=== PATIENT | male | born 1935 | race Two or more races ===

== ENCOUNTER → 2020-06-12 | Outpatient (CLI) | payer OTHER ==
--- NOTE | 2020-06-13 05:22 | MR ---
EXAMINATION TYPE: MR kidney wo/w con DATE OF EXAM: 06/12/2020 COMPARISON: None HISTORY: Rt Renal Cyst Complex CONTRAST: Standard multiplanar, multisequence MRI departmental protocol utilizing 7 mL intravenous Gadavist paul olinium contrast. Liver has normal size and contour. There is no focal defect. Gallbladder appears normal. The bile elvira ts are not dilated. Spleen has normal size.The pancreas appears normal. Pancreatic duct appears teresa l. There is no ascites. There is no adrenal mass. There are multiple bilateral renal cortical cysts. The largest measures 2 cm in the anterior right ki dney. There is no pathologic enhancement. The renal cysts do not show any enhancement. There is no ev idence of retroperitoneal adenopathy. There is 3.3 cm aneurysm of the lower abdominal aorta. IMPRESSION: Multiple bilateral renal cortical cysts. No evidence of a solid renal mass. Abdominal aortic aneurysm.
== END | disposition home or self-care (01) ==
LOC: RADMRIMAIN 16:53
PROVIDERS: ATTEND Urology
DX: N28.1 Cyst of kidney, acquired (principal); I71.4 Abdominal aortic aneurysm, without rupture
CPT/HCPCS: 74183; A9585

== ENCOUNTER → 2020-07-20 | Outpatient (CLI) | payer OTHER ==
--- NOTE | 2020-07-20 16:35 | MR ---
EXAMINATION TYPE: MR knee LT wo con DATE OF EXAM: 07/20/2020 COMPARISON: None available. HISTORY: Increased left knee pain TECHNIQUE: Multiplanar, multisequence imaging of the left knee is performed without IV contrast. FINDINGS: MEDIAL MENISCUS: Extensive, complex tear of the posterior horn and body. LATERAL MENISCUS: Htko-wd-foryclys mucoid degeneration without definite tear seen. CRUCIATE LIGAMENTS: The anterior and posterior cruciate ligaments are intact and unremarkable. COLLATERAL LIGAMENTS: Moderate bowing and increased signal within the medial collateral ligament, con sistent with grade 2 sprain. The lateral collateral ligament complex is grossly intact. EXTENSOR MECHANISM: Visualized quadriceps and patellar tendons are intact. EFFUSION: Moderate knee joint effusion. POPLITEAL CYST: No significant popliteal/bangura cyst. TRICOMPARTMENT SPACES: Mild to moderate joint space narrowing of the medial compartment, otherwise mi ld elsewhere. CARTILAGE: Medial compartment chondromalacia with large full-thickness chondral defects overlying the tibial plateau and femoral condyle. Small full-thickness chondral defect overlying the lateral tibia l plateau. Small partial thickness chondral defect involving the lateral compartment. BONE MARROW SIGNAL: Moderate bone marrow edema involving the medial femoral condyle and medial tibial plateau. OTHER: Moderate soft tissue edema about the knee most pronounced at the anterior medial compartment. IMPRESSION: Complex tearing of the medial meniscus posterior horn and body. Also medial compartment chondromalaci a with large full-thickness chondral defect. Associated moderate to marked bone marrow edema in the m edial compartment, likely reactive. No fracture line is seen. Grade 2 MCL sprain. Moderate soft tissue edema and joint effusion. 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
== END | disposition home or self-care (01) ==
LOC: RADMRIMAIN 09:38
PROVIDERS: ATTEND Nurse Practitioner Family
DX: S83.242A Other tear of medial meniscus, current injury, left knee, initial encounter (principal); S83.412A Sprain of medial collateral ligament of left knee, initial encounter; M79.89 Other specified soft tissue disorders; M94.262 Chondromalacia, left knee; R60.0 Localized edema; Z88.8 Allergy status to other drugs, medicaments and biological substances

== ENCOUNTER → 2021-12-02 | Outpatient (CLI) | payer OTHER | END | disposition home or self-care (01) | LOC: LABWHC1 09:31 | PROVIDERS: ATTEND Orthopaedic Surgery | DX: Z01.812 Encounter for preprocedural laboratory examination (principal); Z22.322 Carrier or suspected carrier of Methicillin resistant Staphylococcus aureus; M17.12 Unilateral primary osteoarthritis, left knee | CPT/HCPCS: 87070 ==

== ENCOUNTER 2021-12-23 10:13 | Day surgery (SDC) | payer OTHER ==
[2021-12-19 11:48] VITALS: BMI 23.6
--- NOTE | 2021-12-22 11:00 | HP ---
HISTORY AND PHYSICAL CHIEF COMPLAINT: Left knee pain. HISTORY OF PRESENT ILLNESS: The patient is an 86-year-old retired gentleman who presents with progressive left knee pain for the past several years, worsening recently. He notes anterior medial pain that increases with sitting, standing and prolonged walking. He notes it locks and merly on him. He has tried medications in addition to injections, with only temporary partial relief. PAST MEDICAL HISTORY: Significant for COPD and renal disease. PAST SURGICAL HISTORY: Significant for prostate surgery along with basal cell removal. CURRENT MEDICATIONS: Albuterol, amlodipine, aspirin, atorvastatin and Tylenol. ALLERGIES: HE DENIES DRUG ALLERGIES. FAMILY HISTORY: Significant for heart disease. SOCIAL HISTORY: Significant for previous tobacco use. REVIEW OF SYSTEMS: Sixteen-point review of systems otherwise reviewed and is noncontributory. PHYSICAL EXAMINATION: On examination, the patient is approximately 5 feet 7 inches, 145 pounds of mesomorphic habitus. HEENT exam is nonfocal. Neck is supple. He has painless passive motion of the left hip. Straight-leg raise is negative. Active motion of left knee: Minus 20 to 115 degrees of flexion. He has a large effusion. He is tender about the medial joint line. Collaterals are stable. Tevin is negative. Sofiya's is equivocal. He has genu varum alignment. His distal neurovascular exam appears intact in the left lower extremity. Weightbearing notch, lateral and Merchant views of the left knee obtained in the office show severe medial compartment osteoarthrosis with [id number] changes and varus deformity. IMPRESSION: 1. Left knee severe medial compartment osteoarthrosis. 2. History of chronic obstructive pulmonary disease. 3. History of renal disease. RECOMMENDATIONS: I talked to the patient at length regarding his condition along with treatment options. At this point he is quite symptomatic and limited because of pain related to his osteoarthrosis despite extensive previous conservative measures. After thorough discussion, he opts to proceed with surgery. We will plan to proceed with left total knee arthroplasty. We will institute DVT prophylaxis postoperatively. MMODL / IJN: [id number] /
[~2021-12-23 10:13] MED LIST: ACETAMINOPHEN TAB 500 MG TAB PO PRN; HYDROmorphone 0.5 MG/0.5 ML SYRINGE IVP PRN; MELOXICAM 7.5 MG TAB PO PRN; TRANEXAMIC ACID IN NACL,ISO-OS 1,000 MG in SALINE 1 100ML.BAG IVPB PRN
[2021-12-23] MEDS: LACTATED RINGERS 1,000 ML IV SCH ×2 (11:10→15:25)
[2021-12-23] MEDS: DEXAMETHASONE SOD PHOSPHATE 4 MG/ML 1 ML VIAL IV ONE ×2 (11:27→15:24)
[2021-12-23] MEDS: ONDANSETRON 4 MG/2 ML VIAL IVP ONE ×2 (11:27→15:24)
[2021-12-23] MEDS ORDERED: MIDAZOLAM 2 MG/2 ML VIAL IVP ONE ×2 (11:36→11:39)
--- NOTE | 2021-12-23 11:59 | P.ANPRN ---
Procedure Note - Anesthesia - Nerve Block Performed Left Adductor Canal Infusion Time Out Performed: Yes (1134) Date of Procedure: 12/23/21 Procedure Start Time: 11:35 Procedure Stop Time: 11:50 Location of Patient: PreOp Indication: Acute Post-Operative Pain, Requested by Surgeon Sedation Type: Sedate with meaningful contact maintained Preparation: Sterile Prep, Sterile Dressing Position: Supine Catheter Depth at Skin (cm): 5 Catheter: Indwelling Needle Types: Pajunk Needle Gauge: 18, 20 Ultrasound used to visualize needle placement: Yes Ultrasound used to observe medication spread: Yes Injectate: 0.5% Ropivacaine (see comment for volume) Blood Aspirated: No Pain Paresthesia on Injection Noted: No Resistance on Injection: Normal Image Stored and Saved: Yes Events: Uneventful and Well Tolerated (10 ML of preservative-free normal saline mixed with 10 mL of 0.5% ropivacaine)
--- NOTE | 2021-12-23 12:00 | P.ANPRN ---
Procedure Note - Anesthesia - Nerve Block Performed Left iPack Single Time Out Performed: Yes (1134) Date of Procedure: 12/23/21 Procedure Start Time: 11:35 Procedure Stop Time: 11:50 Location of Patient: PreOp Indication: Acute Post-Operative Pain, Requested by Surgeon Sedation Type: Sedate with meaningful contact maintained Preparation: Sterile Prep Position: Supine Needle Types: Pajunk Needle Gauge: 20 Ultrasound used to visualize needle placement: Yes Ultrasound used to observe medication spread: Yes Injectate: 0.5% Ropivacaine (see comment for volume) Blood Aspirated: No Pain Paresthesia on Injection Noted: No Resistance on Injection: Normal Image Stored and Saved: Yes Events: Uneventful and Well Tolerated (10 ML of preservative-free normal saline mixed with 10 mL of 0.5% ropivacaine)
[2021-12-23] MEDS ORDERED: ROPIVACAINE 5 MG/ML 30 ML VIAL ONE (12:24)
[2021-12-23] MEDS ORDERED: TRANEXAMIC ACID IN NACL,ISO-OS 1,000 MG/100 ML BAG ONE (12:24)
[2021-12-23] MEDS ORDERED: PROPOFOL 10 MG/ML 20 ML VIAL IV ONE (12:24)
[2021-12-23] MEDS ORDERED: SODIUM CHLORIDE 0.9% (PF) 10 ML VIAL ONE (12:24)
[2021-12-23] MEDS ORDERED: MIDAZOLAM 2 MG/2 ML VIAL ONE (12:24)
[2021-12-23] MEDS ORDERED: ceFAZolin 1,000 MG in SODIUM CHLORIDE 0.9% 1,000 ML IRRIGATION ONE (12:54)
[2021-12-23] MEDS ORDERED: HYDROmorphone 0.5 MG/0.5 ML SYRINGE IVP PRN (14:06)
[2021-12-23] MEDS ORDERED: MAGNESIUM HYDROXIDE 2,400 MG/10 ML CUP PO PRN (14:06)
[2021-12-23] MEDS ORDERED: NALOXONE 0.4 MG/ML 1 ML VIAL IV PRN (14:06)
[2021-12-23] MEDS ORDERED: HYDROcodone/APAP 5-325MG 1 EACH TAB PO PRN (14:06)
--- NOTE | 2021-12-23 14:27 | P.OP ---
Date of Procedure: 12/23/21 Preoperative Diagnosis: Left knee severe tricompartmental osteoarthrosis Postoperative Diagnosis: Same Procedure(s) Performed: Left total knee arthroplastycementedposterior stabilized Implants: Depuy Attune size 5 cemented femoral component, size 5 cemented tibial component, 10 mm articular surface, 38 mm cemented patellar component. This is a posterior stabilized implant. Anesthesia: regional, spinal Surgeon: Dirk Jacobson German Tutor #1: Alfonzo England Estimated Blood Loss (ml): 50 Pathology: other (Bone fragments) Condition: stable Disposition: PACU Indications for Procedure: The patient's an 86-year-old male who presents with progressive left knee pain secondary to osteoarthrosis despite extensive conservative measures. He discussion of the risks and benefits of operative intervention versus continued conservative measures was made with the patient. He opted to proceed with surgery. Operative risks to include infection, neurovascular injury, development of blood clots, possible component loosening/failure and need for subsequent procedures was discussed. Informed consent was obtained. Operative Findings: As below Description of Procedure: The patient was brought to the operating room, and after induction of spinal anesthesia the left lower extremity was prepped and draped in a normal fashion. The tourniquet was inflated to 270 mm marker. A longitudinal incision extending 3 finger breaths above the superior pole of patella extending to the medial aspect the tibial tubercle was then made. The skin and subcutaneous tissues were divided sharply. Electrocautery was used for hemostasis. A medial parapatellar arthrotomy was performed. The medial soft tissues to include the superficial and deep portions of the medial collateral ligament were elevated subperiosteally. The patella was everted. A portion of the retropatellar fat pad was excised sharply. The anterior cruciate ligament was sacrificed. Blunt retractors were placed. A starting hole was made in the distal femur 1 cm anterior to the posterior cruciate ligament origin. An intramedullary femoral guide was then inserted planning on 5 valgus distal cut with 9 mm distal resection. The cutting block was pinned in place. The distal cut was then made. The posterior referencing sizing guide was utilized. I felt size 5 was most appropriate. 3 of external rotation was built into the system and verified off the trans-epicondylar axis and the posterior condyles. The cutting block was pinned in place. The anterior, posterior, and chamfer cuts then made. Bone fragments were removed. The intercondylar guide was placed and the notch cut was made with a sagittal saw. The bone block was removed in one fragment. The trial component was then placed. There is good anterior to posterior and medial to lateral fit. The distal peg holes were drilled. The trial component was removed. Attention was then paid towards preparing the proximal femur. An extra medullary guide was utilized in line with the tibial shaft and second metatarsal distally. I planned on 2 mm resection from the medial compartment. The cutting block was pinned in place. The proximal tibial cut was then made. The bone was removed in one fragment. The remnants of the medial and lateral menisci were excised at the capsular junction with electrocautery. The tibia sized most appropriately at size 5. The trial femoral and tibial components were placed along with a 10 mm mm articular surface. I was able to obtain full flexion and extension with internal and external rotation. After several flexion and extension cycles, the tibial rotation was marked with electrocautery line with the medial one third of the tibial tubercle. Attention was then paid towards preparing the patella. A patella reamer was utilized taking stem to 14 mm of bone stock. A good flush cut was made. The patella sized most appropriately 38 mm. The peg holes were drilled. The trial components placed. I had good patellofemoral tracking with no hands technique. The trial components were then removed. The tibia was prepared in the appropriate rotation with appropriate drill and keel punch. The posterior osteophytes were removed with a curved osteotome. The flexion and extension gaps were checked and felt to be symmetric at 10 mm. A trial components were then removed. The bony surfaces were prepared with pulsatile lavage and dried. The tibial component was then cemented place was fully seated. Excess cement was removed. The femoral component cemented place and was fully seated. Excess cement was removed. The trial 10 mm articular surface was placed and the knee was put in full extension. The patella component was cemented place. After the cement had sufficiently hardened, the knee was again taken through a range of motion. Again I was able to obtain full flexion and extension with varus and valgus stress. The trial 10 mm articular surface was removed and the final one inserted. This was fully seated. Care was taken to avoid any soft tissue interposition. Pulsatile lavage was again utilized. The medial parapatellar arthrotomy was closed with #2 Ethibond suture. The tourniquet was deflated with approximately 60 minutes total tourniquet time. Final hemostasis was obtained with the cautery. There was minimal bleeding therefore a deep drain was not placed. The subcutaneous tissues were reapproximated with interrupted 2-0 Vicryl sutures. The skin was reapproximated with 3-0 subcuticular strata fix suture. Skin tape and adhesive was applied. A sterile dressing was applied. The patient was awoken from sedation and transferred to recovery room in good condition. Blood loss was estimated at 50 mL. No complications were incurred. Sponge and needle counts were correct at the end of the case. Alfonzo GARCIA assisted during the major components of this case to include exposure, bone resection, implantation, and closure.
[2021-12-23] MEDS ORDERED: ROPIVACAINE 0.2%-NS ON-Q PUMP 1,090 MG, EMPTY PAIN BALL 1 EACH MISCELLANE PRN (14:36)
--- NOTE | 2021-12-23 14:51 | XR ---
EXAMINATION TYPE: XR knee limited LT DATE OF EXAM: 12/23/2021 COMPARISON: 02/03/2021 HISTORY: 86-year-old male evaluation for postoperative abnormality in alignment TECHNIQUE: 2 views FINDINGS: Images show placement of left total knee arthroplasty. Both distal femoral and proximal tibial compon ents of the prosthesis are well seated without periprosthetic fracture. Underlying small joint effusi on along with intra-articular air as well as scattered soft tissue air related to recent operation. V ascular calcifications are present. Alignment grossly anatomic. IMPRESSION: Uncomplicated postoperative appearance left total knee arthroplasty.
[2021-12-23] MEDS: HYDROcodone/APAP 7.5-325MG 1 EACH TAB PO PRN (17:09)
[2021-12-23] MEDS ORDERED: ALBUTEROL NEBULIZED 1.25 MG/3 ML INHALATION PRN (18:08)
--- NOTE | 2021-12-23 18:16 | P.CONS ---
History of Present Illness - Reason for Consult Consult date: 12/23/21 - Chief Complaint left knee pain - History of Present Illness 86-year-old male with history of left knee osteoarthritis with progressive pain worsening over the past 6 months. Pain has been debilitating for the patient and he eventually decided to do something about it. Patient currently has 5 out of 10 pain in the left knee. He is status post left knee total arthroplasty. His medical history significant for hypertension, hyperlipidemia, COPD. Patient denied having any fevers chills, shortness of breath, chest pain, recent illness, cough, nausea, vomiting. Review of Systems Complete review of system performed, pertinent positives per HPI, otherwise negative Past Medical History Past Medical History: Cancer, COPD, Hyperlipidemia, Hypertension, Renal Disease Additional Past Medical History / Comment(s): Hx skin cancer, hx prostate cancer 15-20 yrs ago. 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 Past Anesthesia/Blood Transfusion Reactions: No Reported Reaction Past Psychological History: No Psychological Hx Reported Smoking Status: Former smoker Past Alcohol Use History: None Reported Additional Past Alcohol Use History / Comment(s): Quit smoking in 2017, smoked for 50 yrs, 2 ppd. Past Drug Use History: None Reported - Past Family History Mother Family Medical History: No Reported History Medications and Allergies Home Medications Medication Instructions Recorded Confirmed Type Albuterol Nebulized [Ventolin 1.25 mg INHALATION Q6H PRN 12/19/21 12/23/21 History Nebulized] Ascorbic Acid [Vitamin C] 500 mg PO DAILY 12/19/21 12/23/21 History Aspirin 81 mg PO DAILY 12/19/21 12/19/21 History Atorvastatin Calcium [Lipitor] 20 mg PO DAILY 12/19/21 12/23/21 History Budesonide-Formot 160-4.5 Mcg 2 puff INHALATION BID 12/19/21 12/23/21 History [Symbicort 160-4.5 Mcg Inhaler] Bumetanide 0.5 mg PO DAILY 12/19/21 12/23/21 History Cholecalciferol [Vitamin D3 (25 25 mcg PO DAILY 12/19/21 12/23/21 History Mcg = 1000 Iu)] Cyanocobalamin [Vitamin B-12] 500 mcg PO DAILY 12/19/21 12/23/21 History Fluticasone Propion/Salmeterol 1 inhalation PO BID 12/19/21 12/23/21 History [Fluticasone-Salmeterol 250-50] Ginkgo Biloba Bennett Extract [Ginkgo] 60 mg PO DAILY 12/19/21 12/19/21 History Lutein 10 mg PO DAILY 12/19/21 12/23/21 History Magnesium Oxide [Mag-Ox] 500 mg PO DAILY 12/19/21 12/23/21 History Montelukast Sodium [Singulair] 10 mg PO QAM 12/19/21 12/23/21 History Multivitamins, Thera [Multivitamin 1 tab PO DAILY 12/19/21 12/19/21 History (formulary)] Pyridoxine HCl (Vitamin B6) 100 mg PO DAILY 12/19/21 12/23/21 History [Vitamin B-6] Tiotropium 18 Mcg/Puff [Spiriva] 1 puff INHALATION DAILY 12/19/21 12/23/21 History Vit C/E/Zn/Coppr/Lutein/Zeaxan 1 each PO BID 12/19/21 12/19/21 History [Preservision Areds 2 Softgel] Zinc Acetate [Wilzin] 50 mg PO DAILY 12/19/21 12/23/21 History amLODIPine BESYLATE 5 mg PO QAM 12/19/21 12/23/21 History calcitrioL [Calcitriol] 0.25 mcg PO DAILY 12/19/21 12/23/21 History Allergies Allergy/AdvReac Type Severity Reaction Status Date / Time No Known Allergies Allergy Verified 12/23/21 10:51 Physical Exam Vitals: Vital Signs Temp Pulse Pulse Resp BP BP Pulse Ox 12/23/21 17:06 97.9 F 87 18 136/74 97 12/23/21 16:49 97.4 F L 81 18 166/76 96 12/23/21 16:06 97.8 F 18 L 18 133/67 96 12/23/21 15:11 74 16 153/67 100 12/23/21 15:06 98.4 F 81 17 166/69 96 12/23/21 14:56 75 16 146/67 100 12/23/21 14:41 73 16 110/53 100 12/23/21 14:26 96.9 F L 78 14 125/61 98 12/23/21 14:06 97.9 F 80 18 155/69 96 12/23/21 11:19 98.6 F 90 16 139/64 Intake and Output 12/23/21 12/23/21 12/23/21 06:59 14:59 22:59 Intake Total 851 100 Output Total 50 Balance 801 100 Intake: IV 851 100 Output: Estimated Blood Loss 50 Other: Voiding Method Urinal Weight 69 kg Constitutional: No acute distress, conversant, pleasant Eyes:Anicteric sclerae, moist conjunctiva, no lid-lag, PERRLA, ENMT: Oropharynx clear, no erythema, exudates Neck: Supple, FROM, no masses, or JVD, No carotid bruits, No thyromegaly Lungs: Clear to auscultation, Clear to percussion, Normal respiratory effort, no accessory muscle use Cardiovascular: Heart regular in rate and rhythm, No murmurs, gallops, or rubs, No peripheral edema Abdominal: Soft, Nontender, no guarding, rebound or rigidity, Normoactive bowel sounds, No hepatomegaly, No splenomegaly, No palpable mass Skin: Normal temperature, tone, texture, turgor, no induration, No subcutaneous nodules, No rash, lesions, No ulcers Extremities: Left knee with surgical dressing. No digital cyanosis, No clubbing, Pedal pulses intact and symmetrical, Radial pulses intact and symmetrical, No calf tenderness Psychiatric: Alert and oriented to person, place and time, appropriate affect, intact judgement Neuro: Muscles Strength 5/5 in all 4 extremities, Sensation to light touch grossly present throughout, Cranial nerves II-XII grossly intact, no focal sensory deficits Assessment and Plan Plan: Left knee pain status post total left knee arthroplasty Pain control with narcotics DVT prophylaxis, start when appropriate by the Surgical Team. PT Chronic conditions COPD Essential hypertension Hyperlipidemia All stable Resume home medications Thank you for the consult, please call with any questions.
[2021-12-23] MEDS: SYMBICORT 160-4.5 MCG INHALER INHALATION SCH (20:09)
[2021-12-23] MEDS ORDERED: CALCIUM CARBONATE LIQUID 500 MG/5 ML CUP PO STA (20:26)
[2021-12-23] MEDS ORDERED: SENNOSIDES-DOCUSATE SODIUM 1 EACH TAB PO SCH (21:00)
[2021-12-23] MEDS: ENOXAPARIN 30 MG/0.3 ML SYRINGE SQ SCH (21:55)
--- NOTE | 2021-12-24 07:27 | P.PN ---
Progress Note - Text Progress Note Date: 12/24/21 patient was seen and evaluated at bedside. Status post postoperative day 1 for left side total knee arthroplasty patient had adductor canal catheter for postop pain control. Patient rated pain at rest 2-3 out of 10 in severity. With activities pain levels 4-5 . Patient describes pain is aching, throbbing type on the sides of the knee and back of the knee. Patient started walking with support. With activity patient pain levels are 4-5 out of 10 in severity. With the help of oral pain medications pain levels are tolerable. Patient denied any weakness/ numbness in lower extremities. patient denied any fever, pain over the catheter site. Physical exam: Patient vital signs stable Patient is alert awake oriented 3 responding to all questions appropriately Examination of the catheter site showed dressing intact, no leaking fluid around the catheter, no redness, no tenderness over the catheter insertion area. plan: status post postoperative day 1 for right total knee arthroplasty with adductor canal catheter for pain control. Patient was discussed to continue the medication at the rate of 8 mL per hour until the pump is completely empty and instructed the patient how to discontinue the catheter.
[2021-12-24] MEDS ORDERED: IPRATROPIUM 0.5 MG/2.5 ML NEBU INHALATION SCH (08:00)
[2021-12-24] MEDS ORDERED: MONTELUKAST 10 MG TAB PO SCH (09:00)
[2021-12-24] MEDS ORDERED: ASPIRIN 81 MG PO SCH (09:00)
[2021-12-24] MEDS ORDERED: amLODIPine 5 MG TAB PO SCH (09:00)
[2021-12-24] MEDS ORDERED: ASCORBIC ACID 500 MG TAB PO SCH (09:00)
[2021-12-24] MEDS ORDERED: ATORVASTATIN 20 MG TAB PO SCH (09:00)
[2021-12-24] MEDS: HYDROcodone/APAP 7.5-325MG 1 EACH TAB PO PRN (09:22)
[2021-12-24] MEDS: ENOXAPARIN 30 MG/0.3 ML SYRINGE SQ SCH (09:22)
[2021-12-24 09:25] VITALS: BP 134/68; RESP 18; TEMP 97.9
[2021-12-24] MEDS: SYMBICORT 160-4.5 MCG INHALER INHALATION SCH (09:28)
[2021-12-24 09:31] VITALS: PULSE 100
[2021-12-24 10:32] LABS: Basophils # (A) 0.02 X 10*3/uL (0.00-0.10); Basophils % (A) 0.2 %; Eosinophils # (A) 0 X 10*3/uL (0.04-0.35); Eosinophils % (A) 0 %; HCT 38.5 % (39.6-50.0); HGB 12.9 g/dL (13.0-17.0); Immature Grans, Automated 1.1 %; Lymphocytes # (A) 1.14 X 10*3/uL (0.90-5.00); MCH 32.6 pg (27.0-32.0); MCHC 33.5 g/dL (32.0-37.0); MCV 97.2 fL (80.0-97.0); Mean Platelet Volume 9.9 fL (9.5-12.2); Monocytes # (A) 1.38 X 10*3/uL (0.20-1.00); NRBC Per 100 WBC 0 /100 WBCS (0.0-0.0); Neutrophils # (A) 9.92 X 10*3/uL (1.80-7.70); Neutrophils % (A) 78.7 %; Platelet Count 243 X 10*3/uL (140-440); RBC 3.96 X 10*6/uL (4.40-5.60)
--- NOTE | 2021-12-24 10:54 | P.DS ---
Providers Date of admission: 12/23/2021 Expected date of discharge: 12/24/21 Attending physician: Dirk Jacobson Consults: 12/23/21 14:10 Consult Physician Routine Consulting Provider: Laxmi Boyce Consult Reason/Comments: Medical Management s/p left total knee arthroplasty Do you want consulting provider notified?: Yes Primary care physician: Stated None Hospital Course: Date of admission: 12/23/2021 Date of discharge: 12/24/2021 Admission diagnosis: Left knee osteoarthritis Discharge diagnosis: Same Attending physician: Dr. Jacobson Surgical procedures: Left total knee arthroplasty Brief history: Patient is a 86-year-old male with a history of progressive primary left knee osteoarthritis. At this point patient has failed conservative treatment measures and has opted to proceed with a elective left total knee arthroplasty. Hospital course: Details of patient's surgery can be found in operative report. Patient tolerated the procedure well and was subsequently transported to orthopedic floor. Patient's orthopeidc and medical care was provided daily. Patient had daily laboratory tests performed for evaluation of overall blood counts. Patient had daily physical therapy to include strengthening range of motion as well as education with walker ambulation. Patient was treated with Lovenox for their postoperative DVT prophylaxis during their inpatient stay. Patient was noted to have a relatively uneventful postoperative course. Patient reported satisfactory pain control with oral pain medications by postoperative day 1. Patient showed satisfactory progress with physical therapy. Patient moved steadily through the program and had no difficulty meeting the goals by postoperative day 1. Given patient's otherwise satisfactory course and having met physical therapy goals, plan is to discharge patient home with health services on postoperative day 1. Discharge condition/disposition: Patient will be discharged home with health services in stable condition. Discharge medications: Instructions are given on resumption of patient's normal daily medications per primary care recommendation, in addition patient will be prescribed [place] 5mg/325mg; Colace; Eliquis 2.5 mg BID x 2 weeks. Discharge instructions: 1. Wound care and infection precautions, keep incision dry and covered while showering, no lotions, creams, moisturizers. No soaking, tubs, pools, hottubs. Do not scrub over the incision. 2. Weight-bear as tolerated with walker / cane until follow-up. 3. Ice and elevate when necessary. Do not exceed 20 minutes per hour with ice pack. 4. Utilize compression sleeve until seen at first follow up appointment. 5. Visiting nursing care. 6. Home physical therapy including home CPM. 7. Pain meds and anticoagulants per prescription. 8. Pain medication has potential to cause constipation. Increase oral fluid and fiber intake. Contact primary care provider if you have not had a bowel movement within 48 hours after discharge 9. No anti-inflammatory medication until discussed at first post operative visit, this including Motrin, Aleve, Mobic, Diclofenac. 10. Follow up in office at 2 weeks postop with Bonifacio Rodriguez PA-C / Alfonzo England PA-C 11. Follow up with your primary care doctor 7-10 days after discharge. 12. Contact [facility] with any questions, . Assessment: Left knee osteoarthritis Procedures: Left total knee arthroplasty Patient Condition at Discharge: Good Plan - Discharge Summary Discharge Rx Participant: Yes New Discharge Prescriptions: New HYDROcodone/APAP 5-325MG [[place] 5-325] 1 tab PO Q6HR PRN #36 tab PRN Reason: Pain Apixaban [Eliquis] 2.5 mg PO BID #60 tab Docusate [Colace] 100 mg PO DAILY #30 capsule No Action Cyanocobalamin [Vitamin B-12] 500 mcg PO DAILY Cholecalciferol [Vitamin D3 (25 Mcg = 1000 Iu)] 25 mcg PO DAILY calcitrioL [Calcitriol] 0.25 mcg PO DAILY amLODIPine BESYLATE 5 mg PO QAM Zinc Acetate [Wilzin] 50 mg PO DAILY Vit C/E/Zn/Coppr/Lutein/Zeaxan [Preservision Areds 2 Softgel] 1 each PO BID Ginkgo Biloba [place] Extract [Ginkgo] 60 mg PO DAILY Bumetanide 0.5 mg PO DAILY Tiotropium 18 Mcg/Puff [Spiriva] 1 puff INHALATION DAILY Multivitamins, Thera [Multivitamin (formulary)] 1 tab PO DAILY Montelukast Sodium [Singulair] 10 mg PO QAM Budesonide-Formot 160-4.5 Mcg [Symbicort 160-4.5 Mcg Inhaler] 2 puff INH ALATION BID Ascorbic Acid [Vitamin C] 500 mg PO DAILY Albuterol Nebulized [Ventolin Nebulized] 1.25 mg INHALATION Q6H PRN PRN Reason: COPD Pyridoxine HCl (Vitamin B6) [Vitamin B-6] 100 mg PO DAILY Magnesium Oxide [Mag-Ox] 500 mg PO DAILY Lutein 10 mg PO DAILY Fluticasone Propion/Salmeterol [Fluticasone-Salmeterol 250-50] 1 inhalation PO BID Atorvastatin Calcium [Lipitor] 20 mg PO DAILY Discharge Medication List Albuterol Nebulized [Ventolin Nebulized] 1.25 mg INHALATION Q6H PRN 12/19/21 [History] Ascorbic Acid [Vitamin C] 500 mg PO DAILY 12/19/21 [History] Atorvastatin Calcium [Lipitor] 20 mg PO DAILY 12/19/21 [History] Budesonide-Formot 160-4.5 Mcg [Symbicort 160-4.5 Mcg Inhaler] 2 puff INHALATION BID 12/19/21 [History] Bumetanide 0.5 mg PO DAILY 12/19/21 [History] Cholecalciferol [Vitamin D3 (25 Mcg = 1000 Iu)] 25 mcg PO DAILY 12/19/21 [History] Cyanocobalamin [Vitamin B-12] 500 mcg PO DAILY 12/19/21 [History] Fluticasone Propion/Salmeterol [Fluticasone-Salmeterol 250-50] 1 inhalation PO BID 12/19/21 [History] Ginkgo Biloba [place] Extract [Ginkgo] 60 mg PO DAILY 12/19/21 [History] Lutein 10 mg PO DAILY 12/19/21 [History] Magnesium Oxide [Mag-Ox] 500 mg PO DAILY 12/19/21 [History] Montelukast Sodium [Singulair] 10 mg PO QAM 12/19/21 [History] Multivitamins, Thera [Multivitamin (formulary)] 1 tab PO DAILY 12/19/21 [History] Pyridoxine HCl (Vitamin B6) [Vitamin B-6] 100 mg PO DAILY 12/19/21 [History] Tiotropium 18 Mcg/Puff [Spiriva] 1 puff INHALATION DAILY 12/19/21 [History] Vit C/E/Zn/Coppr/Lutein/Zeaxan [Preservision Areds 2 Softgel] 1 each PO BID 12/19/21 [History] Zinc Acetate [Wilzin] 50 mg PO DAILY 12/19/21 [History] amLODIPine BESYLATE 5 mg PO QAM 12/19/21 [History] calcitrioL [Calcitriol] 0.25 mcg PO DAILY 12/19/21 [History] Apixaban [Eliquis] 2.5 mg PO BID #60 tab 12/24/21 [Rx] Docusate [Colace] 100 mg PO DAILY #30 capsule 12/24/21 [Rx] HYDROcodone/APAP 5-325MG [[place] 5-325] 1 tab PO Q6HR PRN #36 tab 12/24/21 [Rx] Follow up Appointment(s)/Referral(s): Alfonzo England, JOSE ENRIQUE [PHYSICIAN EVENTS TRAFFIC CONTROLLER] - 2 Weeks Patient Instructions/Handouts: *Surgery [facility] - On-Q Pain Pump Discharge Instructions, Knee Replacement (DC) Activity/Diet/Wound Care/Special Instructions: Orthopedic Discharge Instructions: 1. Wound care and infection precautions, keep incision dry and covered while showering, no lotions, creams, moisturizers. No soaking, pools, hot tubs. Do not scrub over incision. 2. Weight-bear as tolerated with walker / cane until follow-up. 3. Ice and elevate when necessary. Do not exceed 20 minutes per hour with ice pack. 4. Utilize compression sleeve until seen at first follow up appointment. 5. Pain meds and anticoagulants per prescription. 6. Pain medication has potential to cause constipation. Increase oral fluid and fiber intake. Contact primary care provider if you have not had a bowel movement within 48 hours after discharge. 7. No anti-inflammatory medication until discussed at first post operative visit, this including Motrin, Aleve, Mobic, Diclofenac. 8. Follow up in office at 2 weeks postop with Bonifacio Rodriguez PA-C / Alfonzo England PA-C 9. Follow up with your primary care doctor 7-10 days after discharge. 10. Contact [facility] with any questions, . Keep incision clean, dry, intact. Keep mesh tape on until follow-up appointment in office in 2 weeks. While showering, cover mesh tape with Saran wrap. Medications: [place] 5 mg/325 mg; Colace; Eliquis 2.5 mg BID x 2 weeks Discharge Disposition: HOME WITH HOME HEALTH SERVICES
--- NOTE | 2021-12-24 11:44 | P.PN ---
Subjective Progress Note Date: 12/24/21 Principal diagnosis: knee pain Doing well, has some mild knee pain worse with ambulation. Able to walk well. No cp or sob. Objective - Vital Signs Vital signs: Vital Signs Temp 97.9 F 12/24/21 08:00 Pulse 100 12/24/21 09:30 Resp 18 12/24/21 08:00 BP 134/68 12/24/21 08:00 Pulse Ox 97 12/24/21 08:00 Intake & Output 12/23/21 12/24/21 12/24/21 18:59 06:59 18:59 Intake Total 1531 1400 Output Total 240 Balance 1291 1400 Weight 69 kg Intake: IV 951 Intake, IV Titration 1200 Amount ceFAZolin 2 gm In Sodium 1200 Chloride 0.9% 50 ml @ 100 mls/hr IVPB Q8H [facility] Rx#: [id number] Oral 580 200 Output: Urine 190 Estimated Blood Loss 50 Other: Voiding Method Urinal Urinal # Voids 2 # Bowel Movements 1 - Exam Constitutional: No acute distress, conversant, pleasant Eyes:Anicteric sclerae, moist conjunctiva, no lid-lag, PERRLA, ENMT: Oropharynx clear, no erythema, exudates Neck: Supple, FROM, no masses, or JVD, No carotid bruits, No thyromegaly Lungs: Clear to auscultation, Clear to percussion, Normal respiratory effort, no accessory muscle use Cardiovascular: Heart regular in rate and rhythm, No murmurs, gallops, or rubs, No peripheral edema Abdominal: Soft, Nontender, no guarding, rebound or rigidity, Normoactive bowel sounds, No hepatomegaly, No splenomegaly, No palpable mass Skin: Normal temperature, tone, texture, turgor, no induration, No subcutaneous nodules, No rash, lesions, No ulcers Extremities: Left knee dressings. No digital cyanosis, No clubbing, Pedal pulses intact and symmetrical, Radial pulses intact and symmetrical, No calf tenderness Psychiatric: Alert and oriented to person, place and time, appropriate affect, intact judgement Neuro: Muscles Strength 5/5 in all 4 extremities, Sensation to light touch grossly present throughout, Cranial nerves II-XII grossly intact, no focal sensory deficits - Labs CBC & Chem 7: 12/24/21 05:12 Labs: Abnormal Lab Results - Last 24 Hours (Table) 12/24/21 Range/Units 05:12 WBC 12.60 H (4.50-10.00) X 10*3/uL RBC 3.96 L (4.40-5.60) X 10*6/uL Hgb 12.9 L (13.0-17.0) g/dL Hct 38.5 L (39.6-50.0) % MCV 97.2 H (80.0-97.0) fL MCH 32.6 H (27.0-32.0) pg Immature Gran # 0.14 H (0.00-0.04) X 10*3/uL Neutrophils # 9.92 H (1.80-7.70) X 10*3/uL Monocytes # 1.38 H (0.20-1.00) X 10*3/uL Eosinophils # 0 L (0.04-0.35) X 10*3/uL Assessment and Plan Plan: Left knee pain status post total left knee arthroplasty Pain control with narcotics DVT prophylaxis, start when appropriate by the Surgical Team. PT Chronic conditions COPD Essential hypertension Hyperlipidemia All stable Resume home medications Dispo: planning home today per surgery Thank you for the consult, please call with any questions.
--- NOTE | 2021-12-24 13:09 | P.PN ---
Subjective Progress Note Date: 12/24/21 Principal diagnosis: Left knee osteoarthritis Patient was seen at bedside this morning resting, sitting up in chair with legs elevated. Patient says he did get up with physical therapy this morning and walked down the arvizu and up-and-down a couple steps. Patient says he is ready to go home. Patient says he does have a walker for home. Patient says he has been icing his knee. Patient says he did have a small bowel movement since surgery yesterday. Patient says he is having some pain at the front of the knee. Patient denies chest pain, fever, shortness breath, nausea, vomiting, change in vision, loss of bowel/bladder control. Objective - Vital Signs Vital signs: Vital Signs Temp 97.9 F 12/24/21 08:00 Pulse 100 12/24/21 09:30 Resp 18 12/24/21 08:00 BP 134/68 12/24/21 08:00 Pulse Ox 97 12/24/21 08:00 Intake & Output 12/23/21 12/24/21 12/24/21 18:59 06:59 18:59 Intake Total 1531 1400 Output Total 240 Balance 1291 1400 Weight 69 kg Intake: IV 951 Intake, IV Titration 1200 Amount ceFAZolin 2 gm In Sodium 1200 Chloride 0.9% 50 ml @ 100 mls/hr IVPB Q8H [facility] Rx#: [id number] Oral 580 200 Output: Urine 190 Estimated Blood Loss 50 Other: Voiding Method Urinal Urinal # Voids 2 # Bowel Movements 1 - Exam Left knee: Incision is clean, dry, and intact. The mesh tape is in good condition. There is minimal soft tissue swelling and ecchymosis surrounding the medial and lateral aspects of the incision. Calf is soft, no tenderness with palpation. Plantar flexion, dorsiflexion, EHL, FHL are intact. Sensory exam to light touch throughout the extremity is intact, dorsal pedis pulses 2+. - Labs CBC & Chem 7: 12/24/21 05:12 Labs: Abnormal Lab Results - Last 24 Hours (Table) 12/24/21 Range/Units 05:12 WBC 12.60 H (4.50-10.00) X 10*3/uL RBC 3.96 L (4.40-5.60) X 10*6/uL Hgb 12.9 L (13.0-17.0) g/dL Hct 38.5 L (39.6-50.0) % MCV 97.2 H (80.0-97.0) fL MCH 32.6 H (27.0-32.0) pg Immature Gran # 0.14 H (0.00-0.04) X 10*3/uL Neutrophils # 9.92 H (1.80-7.70) X 10*3/uL Monocytes # 1.38 H (0.20-1.00) X 10*3/uL Eosinophils # 0 L (0.04-0.35) X 10*3/uL Assessment and Plan Assessment: 1. Left knee osteoarthritis -Postoperative day #1 status post left total knee arthroplasty Plan: 1. Left knee osteoarthritis - left total knee arthroplasty performed yesterday, 12/23/2021. Patient stable at bedside this morning. Plan discharge home today with health services 2. Appreciate medical management 3. Pain management - [facility]; Dilaudid only if necessary 4. DVT prophylaxis - Lovenox in hospital; Eliquis 2.5 mg BID x 2 weeks once home 5. GI prophylaxis - Colace 6. PT/OT - weight bearing as tolerated with walker 7. Encourage incentive spirometer use 8. Discharge planning - discharge home today with health services Time with Patient: Less than 30
== END 2021-12-24 11:39 | disposition home health service (06) ==
LOC: OR 10:13 → 4SSUR 14:26 → OR 12-24 11:39
PROVIDERS: ATTEND Orthopaedic Surgery
DX: M17.12 Unilateral primary osteoarthritis, left knee (principal); J44.9 Chronic obstructive pulmonary disease, unspecified; N28.9 Disorder of kidney and ureter, unspecified; Z98.890 Other specified postprocedural states; Z82.49 Family history of ischemic heart disease and other diseases of the circulatory system; Z87.891 Personal history of nicotine dependence; M21.162 Varus deformity, not elsewhere classified, left knee; Z20.822 Contact with and (suspected) exposure to COVID-19; I10 Essential (primary) hypertension; E78.5 Hyperlipidemia, unspecified; Z90.79 Acquired absence of other genital organ(s); Z97.2 Presence of dental prosthetic device (complete) (partial); Z79.899 Other long term (current) drug therapy; Z79.82 Long term (current) use of aspirin; Z79.51 Long term (current) use of inhaled steroids
CPT/HCPCS: 27447; 94640 ×3; 97161; 64999; 64448; 76942; 85025; 88300; 87635; 73560; C1713 ×2; C1776; J2250; J1100; J0690 ×3; J2405; J1650; J2795 ×2; J2704

== ENCOUNTER → 2022-02-17 | Outpatient (CLI) | payer OTHER ==
--- NOTE | 2022-02-17 20:36 | US ---
EXAMINATION TYPE: US kidneys/renal and bladder DATE OF EXAM: 02/17/2022 COMPARISON: Correlation MRI 06/12/2020 CLINICAL HISTORY: 86-year-old male N18.32 CHRONIC KIDNEY DISEASE. CKD, known cystic kidneys TECHNIQUE: Multiple sonographic images of the kidneys and bladder are obtained. FINDINGS: EXAM MEASUREMENTS: Right Kidney: 10.5 x 4.9 x 4.9 cm Left Kidney: 10.6 x 5.5 x 5.0 cm Right Kidney: Thin and echogenic renal cortex. Multiple cysts, largest lower pole= 2.4 x 1.8 x 2.4 cm . No hydronephrosis. Left Kidney: Pain and echogenic renal cortex. Small cyst lower pole= 0.7 cm. No hydronephrosis. Bladder: Possible multiple small bladder wall diverticula Bilateral Jets seen: Yes IMPRESSION: 1. Changes of chronic medical renal disease. 2. Scattered bilateral renal cysts, largest on the right measuring 2.4 cm and on the left measuring 7 mm. 3. No hydronephrosis. 4. Trabeculated appearance to the bladder suggesting bladder wall hypertrophy and possible chronic bl adder outlet obstruction. Clinically correlate.
== END | disposition home or self-care (01) ==
LOC: RADUSWWP 12:07
PROVIDERS: ATTEND Internal Medicine Nephrology
DX: N28.1 Cyst of kidney, acquired (principal); N18.32 Chronic kidney disease, stage 3b; N32.89 Other specified disorders of bladder
CPT/HCPCS: 76770

== ENCOUNTER → 2022-07-14 | Outpatient (CLI) | payer OTHER ==
--- NOTE | 2022-07-14 09:30 | CTL ---
EXAMINATION TYPE: CT Low Dose Lung DATE OF EXAM ORDERED: 07/14/2022 HISTORY: . Lung cancer screening CT DLP: 81.[address] CTDI: 2.3 mGy Automated exposure control for dose reduction was used. SCREENING VISIT: COMPARISON: None TECHNIQUE: Low dose computed tomography scan was performed through the chest at 1 mm thick sections a nd reconstructed images in multiple planes at 1 mm and [address] DIAGNOSTIC QUALITY: Satisfactory FINDINGS: Biapical pleural thickening. There is a nodule left upper lobe measuring 8 mm along the major fissure . There are sub-5 mm subpleural nodules noted. 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 No focal pneumonia. Central and basilar bronchiectasi s noted. Coronary artery calcifications are seen and is atherosclerotic change aorta. Heart size normal. Hyper trophic degenerative changes of the spine no pathologic adenopathy identified. Underlying emphysemato us changes seen. No pleural or parenchymal calcifications. Small hiatal hernia. Localized area of pleural thickening s een within the right lower lobe posteriorly. IMPRESSION: 1. 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 2. There is a 8 mm nodule along the major fissure left upper lobe. Additional sub-5 mm subpleural nod ule seen. 3. Dense coronary artery calcification. 4. Basilar and central bronchiectasis CT LUNG RAD AND CT CHEST RECOMMENDATION: Lung-Rad 3 Probably Benign: 6 month follow-up LDCT.
== END | disposition home or self-care (01) ==
LOC: RADCTMAIN 08:31
DX: J44.9 Chronic obstructive pulmonary disease, unspecified (principal); R91.8 Other nonspecific abnormal finding of lung field; Z87.891 Personal history of nicotine dependence
CPT/HCPCS: 71271

== ENCOUNTER → 2022-07-27 | Outpatient (CLI) | payer OTHER ==
--- NOTE | 2022-07-27 13:39 | US ---
EXAMINATION TYPE: US kidneys/renal and bladder DATE OF EXAM: 07/27/2022 COMPARISON: Renal ultrasound 02/17/2022. CLINICAL HISTORY: N18.32 ckd stage 3b. CKD, no symptoms EXAM MEASUREMENTS: Right Kidney: 9.8 x 4.4 x 4.7 cm Left Kidney: 9.6 x 3.2 x 4.8 cm Right Kidney: 1.8 x 2.1 x 1.8 cm complex cyst redemonstrated. Mild cortical thinning with loss of cor tical medullary differentiation. No shadowing calculi. Left Kidney: No hydronephrosis or masses seen . Mild cortical thinning with loss of cortical medulla ry differentiation. No shadowing calculi. Bladder: wnl Bilateral Jets seen: Yes IMPRESSION: 1. No obstructive uropathy or shadowing renal calculi. 2. Stable right renal complex cyst. 3. Findings of chronic medical renal disease.
== END | disposition home or self-care (01) ==
LOC: RADUSWWP 11:43
PROVIDERS: ATTEND Internal Medicine
DX: N18.32 Chronic kidney disease, stage 3b (principal); N28.1 Cyst of kidney, acquired
CPT/HCPCS: 76770

== ENCOUNTER 2022-09-13 11:30 | Inpatient (IN) | payer OTHER, MEDICARE ==
--- NOTE | 2022-09-13 12:08 | ED ---
General Adult HPI - General Chief complaint: Fall Stated complaint: Fall Time Seen by Provider: 09/13/22 11:32 Source: patient Mode of arrival: EMS Limitations: no limitations - History of Present Illness Initial comments: Dictation was produced using [employer] dictation software. please excuse any grammatical, word or spelling errors. Chief Complaint: 87-year-old male presents emergency Department after being found down History of Present Illness: Patient is a 7-year-old male who lives at home by himself. Patient was found down at home. Patient allegedly tripped on a rubber mat. Patient is not the best historian. He lives by himself. Family spoke with him 2 days ago and he seemed fine. Family went to go check on him today after not hearing from him yesterday. They found him on the ground. Patient complains of left knee pain. No other complaints at this time. The ROS documented in this emergency department record has been reviewed and confirmed by me. Those systems with pertinent positive or negative responses h ave been documented in the HPI. All other systems are other negative and/or noncontributory. PHYSICAL EXAM: General Impression: Alert and oriented x3, not in acute distress HEENT: Abrasion to the top of the head, extra-ocular movements intact, pupils equal and reactive to light bilaterally, mucous membranes moist. Cardiovascular: Heart regular rate and rhythm Chest: Able to complete full sentences, no retractions, no tachypnea Abdomen: abdomen soft, non-tender, non-distended, no organomegaly Musculoskeletal: Pulses present and equal in all extremities, no peripheral edema Motor: no focal deficits noted Neurological: CN II-XII grossly intact, no focal motor or sensory deficits noted Skin: Intact with no visualized rashes Psych: Normal affect and mood ED course: 87-year-old male presents emergency department after being found the ground. Some clear palpation was on the ground for. There is concern of rhabdomyolysis along with traumatic injury. Nothing obvious on physical examination. Vital signs upon arrival are within acceptable limits. Nursing notes and chart review was performed Computed tomography scan head and C-spine shows no acute processes. A 6 and pelvis x-ray are unremarkable. X-rays also negative. Laboratory evaluation obtained. CBC unremarkable. Metabolic panel within acceptable limits. CK is 23,693 suggesting rhabdomyolysis. Troponin 0.091 with secondary to muscle damage. Patient admitted to [facility] with consultation to nephrology. My EKG interpretation: Ventricular rate 86, sinus rhythm,. 177, QS 111, QTc 4:30. No GA prolongation, no QTC prolongation, no ST or T-wave changes noted. . Overall, this EKG is unremarkable Critical Care: yes Critical Care time: 33 minutes - Related Data Home Medications Medication Instructions Recorded Confirmed Albuterol Nebulized [Ventolin 1.25 mg INHALATION Q6H PRN 12/19/21 12/23/21 Nebulized] Ascorbic Acid [Vitamin C] 500 mg PO DAILY 12/19/21 12/23/21 Atorvastatin Calcium [Lipitor] 20 mg PO DAILY 12/19/21 12/23/21 Budesonide-Formot 160-4.5 Mcg 2 puff INHALATION BID 12/19/21 12/23/21 [Symbicort 160-4.5 Mcg Inhaler] Bumetanide 0.5 mg PO DAILY 12/19/21 12/23/21 Cholecalciferol [Vitamin D3 (25 25 mcg PO DAILY 12/19/21 12/23/21 Mcg = 1000 Iu)] Cyanocobalamin [Vitamin B-12] 500 mcg PO DAILY 12/19/21 12/23/21 Fluticasone Propion/Salmeterol 1 inhalation PO BID 12/19/21 12/23/21 [Fluticasone-Salmeterol 250-50] Ginkgo Biloba Milfay Extract [Ginkgo] 60 mg PO DAILY 12/19/21 12/19/21 Lutein 10 mg PO DAILY 12/19/21 12/23/21 Magnesium Oxide [Mag-Ox] 500 mg PO DAILY 12/19/21 12/23/21 Montelukast Sodium [Singulair] 10 mg PO QAM 12/19/21 12/23/21 Multivitamins, Thera [Multivitamin 1 tab PO DAILY 12/19/21 12/19/21 (formulary)] Pyridoxine HCl (Vitamin B6) 100 mg PO DAILY 12/19/21 12/23/21 [Vitamin B-6] Tiotropium 18 Mcg/Puff [Spiriva] 1 puff INHALATION DAILY 12/19/21 12/23/21 Vit C/E/Zn/Coppr/Lutein/Zeaxan 1 each PO BID 12/19/21 12/19/21 [Preservision Areds 2 Softgel] Zinc Acetate [Wilzin] 50 mg PO DAILY 12/19/21 12/23/21 amLODIPine BESYLATE 5 mg PO QAM 12/19/21 12/23/21 calcitrioL [Calcitriol] 0.25 mcg PO DAILY 12/19/21 12/23/21 Previous Rx's Medication Instructions Recorded Apixaban [Eliquis] 2.5 mg PO BID #60 tab 12/24/21 Docusate [Colace] 100 mg PO DAILY #30 capsule 12/24/21 HYDROcodone/APAP 5-325MG [Henderson 1 tab PO Q6HR PRN #36 tab 12/24/21 5-325] Allergies Allergy/AdvReac Type Severity Reaction Status Date / Time No Known Allergies Allergy Verified 09/13/22 11:42 Review of Systems ROS Statement: Those systems with pertinent positive or pertinent negative responses have been documented in the HPI. ROS Other: All systems not noted in ROS Statement are negative. Past Medical History Past Medical History: Cancer, COPD, Hyperlipidemia, Hypertension, Renal Disease Additional Past Medical History / Comment(s): Hx skin cancer, hx prostate cancer 15-20 yrs ago. 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 Past Anesthesia/Blood Transfusion Reactions: No Reported Reaction Past Psychological History: No Psychological Hx Reported Smoking Status: Former smoker Past Alcohol Use History: None Reported Past Drug Use History: None Reported - Past Family History Mother Family Medical History: No Reported History General Exam Limitations: no limitations Course Vital Signs 09/13/22 09/13/22 09/13/22 11:36 13:18 14:02 Temperature 97.8 F Pulse Rate 93 93 96 Respiratory 18 18 18 Rate Blood Pressure 186/113 167/73 163/93 O2 Sat by Pulse 95 95 95 Oximetry Medical Decision Making - Lab Data Result diagrams: 09/13/22 11:58 09/13/22 11:58 Lab Results 09/13/22 09/13/22 09/13/22 Range/Units 11:58 11:58 11:58 WBC 8.3 (3.8-10.6) k/uL RBC 4.62 (4.30-5.90) m/uL Hgb 15.5 (13.0-17.5) gm/dL Hct 43.7 (39.0-53.0) % MCV 94.7 (80.0-100.0) fL MCH 33.5 (25.0-35.0) pg MCHC 35.3 (31.0-37.0) g/dL RDW 12.4 (11.5-15.5) % Plt Count 249 (150-450) k/uL MPV 8.4 Neutrophils % (Manual) 77 % Band Neuts % (Manual) 8 % Lymphocytes % (Manual) 8 % Monocytes % (Manual) 7 % Neutrophils # (Manual) 7.00 (1.3-7.7) k/uL Lymphocytes # (Manual) 0.66 L (1.0-4.8) k/uL Monocytes # (Manual) 0.58 (0-1.0) k/uL Nucleated RBCs 0 (0-0) /100 WBC Manual Slide Review Performed RBC Morphology Normal PT 10.3 (9.0-12.0) sec INR 1.0 (<1.2) APTT 22.0 (22.0-30.0) sec Sodium 145 (137-145) mmol/L Potassium 3.8 (3.5-5.1) mmol/L Chloride 111 H (98-107) mmol/L Carbon Dioxide 23 (22-30) mmol/L Anion Gap 11 mmol/L BUN 62 H (9-20) mg/dL Creatinine 1.72 H (0.66-1.25) mg/dL Est GFR (CKD-EPI)AfAm 41 (>60 ml/min/1.73 sqM) Est GFR (CKD-EPI)NonAf 35 (>60 ml/min/1.73 sqM) Glucose 133 H (74-99) mg/dL Plasma Lactic Acid Jose Alberto (0.7-2.0) mmol/L Calcium 8.4 (8.4-10.2) mg/dL Magnesium 2.6 H (1.6-2.3) mg/dL Total Bilirubin 1.0 (0.2-1.3) mg/dL AST 752 H (17-59) U/L ALT 269 H (4-49) U/L Alkaline Phosphatase 67 (38-126) U/L Creatine Kinase 26479 H* (55-170) U/L Troponin I (0.000-0.034) ng/mL Total Protein 7.0 (6.3-8.2) g/dL Albumin 3.9 (3.5-5.0) g/dL Lipase 25 (23-300) U/L 09/13/22 09/13/22 Range/Units 11:58 11:58 WBC (3.8-10.6) k/uL RBC (4.30-5.90) m/uL Hgb (13.0-17.5) gm/dL Hct (39.0-53.0) % MCV (80.0-100.0) fL MCH (25.0-35.0) pg MCHC (31.0-37.0) g/dL RDW (11.5-15.5) % Plt Count (150-450) k/uL MPV Neutrophils % (Manual) % Band Neuts % (Manual) % Lymphocytes % (Manual) % Monocytes % (Manual) % Neutrophils # (Manual) (1.3-7.7) k/uL Lymphocytes # (Manual) (1.0-4.8) k/uL Monocytes # (Manual) (0-1.0) k/uL Nucleated RBCs (0-0) /100 WBC Manual Slide Review RBC Morphology PT (9.0-12.0) sec INR (<1.2) APTT (22.0-30.0) sec Sodium (137-145) mmol/L Potassium (3.5-5.1) mmol/L Chloride (98-107) mmol/L Carbon Dioxide (22-30) mmol/L Anion Gap mmol/L BUN (9-20) mg/dL Creatinine (0.66-1.25) mg/dL Est GFR (CKD-EPI)AfAm (>60 ml/min/1.73 sqM) Est GFR (CKD-EPI)NonAf (>60 ml/min/1.73 sqM) Glucose (74-99) mg/dL Plasma Lactic Acid Jose Alberto 1.2 (0.7-2.0) mmol/L Calcium (8.4-10.2) mg/dL Magnesium (1.6-2.3) mg/dL Total Bilirubin (0.2-1.3) mg/dL AST (17-59) U/L ALT (4-49) U/L Alkaline Phosphatase (38-126) U/L Creatine Kinase (55-170) U/L Troponin I 0.091 H* (0.000-0.034) ng/mL Total Protein (6.3-8.2) g/dL Albumin (3.5-5.0) g/dL Lipase (23-300) U/L Disposition Clinical Impression: Rhabdomyolysis Disposition: ADMITTED IP TO THIS [facility] Condition: Serious Referrals: None,Stated [REFERRING] - 1-2 days Decision Time: 15:09
[2022-09-13 12:17] LABS: Prothrombin Time 10.3 sec (9.0-12.0)
[2022-09-13 12:24] LABS: Albumin 3.9 g/dL (3.5-5.0); Calcium 8.4 mg/dL (8.4-10.2); Magnesium 2.6 mg/dL (1.6-2.3); Potassium 3.8 mmol/L (3.5-5.1)
[2022-09-13 12:35] LABS: HCT 43.7 % (39.0-53.0); HGB 15.5 gm/dL (13.0-17.5); MCH 33.5 pg (25.0-35.0); MCHC 35.3 g/dL (31.0-37.0); MCV 94.7 fL (80.0-100.0); Mean Platelet Volume 8.4; Platelet Count 249 k/uL (150-450); RBC 4.62 m/uL (4.30-5.90); RDW 12.4 % (11.5-15.5); WBC 8.3 k/uL (3.8-10.6)
--- NOTE | 2022-09-13 12:44 | XR ---
EXAMINATION TYPE: XR knee 4V LT DATE OF EXAM: 09/13/2022 12:39 PM INDICATION: Patient age:Male; 87 years old; Reason for study: fall; COMPARISON: None. TECHNIQUE: The Left knee(s) was examined in Frontal, lateral and oblique projections. FINDINGS: Total knee arthroplasty changes with hardware in apparent position and intact. A fabella is present. No evidence of any acute osseous pathology, joint space narrowing, soft tissue swelling, or joint effusion is noted. Prepatellar soft tissue edema noted. IMPRESSION: 1. No acute osseous pathology. 2. Total knee arthroplasty changes. In appropriate position. 3. Prepatellar soft tissue edema.
--- NOTE | 2022-09-13 12:45 | XR ---
EXAMINATION TYPE: XR pelvis AP view DATE OF EXAM: 09/13/2022 12:39 PM INDICATION: Patient age:Male; 87 years old; Reason for study: fall; COMPARISON: None TECHNIQUE: The pelvis was examined in a single projection. FINDINGS: Multiple surgical clips are present. Sclerosis of the arterial vasculature. Degeneration ch anges of the hips, sacroiliac joints and lower spine. There is no evidence of fracture or dislocation . There is no soft tissue abnormality. IMPRESSION: No acute osseous pathology.
--- NOTE | 2022-09-13 12:47 | XR ---
EXAMINATION TYPE: XR chest 2V DATE OF EXAM: 09/13/2022 12:39 PM COMPARISON: Chest radiographs from none TECHNIQUE: XR chest 2V Frontal and lateral views of the chest. CLINICAL INDICATION:Male, 87 years old with history of fall; FINDINGS: Lungs/Pleura: Increased interstitial lung markings There is flattening of the diaphragm with increase d lucency of the lungs. No evidence of pneumothorax, pleural effusion or focal consolidation. Pulmonary vascularity: Unremarkable. Heart/mediastinum: Cardiomediastinal silhouette is unremarkable. Musculoskeletal: Degenerative changes of the shoulder joints. IMPRESSION: 1. No acute cardiopulmonary disease process. 2. COPD changes.
--- NOTE | 2022-09-13 12:52 | CT ---
EXAMINATION TYPE: CT brain cspine wo con CT DLP: 1360.5 mGycm, Automated exposure control for dose reduction was used. DATE OF EXAM: 09/13/2022 12:40 PM COMPARISON: None. CLINICAL INDICATION:Male, 87 years old with history of fall; Fall TECHNIQUE: Brain: Multiple axial CT images of the brain were obtained without IV contrast. Cspine: Axial CT images from the skull base to the inferior aspect of T2 we obtained without intraven ous contrast. Coronal and sagittal reformatted images were also reviewed. FINDINGS: Brain: Extra-axial spaces: No abnormal extra-axial fluid collections. Ventricular system: Dilatation in proportion to cerebral atrophy. Cerebral parenchyma: Cerebral atrophy. No acute intraparenchymal hemorrhage or mass effect. The galindo -white junction is well differentiated. Scattered hypoattenuating areas are seen within the white mat ter. Cerebellum: Unremarkable. Mass effect: No evidence of midline shift. Intracranial vasculature: Atherosclerotic calcifications of the intracranial vessels. Soft tissues: Normal. Calvarium/osseous structures: No depressed skull fracture. Paranasal sinuses and mastoid air cells: Clear. Visualized orbits: Senile calcific scleral plaques are present. Cervical spine: Fracture: None. Osseous structures: Multilevel degenerative disc disease changes with endplate spurring and disc oste ophyte complex's. Vertebral alignment: Within normal limits. Spinal canal/Neural Foramina: No evidence of significant spinal canal narrowing. No evidence for sign ificant neural foraminal stenosis. Neck soft tissues: Prevertebral soft tissues are within normal limits. Other: The airway is patent. The lung apices are clear. Atherosclerosis of the arterial vasculature a t the carotid bifurcations. IMPRESSION: 1. No acute intracranial process. 2. Nonspecific white matter changes, likely secondary to chronic small vessel ischemic disease. 3. No evidence of cervical spine fracture. 4. Moderate multilevel degenerative disc disease.
[2022-09-13] MEDS ORDERED: SODIUM CHLORIDE 0.9% 1,000 ML IV STA ×2 (13:10→14:22)
[2022-09-13] MEDS ORDERED: NALOXONE 0.4 MG/ML 1 ML VIAL IV PRN (14:26)
[2022-09-13] MEDS ORDERED: ONDANSETRON 4 MG/2 ML VIAL IVP PRN (14:26)
[2022-09-13 14:36] LABS: Band Neutrophils % 8 %; Lymphocytes # (M) 0.66 k/uL (1.0-4.8); Monocytes # (M) 0.58 k/uL (0-1.0); Neutrophils % (M) 77 %; Nucleated Red Blood Cells 0 /100 WBC (0-0); Total Cells Counted 100
[2022-09-13 14:39] LABS: RBC Morphology Normal
[2022-09-13 16:30] LABS: Amorphous Sediment,Urine Rare /hpf; Appearance,Urine Cloudy (Clear); Bilirubin,Urine Negative (Negative); Blood,Urine Large (Negative); Color,Urine Yellow; Glucose,Urine (UA) Negative (Negative); Ketones,Urine 2+ (Negative); Leukocyte Esterase,Urine Negative (Negative); Mucus,Urine Occasional /hpf; Nitrite,Urine Negative (Negative); PH, Urine 5.5 (5.0-8.0); Protein,Urine 2+ (Negative); RBC,Urine <1 /hpf (0-5); Squamous Epithelial Cell,Urine <1 /hpf (0-4); Urobilinogen,Urine <2.0 mg/dL (<2.0); WBC,Urine 1 /hpf (0-5)
[2022-09-13] MEDS: SODIUM CHLORIDE 0.9% 1,000 ML IV SCH ×3 (16:31→23:20)
[2022-09-13] MEDS: IPRATROPIUM-ALBUTEROL 3 ML NEB INHALATION SCH (20:04)
[2022-09-13] MEDS: PRAZOSIN 1 MG CAP PO SCH (21:16)
[2022-09-13] MEDS: MONTELUKAST 10 MG TAB PO SCH (21:16)
[2022-09-13] MEDS: VIT A,C & E-LUTEIN-MINERALS 1 EACH TAB PO SCH (21:16)
[2022-09-13] MEDS: MAGNESIUM OXIDE 400 MG TAB PO SCH (21:18)
--- NOTE | 2022-09-14 01:20 | HP ---
HISTORY AND PHYSICAL CHIEF COMPLAINT: Fall and rhabdomyolysis. HISTORY OF PRESENT ILLNESS: This is an 87-year-old gentleman with a past medical history of multiple medical problems including COPD, hypertension, hyperlipidemia, was living by himself. The patient apparently fell down and was lying approximately 10 hours. The patient is extremely weak and tired and tremulous. Patient came to [facility]. Patient had features of rhabdomyolysis and CK was elevated up to 23,693. There is no history of any fever, rigors, chills at this time. PAST MEDICAL HISTORY: COPD, hypertension, hyperlipidemia. Rest of the history and rest of the chart is reviewed. HOME MEDICATIONS: Reviewed include calcitriol. Dose and rest of medications are noted. They are not confirmed yet. ALLERGIES: None. FAMILY HISTORY: No history of heart disease or strokes in the family. SOCIAL HISTORY: Previous history of smoking. REVIEW OF SYSTEMS: Fourteen-point review of systems negative except as mentioned earlier. PHYSICAL EXAMINATION: Pulse 96, blood pressure 163/93, respirations 18. HEENT: Conjunctivae normal. NECK: : No jugular venous distention. CARDIOVASCULAR: S1, S2. RESPIRATION: A few scattered rhonchi and crackles. ABDOMEN: Soft, nontender. LEGS: No edema. No cyanosis, diffusely weak. SKIN: Multiple bruises present. JOINTS: No active deforming arthropathy. LABS: Reviewed. ASSESSMENT: 1. Fall and acute rhabdomyolysis. 2. Weakness. 3. Elevated liver function tests. 4. Gait dysfunction. 5. Chronic obstructive pulmonary disease. 6. Hypertension. 7. Hyperlipidemia. RECOMMENDATIONS AND DISCUSSION: This is an 87-year-old gentleman, who presented with multiple complex medical issues, we will monitor the patient closely. I would recommend IV fluids. Monitor creatinine closely. Symptomatic treatment. Avoid nephrotoxic medications. PT/OT evaluation, possible ECF rehab. Prognosis guarded. Discussed with the family. general utility worker and Case Management team to evaluate the home situation. Further recommendations to follow. See orders for details. MMODL / IJN: [id number] /
[2022-09-14] MEDS: SODIUM CHLORIDE 0.9% 1,000 ML IV SCH ×2 (06:25→17:39)
[2022-09-14] MEDS: IPRATROPIUM-ALBUTEROL 3 ML NEB INHALATION SCH ×5 (07:49→20:21)
[2022-09-14] MEDS: VIT A,C & E-LUTEIN-MINERALS 1 EACH TAB PO SCH ×2 (08:07→20:01)
--- NOTE | 2022-09-14 08:31 | P.NPCON ---
History of Present Illness - Reason for Consult acute renal failure, chronic renal failure - History of Present Illness Reason for consultation: Acute kidney injury on chronic kidney disease History of present illness: Patient is a 87-year-old male seen in renal consultation for acute kidney injury on chronic kidney disease. Patient has chronic kidney disease stage IIIB with baseline creatinine near 1.5 secondary to nephrosclerosis. Patient was brought to the hospital after he was found down at home by family members. He fell after tripping on a rubber mat. Patient lives by himself. Family last spoke to him 2 days prior to admission. He is currently resting in bed. Patient is not a reliable historian at this time. Patient's creatinine on admission yesterday was 1.72. He is currently receiving normal saline at 75 mL an hour. He did receive 1 L bolus of normal saline on admission. He does take Bumex at home which is currently held. Patient was noted to be in rhabdomyolysis with CK level of 23,693 on admission. Chest x-ray showed no acute cardiopulmonary process. Patient has been voiding. Does not have a Stafford catheter. Blood pressure is stable. I don't see any NSAIDs and his home medication list. No acute fracture noted. Vital signs are stable. General: Resting in bed. No acute distress. HEENT: Head exam is unremarkable. LUNGS: Breath sounds decreased. HEART: Rate and Rhythm are regular. ABDOMEN: Soft, no distention. EXTREMITITES: No edema. Past Medical History Past Medical History: Cancer, COPD, Hyperlipidemia, Hypertension, Renal Disease Additional Past Medical History / Comment(s): Hx skin cancer, hx prostate cancer 15-20 yrs ago. 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 Past Drug Use History: None Reported - Past Family History Mother Family Medical History: No Reported History Medications and Allergies Home Medications Medication Instructions Recorded Confirmed Type Atorvastatin Calcium [Lipitor] 20 mg PO DAILY 12/19/21 09/13/22 History Bumetanide 0.5 mg PO DAILY 12/19/21 09/13/22 History Cholecalciferol [Vitamin D3 (25 25 mcg PO DAILY 12/19/21 09/13/22 History Mcg = 1000 Iu)] Fluticasone Propion/Salmeterol 1 puff INHALATION RT-BID 12/19/21 09/13/22 History [Fluticasone-Salmeterol 250-50] Ginkgo Biloba Hoyt Extract [Ginkgo] 60 mg PO DAILY 12/19/21 09/13/22 History Magnesium Oxide [Mag-Ox] 500 mg PO HS 12/19/21 09/13/22 History Montelukast Sodium [Singulair] 10 mg PO HS 12/19/21 09/13/22 History Tiotropium 18 Mcg/Puff [Spiriva] 1 puff INHALATION RT-DAILY 12/19/21 09/13/22 History Vit C/E/Zn/Coppr/Lutein/Zeaxan 1 cap PO BID 12/19/21 09/13/22 History [Preservision Areds 2 Softgel] calcitrioL [Calcitriol] 0.25 mcg PO DAILY 12/19/21 09/13/22 History Albuterol Nebulized [Ventolin 2.5 mg INHALATION RT-Q6H PRN 09/13/22 09/13/22 Hi story Nebulized] Ascorbic Acid [Vitamin C with Linda 1,000 mg PO DAILY 09/13/22 09/13/22 History Hips] Multivit-Min/FA/Lycopen/Lutein 1 tab PO DAILY 09/13/22 09/13/22 History [Centrum Silver Men Tablet] Potassium Gluconate [Potassium 99 mg PO DAILY 09/13/22 09/13/22 History Gluconate ER] Prazosin HCl 2 mg PO HS 09/13/22 09/13/22 History amLODIPine [Norvasc] 5 mg PO DAILY 09/13/22 09/13/22 History Allergies Allergy/AdvReac Type Severity Reaction Status Date / Time carbamide peroxide Allergy Rash/Hives Verified 09/13/22 16:08 lisinopril AdvReac Cough Verified 09/13/22 16:08 Physical Exam Vitals: Vital Signs Temp Pulse Pulse Resp BP BP Pulse Ox 09/14/22 07:59 92 09/14/22 07:49 92 09/14/22 03:48 98.4 F 104 H 16 147/63 92 L 09/13/22 20:30 20 09/13/22 20:17 92 09/13/22 20:05 92 09/13/22 20:00 98.6 F 92 16 169/72 92 L 09/13/22 17:33 98.5 F 94 16 168/76 93 L 09/13/22 16:35 98.5 F 09/13/22 16:19 94 18 189/88 97 09/13/22 14:02 96 18 163/93 95 09/13/22 13:18 93 18 167/73 95 09/13/22 11:36 97.8 F 93 18 186/113 95 Intake and Output 09/13/22 09/14/22 09/14/22 22:59 06:59 14:59 Intake Total 1200 Balance 1200 Intake: Intake, IV Titration 900 Amount Sodium Chloride 0.9% 1, 900 000 ml @ 75 mls/hr IV . [id number] [facility] Rx#:[id number] Oral 300 Other: Voiding Method Bedside Commode # Voids 1 1 Weight 79.379 kg Results - Lab Results Most recent lab results Calcium 8.4 mg/dL (8.4-10.2) 09/13/22 11:58 Magnesium 2.6 mg/dL (1.6-2.3) H 09/13/22 11:58 09/13/22 11:58 09/13/22 11:58 Assessment and Plan Plan: Assessment: 1. Acute kidney injury secondary to ATN secondary to rhabdomyolysis. Creatinine 1.72 yesterday. Kidney ultrasound from July 2022 showed no evidence of hydronephrosis. 2. Status post fall. No acute fracture noted. 3. 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 4. Hypertension with chronic kidney disease. Stable. Plan: Maintain IV fluids. Continue to hold diuretics. Follow-up morning labs. Monitor CK levels. Follow-up echocardiogram. Check bladder scan to rule out urinary retention. Avoid nephrotoxins. Thank you for the consultation. I will continue to follow the patient with you during his hospital stay.
[2022-09-14 08:55] LABS: HCT 37.6 % (39.6-50.0); HGB 12.7 g/dL (13.0-17.0); MCH 33.2 pg (27.0-32.0); MCHC 33.8 g/dL (32.0-37.0); MCV 98.2 fL (80.0-97.0); Mean Platelet Volume 10.3 fL (9.5-12.2); NRBC Per 100 WBC 0 /100 WBCS (0.0-0.0); Platelet Count 223 X 10*3/uL (140-440); RBC 3.83 X 10*6/uL (4.40-5.60); RDW 12.8 % (11.5-14.5); WBC 8.31 X 10*3/uL (4.50-10.00)
[2022-09-14 09:14] LABS: African American GFR (CKD) 52.4 (60.0-200.0); Albumin 3.4 g/dL (3.8-4.9); Albumin/Globulin Ratio 1.42 (1.60-3.17); Anion Gap 12.9 mmol/L (10.00-18.00); BUN/Creat Ratio 34.57 Ratio (12.00-20.00); Blood Urea Nitrogen 48.4 mg/dL (9.0-27.0); Calcium 8.4 mg/dL (8.7-10.3); Carbon Dioxide 21.1 mmol/L (20.0-27.5); Globulin 2.4 g/dL (1.6-3.3); Non-African American GFR(CKD) 45.2 (60.0-200.0); Potassium 3.7 mmol/L (3.5-5.5); Total Bilirubin 0.6 mg/dL (0.30-1.20); Total Protein 5.8 g/dL (6.2-8.2)
[2022-09-14 10:23] LABS: Basophils # (A) 0.03 X 10*3/uL (0.00-0.10); Basophils % (A) 0.4 %; Eosinophils # (A) 0.02 X 10*3/uL (0.04-0.35); Eosinophils % (A) 0.2 %; Immature Grans, Automated 0.4 %; Lymphocytes # (A) 1.37 X 10*3/uL (0.90-5.00); Lymphocytes % (A) 16.5 %; Monocytes # (A) 0.66 X 10*3/uL (0.20-1.00); Monocytes % (A) 7.9 %; Neutrophils % (A) 74.6 %; RBC Morphology NORMAL
[2022-09-14] MEDS ORDERED: ALBUTEROL NEBULIZED 2.5 MG/3 ML INHALATION PRN (11:46)
--- NOTE | 2022-09-14 11:48 | P.HPIM ---
History of Present Illness This is a pleasant 87 years old male with multiple medical problems as below. Presents because he was found on the floor for 24 hours when the family felt to get hold of him. He'll patient states that he got up from his bed and he felt very weak and fell on the ground, and then he got up again filled 1 more time and he was in the floor for 24 hours before family could find him. Patient somewhat tachypneic and is complaining of from cough with little yellow phlegm. 2 days ago his complaint of from severe left sided chest pain that lasted for 3 hours, currently he denies any chest pain. He denies any headache or dizziness or weakness or numbness. No urgency or dysuria. No abdominal pain or vomiting or diarrhea. as per family patient has stage IV kidney disease and he follow-up with Dr. Woods he has an outside clinic Pt presents to ED today for complaint of fall on . The pt was found today by family on the floor. PT has abasion noted to forehead. Pt denie LOC or thinners. Pt denies injury from fall. Following without losing consciousness Vitas looks stable Has unremarkable CBC and INR Creatinine is elevated at 1.7, unknown baseline Elevated liver enzymes AST 752 and a 50-69 with normal bilirubin Creatinine kinase is elevated 44000 Elevated troponin 0.09 Lipase normal urinalysis showing 2+ protein and large blood and bone urine RBC less than 1 CT of the head and neck: No acute process, no fracture or dislocation Chest x-ray: No acute process Pelvic x-ray: No acute process Left knee process also no acute process but there is pre-patellar soft tissue edema EKG showing sinus rhythm at 89 with QTC 4:30 with moderate interventricular conduction delay In the emergency room patient received several doses of normal saline boluses Admitted with certified fire investigator team consult Review of Systems Review of systems CONSTITUTIONAL: No fever, no malaise, no fatigue. HEENT: No recent visual problems or hearing problems. Denied any sore throat. CARDIOVASCULAR: No orthopnea, PND, no palpitations, no syncope. PULMONARY: No shortness of breath, no cough, no hemoptysis. GASTROINTESTINAL: No diarrhea, no nausea, no vomiting, no abdominal pain. Normoactive bowel sounds. NEUROLOGICAL: No headaches, no weakness, no numbness. HEMATOLOGICAL: Denies any bleeding or petechiae. GENITOURINARY: Denies any burning micturition, frequency, or urgency. MUSCULOSKELETAL/RHEUMATOLOGICAL: Denies any joint pain, swelling, or any muscle pain. ENDOCRINE: Denies any polyuria or polydipsia. Past Medical History Past Medical History: Cancer, COPD, Hyperlipidemia, Hypertension, Renal Disease Additional Past Medical History / Comment(s): Hx skin cancer, hx prostate cancer 15-20 yrs ago. 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 Past Drug Use History: None Reported - Past Family History Mother Family Medical History: No Reported History Medications and Allergies Home Medications Medication Instructions Recorded Confirmed Type Atorvastatin Calcium [Lipitor] 20 mg PO DAILY 12/19/21 09/13/22 History Bumetanide 0.5 mg PO DAILY 12/19/21 09/13/22 History Cholecalciferol [Vitamin D3 (25 25 mcg PO DAILY 12/19/21 09/13/22 History Mcg = 1000 Iu)] Fluticasone Propion/Salmeterol 1 puff INHALATION RT-BID 12/19/21 09/13/22 History [Fluticasone-Salmeterol 250-50] Ginkgo Biloba Verlot Extract [Ginkgo] 60 mg PO DAILY 12/19/21 09/13/22 History Magnesium Oxide [Mag-Ox] 500 mg PO HS 12/19/21 09/13/22 History Montelukast Sodium [Singulair] 10 mg PO HS 12/19/21 09/13/22 History Tiotropium 18 Mcg/Puff [Spiriva] 1 puff INHALATION RT-DAILY 12/19/21 09/13/22 History Vit C/E/Zn/Coppr/Lutein/Zeaxan 1 cap PO BID 12/19/21 09/13/22 History [Preservision Areds 2 Softgel] calcitrioL [Calcitriol] 0.25 mcg PO DAILY 12/19/21 09/13/22 History Albuterol Nebulized [Ventolin 2.5 mg INHALATION RT-Q6H PRN 09/13/22 09/13/22 History Nebulized] Ascorbic Acid [Vitamin C with Linda 1,000 mg PO DAILY 09/13/22 09/13/22 History Hips] Multivit-Min/FA/Lycopen/Lutein 1 tab PO DAILY 09/13/22 09/13/22 History [Centrum Silver Men Tablet] Potassium Gluconate [Potassium 99 mg PO DAILY 09/13/22 09/13/22 History Gluconate ER] Prazosin HCl 2 mg PO HS 09/13/22 09/13/22 History amLODIPine [Norvasc] 5 mg PO DAILY 09/13/22 09/13/22 History Allergies Allergy/AdvReac Type Severity Reaction Status Date / Time carbamide peroxide Allergy Rash/Hives Verified 09/13/22 16:08 lisinopril AdvReac Cough Verified 09/13/22 16:08 Physical Exam Vitals: Vital Signs Temp Pulse Pulse Resp BP BP Pulse Ox 09/14/22 11:19 98.3 F 85 16 137/65 94 L 09/14/22 07:59 92 09/14/22 07:49 92 09/14/22 03:48 98.4 F 104 H 16 147/63 92 L 09/13/22 20:30 20 09/13/22 20:17 92 09/13/22 20:05 92 09/13/22 20:00 98.6 F 92 16 169/72 92 L 09/13/22 17:33 98.5 F 94 16 168/76 93 L 09/13/22 16:35 98.5 F 09/13/22 16:19 94 18 189/88 97 09/13/22 14:02 96 18 163/93 95 09/13/22 13:18 93 18 167/73 95 Intake and Output 09/13/22 09/14/22 09/14/22 22:59 06:59 14:59 Intake Total 1200 Output Total 94 Balance 1200 -94 Intake: Intake, IV Titration 900 Amount Sodium Chloride 0.9% 1, 900 000 ml @ 75 mls/hr IV . [id number] [facility] Rx#:[id number] Oral 300 Output: Post Void Residual 94 Other: Voiding Method Bedside Commode # Voids 1 1 1 # Bowel Movements 1 Weight 79.379 kg -GENERAL: The patient is alert and oriented x3, not in any acute distress. Well developed, well nourished. Generally weak HEENT: Pupils are round and equally reacting to light. EOMI. No scleral icterus. No conjunctival pallor. Normocephalic, atraumatic. No pharyngeal erythema. No thyromegaly. CARDIOVASCULAR: S1 and S2 present. No murmurs, rubs, or gallops. PULMONARY: Chest is clear to auscultation, no wheezing or crackles. ABDOMEN: Soft, nontender, nondistended, normoactive bowel sounds. No palpable organomegaly. MUSCULOSKELETAL: No joint swelling or deformity. EXTREMITIES: No cyanosis, clubbing, or pedal edema. NEUROLOGICAL: Gross neurological examination did not reveal any focal deficits. -SKIN: No rashes. no petechiae. Abrasions of the forehead which looks right with no infection Results CBC & Chem 7: 09/14/22 05:12 09/14/22 05:12 Labs: Abnormal Lab Results - Last 24 Hours (Table) 09/13/22 09/13/22 09/13/22 Range/Units 11:58 11:58 11:58 RBC (4.40-5.60) X 10*6/uL Hgb (13.0-17.0) g/dL Hct (39.6-50.0) % MCV (80.0-97.0) fL MCH (27.0-32.0) pg Plt Count Comment Lymphocytes # (Manual) 0.66 L (1.0-4.8) k/uL Eosinophils # (0.04-0.35) X 10*3/uL Chloride 111 H (98-107) mmol/L BUN 62 H (9-20) mg/dL Creatinine 1.72 H (0.66-1.25) mg/dL Est GFR (CKD-EPI)AfAm (60.0-200.0) Est GFR (CKD-EPI)NonAf (60.0-200.0) BUN/Creatinine Ratio (12.00-20.00) Ratio Glucose 133 H (74-99) mg/dL Calcium (8.7-10.3) mg/dL Magnesium 2.6 H (1.6-2.3) mg/dL AST 752 H (17-59) U/L ALT 269 H (4-49) U/L Creatine Kinase 22672 H* (55-170) U/L Troponin I 0.091 H* (0.000-0.034) ng/mL Total Protein (6.2-8.2) g/dL Albumin (3.8-4.9) g/dL Albumin/Globulin Ratio (1.60-3.17) g/dL Urine Protein (Negative) Urine Ketones (Negative) Urine Blood (Negative) Amorphous Sediment (None) /hpf Urine Mucus (None) /hpf 09/13/22 09/14/22 09/14/22 Range/Units 16:20 05:12 05:12 RBC 3.83 L (4.40-5.60) X 10*6/uL Hgb 12.7 L (13.0-17.0) g/dL Hct 37.6 L (39.6-50.0) % MCV 98.2 H (80.0-97.0) fL MCH 33.2 H (27.0-32.0) pg Plt Count Comment DECREASED A Lymphocytes # (Manual) (1.0-4.8) k/uL Eosinophils # 0.02 L (0.04-0.35) X 10*3/uL Chloride (98-107) mmol/L BUN 48.4 H (9-20) mg/dL Creatinine (0.66-1.25) mg/dL Est GFR (CKD-EPI)AfAm 52.4 L (60.0-200.0) Est GFR (CKD-EPI)NonAf 45.2 L (60.0-200.0) BUN/Creatinine Ratio 34.57 H (12.00-20.00) Ratio Glucose 118 H (74-99) mg/dL Calcium 8.4 L (8.7-10.3) mg/dL Magnesium (1.6-2.3) mg/dL AST 451 H (17-59) U/L ALT 226 H (4-49) U/L Creatine Kinase 25931 H* (55-170) U/L Troponin I (0.000-0.034) ng/mL Total Protein 5.8 L (6.2-8.2) g/dL Albumin 3.4 L (3.8-4.9) g/dL Albumin/Globulin Ratio 1.42 L (1.60-3.17) g/dL Urine Protein 2+ H (Negative) Urine Ketones 2+ H (Negative) Urine Blood Large H (Negative) Amorphous Sediment Rare H (None) /hpf Urine Mucus Occasional H (None) /hpf 09/14/22 Range/Units 05:12 RBC (4.40-5.60) X 10*6/uL Hgb (13.0-17.0) g/dL Hct (39.6-50.0) % MCV (80.0-97.0) fL MCH (27.0-32.0) pg Plt Count Comment Lymphocytes # (Manual) (1.0-4.8) k/uL Eosinophils # (0.04-0.35) X 10*3/uL Chloride (98-107) mmol/L BUN (9-20) mg/dL Creatinine (0.66-1.25) mg/dL Est GFR (CKD-EPI)AfAm (60.0-200.0) Est GFR (CKD-EPI)NonAf (60.0-200.0) BUN/Creatinine Ratio (12.00-20.00) Ratio Glucose (74-99) mg/dL Calcium (8.7-10.3) mg/dL Magnesium (1.6-2.3) mg/dL AST (17-59) U/L ALT (4-49) U/L Creatine Kinase (55-170) U/L Troponin I 0.060 H* (0.000-0.034) ng/mL Total Protein (6.2-8.2) g/dL Albumin (3.8-4.9) g/dL Albumin/Globulin Ratio (1.60-3.17) g/dL Urine Protein (Negative) Urine Ketones (Negative) Urine Blood (Negative) Amorphous Sediment (None) /hpf Urine Mucus (None) /hpf Thrombosis Risk Factor Assmnt - Choose All That Apply Each Factor Represents 1 point: Abnormal pulmonary function (COPD) Other Risk Factors: Yes Each Risk Factor Represents 2 Points: Malignancy Each Risk Factor Represents 3 Points: Age 75 years or older Thrombosis Risk Factor Assessment Total Risk Factor Score: 6 Thrombosis Risk Factor Assessment Level: High Risk Assessment and Plan Assessment: rhabdomyolysis elevated tropoin , could be troponin leak from did not supply mismatch and kidney injury, rule out cardiac disease Elevated creatinine, unknown baseline suspicious for chronic kidney injury, stage III Transaminitis, related to rhabdomyolysis Hematuria (no RBC ) and proteinuria COPD Hyperlipidemia Hypertension Remote history of cancer 15-20 years ago Plan: Continue with intravenous hydration Follow-up kidney function and creatinine kinase Check a bladder scan Neck Khmer consult [employer] team consult Labs and medication were reviewed.. Continue same treatment. Continue with symptomatic treatment. Resume home medication. Monitor lytes and vitals. DVT and GI prophylaxis. Further recommendations as per clinical course of the patient DVT prophylaxis: Subcutaneous heparin GI Prophylaxis: Pepcid PT/OT: Pending Prognosis is guarded
[2022-09-14] MEDS: ACETAMINOPHEN TAB 325 MG TAB PO PRN (13:22)
--- NOTE | 2022-09-14 14:55 | CA ---
Transthoracic Echo Report Name: Dany Alcala Age: 87 Gender: M : 1935 Exam Date: 09/14/2022 11:40 Exam Location: [place] [facility] Ht (in): 70 Wt (lb): 175 Ordering Physician: Orlando Harris MD Attending/Referring Phys: [id number], Kimberly Hogshead Hand Mya Siegel RDCS Procedure CPT: Indications: Rule out heart disease Cardiac Hx: Technical Quality: Fair Contrast 1: Total Dose (mL): Contrast 2: Total Dose (mL): MEASUREMENTS (Male / Female) Normal Values 2D ECHO LV Diastolic Diameter PLAX 3.6 cm 4.2 - 5.9 / 3.9 - 5.3 cm LV Systolic Diameter PLAX 2.2 cm IVS Diastolic Thickness 1.6 cm 0.6 - 1.0 / 0.6 - 0.9 cm LVPW Diastolic Thickness 1.4 cm 0.6 - 1.0 / 0.6 - 0.9 cm LV Relative Wall Thickness 0.8 RV Internal Dim ED PLAX 3.2 cm LVOT Diameter 1.9 cm LA Volume 39.3 cm??? 18 - 58 / 22 - 52 cm??? M-MODE Aortic Root Diameter MM 2.8 cm LA Systolic Diameter MM 5.1 cm LA Ao Ratio MM 1.8 DOPPLER AV Peak Velocity 265.6 cm/s AV Peak Gradient 28.2 mmHg AV Mean Velocity 194.3 cm/s AV Mean Gradient 16.6 mmHg AV Velocity Time Integral 49.5 cm LVOT Peak Velocity 121.8 cm/s LVOT Peak Gradient 5.9 mmHg LVOT Velocity Time Integral 21.4 cm LVOT Stroke Volume 57.8 cm??? LVOT Stroke Volume Index 29.3 ml/m??? LVOT Cardiac Index 1888.7 cm???/min???m??? AV Area Cont Eq vti 1.2 cm??? AV Area Cont Eq pk 1.2 cm??? MV Peak Velocity 181.6 cm/s MV Peak Gradient 13.2 mmHg MV Mean Velocity 122.0 cm/s MV Mean Gradient 6.4 mmHg MV Velocity Time Integral 38.1 cm MV Area PHT 3.4 cm??? Mitral E Point Velocity 142.4 cm/s Mitral A Point Velocity 174.4 cm/s Mitral E to A Ratio 0.8 MV Deceleration Time 208.4 ms MV E' Velocity 6.1 cm/s Mitral E to MV E' Ratio 23.2 TR Peak Velocity 239.1 cm/s TR Peak Gradient 22.9 mmHg Right Ventricular Systolic Press 27.4 mmHg FINDINGS Left Ventricle Moderately increased left ventricular wall thickness. Normal left ventricular systolic function with no obvious regional wall motion abnormalities. Left ventricular ejection fraction is estimated at 55 %. Right Ventricle Normal right ventricular size and function. Right ventricular systolic pressure within normal limits. Right Atrium Normal right atrial size. Left Atrium Normal left atrial size. Mitral Valve Mitral valve thickened. Mild mitral stenosis. Mild mitral annular calcification. Trace mitral regurgitation. Aortic Valve No aortic valve stenosis or regurgitation. Diffuse thickening (sclerosis) of the aortic valve cusps without reduced excursion. Tricuspid Valve Structurally normal tricuspid valve. Mild tricuspid regurgitation. Pulmonic Valve Trace pulmonic regurgitation. Pericardium No pericardial effusion. Aorta Normal size aortic root and proximal ascending aorta. CONCLUSIONS Left ventricular hypertrophy with preserved systolic function Aortic sclerosis without stenosis, calcific aortic leaflets Previewed by: Dr. Javed Crawford MD (Electronically Signed) Final Date: 14 September 2022 14:54
[2022-09-14] MEDS: HEPARIN SODIUM,PORCINE/PF 5,000 UNIT/0.5 ML SYRINGE SQ SCH (19:55)
[2022-09-14] MEDS: MONTELUKAST 10 MG TAB PO SCH (20:00)
[2022-09-14] MEDS: PRAZOSIN 1 MG CAP PO SCH (20:00)
[2022-09-14] MEDS ORDERED: FAMOTIDINE 20 MG/2 ML VIAL IV SCH (21:00)
[2022-09-14] MEDS: MAGNESIUM OXIDE 400 MG TAB PO SCH (21:09)
[2022-09-15] MEDS: IPRATROPIUM-ALBUTEROL 3 ML NEB INHALATION SCH ×4 (07:44→20:40)
[2022-09-15] MEDS: VIT A,C & E-LUTEIN-MINERALS 1 EACH TAB PO SCH ×2 (08:34→22:08)
[2022-09-15] MEDS: ASCORBIC ACID 500 MG TAB PO SCH (08:34)
[2022-09-15] MEDS: CHOLECALCIFEROL 25 MCG (1000 IU) TABLET PO SCH (08:34)
[2022-09-15] MEDS: ATORVASTATIN 20 MG TAB PO SCH (08:34)
[2022-09-15] MEDS: amLODIPine 5 MG TAB PO SCH (08:34)
[2022-09-15] MEDS: HEPARIN SODIUM,PORCINE/PF 5,000 UNIT/0.5 ML SYRINGE SQ SCH ×2 (08:35→22:08)
[2022-09-15] MEDS ORDERED: BUMETANIDE 1 MG TAB PO SCH (09:00)
[2022-09-15 09:57] LABS: African American GFR (CKD) 63.1 (60.0-200.0); Anion Gap 12.4 mmol/L (10.00-18.00); BUN/Creat Ratio 24.17 Ratio (12.00-20.00); Calcium 8.2 mg/dL (8.7-10.3); Carbon Dioxide 20.6 mmol/L (20.0-27.5); Magnesium 2.1 mg/dL (1.5-2.4); Non-African American GFR(CKD) 54.4 (60.0-200.0); Potassium 3.8 mmol/L (3.5-5.5)
--- NOTE | 2022-09-15 11:38 | P.PN ---
Subjective Patient is seen in follow-up for acute kidney injury and chronic kidney disease. Renal function improved. Has been voiding. Denies chest pain or shortness of breath. Vital signs are stable. General: No acute distress. HEENT: Head exam is unremarkable. LUNGS: Breath sounds decreased. HEART: Rate and Rhythm are regular. ABDOMEN: Soft, no distention. EXTREMITITES: No edema. Objective - Vital Signs Vital signs: Vital Signs Temp 98.8 F 09/15/22 03:51 Pulse 80 09/15/22 11:29 Resp 22 09/15/22 03:51 BP 157/64 09/15/22 03:51 Pulse Ox 92 L 09/15/22 03:51 FiO2 Intake & Output 09/14/22 09/15/22 09/15/22 18:59 06:59 18:59 Intake Total 900 1500 Output Total 94 Balance 806 1500 Intake: Intake, IV Titration 900 800 Amount Sodium Chloride 0.9% 1, 900 800 000 ml @ 75 mls/hr IV . [id number] [facility] Rx#:[id number] Oral 700 Output: Post Void Residual 94 Other: Voiding Method Bedside Commode # Voids 1 3 # Bowel Movements 1 - Labs CBC & Chem 7: 09/14/22 05:12 09/15/22 03:55 Labs: Abnormal Lab Results - Last 24 Hours (Table) 09/15/22 Range/Units 03:55 BUN 29.0 H (9.0-27.0) mg/dL Est GFR (CKD-EPI)NonAf 54.4 L (60.0-200.0) BUN/Creatinine Ratio 24.17 H (12.00-20.00) Ratio Calcium 8.2 L (8.7-10.3) mg/dL Creatine Kinase 5336 H* (35-257) U/L Assessment and Plan Plan: Assessment: 1. Acute kidney injury secondary to ATN secondary to rhabdomyolysis. Renal function improved. Creatinine 1.2 today. Kidney ultrasound from July 2022 showed no evidence of hydronephrosis. 2. Status post fall. No acute fracture noted. 3. 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 4. Hypertension with chronic kidney disease. Stable. 5. Rhabdomyolysis. CK levels trending down. Plan: Maintain IV fluids. Monitor CK levels. Presented ejection fraction. Avoid nephrotoxins. Continue to monitor renal function and urine output.
--- NOTE | 2022-09-15 12:23 | P.CRDCN ---
History of Present Illness Consult date: 09/15/22 Reason for Consult (text): Elevated troponins History of present illness: History of present illness: This is an 87-year-old male with past medical history of chronic kidney disease stage IIIB, hypertension, hyperlipidemia, COPD, prostate cancer. Patient had a fall at home. He denied having any chest pain or palpitations at that time. He states he's had 2 falls over the past 6 months. EKG sinus rhythm with no acute ST changes Hemoglobin 12.7, BUN 29, creatinine 1.2 from 1.72. Initial CK 23,693 and repeat 5336. Troponin 0.091 and 0.060. Chest x-ray shows no acute cardiopulmonary disease process. COPD changes. Echocardiogram reveals EF of 55%, aortic sclerosis without stenosis, calcified aortic leaflets Review Of Systems: At the time of my evaluation: Constitutional: No fever, no chills. No weakness, fatigue or lethargy. EENT: No headache. No dizziness. Lungs: No shortness of breath, cough, no sputum production. No wheezing. Cardiovascular: No chest pain, no lower extremity edema. No palpitations. No paroxysmal nocturnal dyspnea. No orthopnea. No lightheadedness or dizziness. No syncopal episodes. Abdominal: No abdominal pain. No nausea, vomiting. No diarrhea. No constipation. No bloody or tarry stools.. No loss of appetite. Genitourinary: No dysuria.. No urinary retention. Musculoskeletal: No myalgias. No muscle weakness, no gait dysfunction, no frequent falls. No back pain. No neck pain. Integumentary: No wounds, no lesions. No rash or pruritus. No unusual bruising. Neurologic: No aphasia. No facial droop. No change in mentation. No head injury. No headache. No paralysis. No paresthesia. Psychiatric: No depression. No anxiety. Endocrine: No abnormal blood sugars. Physical examination: Gen: This is an 87-year-old male. He is resting in bed and appears to be comfortable and in no acute distress VS: Reviewed HEENT: Head is atraumatic, normocephalic. Pupils equal, round. Sclerae is anicteric. NECK: Supple. No JVD. No lymphadenopathy. No thyromegaly. LUNGS: Clear to auscultation. No wheezes or rhonchi. No intercostal retractions. HEART: Regular rate and rhythm. No murmur. ABDOMEN: Soft. Bowel sounds are present. No masses. No tenderness. EXTREMITIES: No pedal edema. No calf tenderness. NEUROLOGICAL: Patient is awake, alert and oriented x3. Cranial nerves 2 through 12 are grossly intact. Assessment: Rhabdomyolysis Elevated troponins not consistent with acute coronary syndrome. Abnormal CK is out of proportion to troponin that would be expected with acute coronary syndrome Hypertension Hyperlipidemia Plan: Recommend Fall workup Monitor blood pressure closely, appears to be trending upwards. No further cardiac workup is necessary at this point. Cardiology will sign off and reconsult if any new issues. Patient will follow up with Dr. Pino in the office. Thank you kindly for this consultation. Nurse practitioner note has been reviewed, I agree with documented findings and plan of care. Patient was seen and examined. Past Medical History Past Medical History: Cancer, COPD, Hyperlipidemia, Hypertension, Renal Disease Additional Past Medical History / Comment(s): Hx skin cancer, hx prostate cancer 15-20 yrs ago. 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 Past Drug Use History: None Reported - Past Family History Mother Family Medical History: No Reported History Medications and Allergies Home Medications Medication Instructions Recorded Confirmed Type Atorvastatin Calcium [Lipitor] 20 mg PO DAILY 12/19/21 09/13/22 History Bumetanide 0.5 mg PO DAILY 12/19/21 09/13/22 History Cholecalciferol [Vitamin D3 (25 25 mcg PO DAILY 12/19/21 09/13/22 History Mcg = 1000 Iu)] Fluticasone Propion/Salmeterol 1 puff INHALATION RT-BID 12/19/21 09/13/22 Histo ry [Fluticasone-Salmeterol 250-50] Ginkgo Biloba [place] Extract [Ginkgo] 60 mg PO DAILY 12/19/21 09/13/22 History Magnesium Oxide [Mag-Ox] 500 mg PO HS 12/19/21 09/13/22 History Montelukast Sodium [Singulair] 10 mg PO HS 12/19/21 09/13/22 History Tiotropium 18 Mcg/Puff [Spiriva] 1 puff INHALATION RT-DAILY 12/19/21 09/13/22 History Vit C/E/Zn/Coppr/Lutein/Zeaxan 1 cap PO BID 12/19/21 09/13/22 History [Preservision Areds 2 Softgel] calcitrioL [Calcitriol] 0.25 mcg PO DAILY 12/19/21 09/13/22 History Albuterol Nebulized [Ventolin 2.5 mg INHALATION RT-Q6H PRN 09/13/22 09/13/22 History Nebulized] Ascorbic Acid [Vitamin C with Linda 1,000 mg PO DAILY 09/13/22 09/13/22 History Hips] Multivit-Min/FA/Lycopen/Lutein 1 tab PO DAILY 09/13/22 09/13/22 History [Centrum Silver Men Tablet] Potassium Gluconate [Potassium 99 mg PO DAILY 09/13/22 09/13/22 History Gluconate ER] Prazosin HCl 2 mg PO HS 09/13/22 09/13/22 History amLODIPine [Norvasc] 5 mg PO DAILY 09/13/22 09/13/22 History Allergies Allergy/AdvReac Type Severity Reaction Status Date / Time carbamide peroxide Allergy Rash/Hives Verified 09/13/22 16:08 lisinopril AdvReac Cough Verified 09/13/22 16:08 Physical Exam Vitals: Vital Signs Temp Pulse Pulse Resp BP Pulse Ox 09/15/22 07:56 88 09/15/22 07:44 88 09/15/22 03:51 98.8 F 87 22 157/64 92 L 09/14/22 20:31 80 09/14/22 20:21 86 09/14/22 19:50 16 09/14/22 19:31 98.3 F 84 16 126/63 94 L 09/14/22 16:39 76 09/14/22 16:30 80 09/14/22 13:40 84 09/14/22 13:28 80 09/14/22 11:19 98.3 F 85 16 137/65 94 L Intake and Output 1209/15/22 09/15/22 22:59 06:59 14:59 Intake Total 900 1500 Balance 900 1500 Intake: Intake, IV Titration 900 800 Amount Sodium Chloride 0.9% 1, 900 800 000 ml @ 75 mls/hr IV . [id number] [facility] Rx#:[id number] Oral 700 Other: Voiding Method Bedside Commode # Voids 3 Results 09/14/22 05:12 09/15/22 03:55 Cardiac Enzymes 09/14/22 Range/Units 05:12 AST 451 H (14-35) U/L Comprehensive Metabolic Panel 09/14/22 Range/Units 05:12 Sodium 143 (135-145) mmol/L Potassium 3.7 (3.5-5.5) mmol/L Chloride 109 (96-109) mmol/L Carbon Dioxide 21.1 (20.0-27.5) mmol/L BUN 48.4 H (9.0-27.0) mg/dL Creatinine 1.4 (0.6-1.5) mg/dL Glucose 118 H (70-110) mg/dL Calcium 8.4 L (8.7-10.3) mg/dL AST 451 H (14-35) U/L ALT 226 H (10-49) U/L Alkaline Phosphatase 53 (41-126) U/L Total Protein 5.8 L (6.2-8.2) g/dL Albumin 3.4 L (3.8-4.9) g/dL Current Medications Generic Name Dose Route Start Last Admin Trade Name Freq PRN Reason Stop Dose Admin Acetaminophen 325 mg 09/14/22 13:13 09/14/22 13:22 Acetaminophen Tab 325 Mg Tab PO 325 mg Q6HR PRN Administration Fever and/ or Pain Albuterol Sulfate 2.5 mg 09/14/22 11:46 Albuterol Nebulized 2.5 Mg/3 Ml INHALATION RT-Q6H PRN Shortness Of Breath Albuterol/Ipratropium 3 ml 09/13/22 20:00 09/15/22 07:44 Ipratropium-Albuterol 3 Ml Neb INHALATION 3 ml RT-QID DIA Administration Amlodipine Besylate 5 mg 09/15/22 09:00 09/15/22 08:34 Amlodipine 5 Mg Tab PO 5 mg DAILY DIA Administration Ascorbic Acid 1,000 mg 09/15/22 09:00 09/15/22 08:34 Ascorbic Acid 500 Mg Tab PO 1,000 mg DAILY DIA Administration Atorvastatin Calcium 20 mg 09/15/22 09:00 09/15/22 08:34 Atorvastatin 20 Mg Tab PO 20 mg DAILY DIA Administration Bumetanide 0.5 mg 09/15/22 09:00 09/15/22 08:34 Bumetanide 1 Mg Tab PO 0.5 mg DAILY DIA Administration Calcitriol 0.25 mcg 09/15/22 09:00 09/15/22 08:34 Calcitriol 0.25 Mcg Cap PO 0.25 mcg DAILY DIA Administration Cholecalciferol 25 mcg 09/15/22 09:00 09/15/22 08:34 Cholecalciferol 25 Mcg (1000 Iu) Tablet PO 25 mcg DAILY DIA Administration Famotidine 20 mg 09/14/22 21:00 09/14/22 19:58 Famotidine 20 Mg/2 Ml Vial IV 20 mg HS DIA Administration Heparin Sodium (Porcine) 5,000 unit 09/14/22 21:00 09/15/22 08:35 Heparin Sodium,Porcine/Pf 5,000 Unit/0.5 Ml Syringe SQ 5,000 unit Q12HR [facility] Administration Sodium Chloride 1,000 mls @ 75 mls/hr 09/13/22 18:30 09/14/22 17:39 Saline 0.9% IV 75 mls/hr .[id number] DIA Administration Magnesium Oxide 400 mg 09/13/22 21:00 09/14/22 21:09 Magnesium Oxide 400 Mg Tab PO 400 mg HS DIA Administration Montelukast Sodium 10 mg 09/13/22 21:00 09/14/22 20:00 Montelukast 10 Mg Tab PO 10 mg HS DIA Administration Multivitamins/Minerals 1 each 09/13/22 21:00 09/15/22 08:34 Vit A,C & K-Tzwchr-Yztvdwrb 1 Each Tab PO 1 each BID DIA Administration Naloxone HCl 0.2 mg 09/13/22 14:26 Naloxone 0.4 Mg/Ml 1 Ml Vial IV Q2M PRN Opioid Reversal Ondansetron HCl 4 mg 09/13/22 14:26 Ondansetron 4 Mg/2 Ml Vial IVP Q8HR PRN Nausea And Vomiting Prazosin HCl 2 mg 09/13/22 21:00 09/14/22 20:00 Prazosin 1 Mg Cap PO 2 mg HS DIA Administration Intake and Output 09/14/22 09/15/22 09/15/22 22:59 06:59 14:59 Intake Total 900 1500 Balance 900 1500 Intake: Intake, IV Titration 900 800 Amount Sodium Chloride 0.9% 1, 900 800 000 ml @ 75 mls/hr IV . [id number] [facility] Rx#:[id number] Oral 700 Other: Voiding Method Bedside Commode # Voids 3 09/14/22 05:12 09/14/22 05:12
--- NOTE | 2022-09-15 12:54 | P.PN ---
Subjective This is a pleasant 87 years old male with multiple medical problems as below. Presents because he was found on the floor for 24 hours when the family felt to get hold of him. He'll patient states that he got up from his bed and he felt very weak and fell on the ground, and then he got up again filled 1 more time and he was in the floor for 24 hours before family could find him. Patient somewhat tachypneic and is complaining of from cough with little yellow phlegm. 2 days ago his complaint of from severe left sided chest pain that lasted for 3 hours, currently he denies any chest pain. He denies any headache or dizziness or weakness or numbness. No urgency or dysuria. No abdominal pain or vomiting or diarrhea. as per family patient has stage IV kidney disease and he follow-up with Dr. Woods he has an outside clinic Pt presents to ED today for complaint of fall on . The pt was found today by family on the floor. PT has abasion noted to forehead. Pt denie LOC or thinners. Pt denies injury from fall. Following without losing consciousness Vitas looks stable Has unremarkable CBC and INR Creatinine is elevated at 1.7, unknown baseline Elevated liver enzymes AST 752 and a 50-69 with normal bilirubin Creat[place] 70234 Elevated troponin 0.09 Lipase normal urinalysis showing 2+ protein and large blood and bone urine RBC less than 1 CT of the head and neck: No acute process, no fracture or dislocation Chest x-ray: No acute process Pelvic x-ray: No acute process Left knee process also no acute process but there is pre-patellar soft tissue edema EKG showing sinus rhythm at 89 with QTC 4:30 with moderate interventricular conduction delay In the emergency room patient received several doses of normal saline boluses 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 Denies chest pain. And his rhabdomyolysis is improving with creatinine kinase trending down to 5336. Creatinine back to the reference range on 1.2. However patient is mildly tachypneic today, chest x-ray is ordered Patient remains on gentle hydration, we added Norvasc for better blood pressure control with close monitoring Troponin are not related to cardiac disease and cardiology signed off. Objective - Vital Signs Vital signs: Vital Signs Temp 99.3 F 09/15/22 11:14 Pulse 84 09/15/22 11:39 Resp 20 09/15/22 11:14 BP 163/71 09/15/22 11:14 Pulse Ox 94 L 09/15/22 11:14 FiO2 Intake & Output 09/14/22 09/15/22 09/15/22 18:59 06:59 18:59 Intake Total 900 1500 Output Total 94 Balance 806 1500 Intake: Intake, IV Titration 900 800 Amount Sodium Chloride 0.9% 1, 900 800 000 ml @ 75 mls/hr IV . [id number] [facility] Rx#:[id number] Oral 700 Output: Post Void Residual 94 Other: Voiding Method Bedside Commode # Voids 1 3 4 # Bowel Movements 1 - Exam GENERAL: The patient is alert and oriented x3, not in any acute distress. Well developed, well nourished. HEENT: Pupils are round and equally reacting to light. EOMI. No scleral icterus. No conjunctival pallor. Normocephalic, atraumatic. No pharyngeal erythema. No thyromegaly. CARDIOVASCULAR: S1 and S2 present. No murmurs, rubs, or gallops. PULMONARY: Chest is clear to auscultation, no wheezing or crackles. ABDOMEN: Soft, nontender, nondistended, normoactive bowel sounds. No palpable organomegaly. MUSCULOSKELETAL: No joint swelling or deformity. EXTREMITIES: No cyanosis, clubbing, or pedal edema. NEUROLOGICAL: Gross neurological examination did not reveal any focal deficits. SKIN: No rashes. no petechiae. - Labs CBC & Chem 7: 09/14/22 05:12 09/15/22 03:55 Labs: Abnormal Lab Results - Last 24 Hours (Table) 09/15/22 Range/Units 03:55 BUN 29.0 H (9.0-27.0) mg/dL Est GFR (CKD-EPI)NonAf 54.4 L (60.0-200.0) BUN/Creatinine Ratio 24.17 H (12.00-20.00) Ratio Calcium 8.2 L (8.7-10.3) mg/dL Creatine Kinase 5336 H* (35-257) U/L Assessment and Plan Assessment: rhabdomyolysis Acute kidney injury improving elevated tropoin , could be troponin leak from did not supply mismatch and kidney injury, ruled out cardiac disease Transaminitis, related to rhabdomyolysis Hematuria (no RBC ) and proteinuria COPD Hyperlipidemia Hypertension Remote history of cancer 15-20 years ago Plan: Continue with intravenous hydration Follow-up kidney function and creatinine kinase Check a bladder scan Neck [employer] consult Dragline [employer]ic team consult Labs and medication were reviewed.. Continue same treatment. Continue with symptomatic treatment. Resume home medication. Monitor lytes and vitals. DVT and GI prophylaxis. Further recommendations as per clinical course of the patient DVT prophylaxis: Subcutaneous heparin GI Prophylaxis: Pepcid PT/OT: Pending Prognosis is guarded
--- NOTE | 2022-09-15 15:10 | XR ---
EXAMINATION TYPE: XR chest 1V DATE OF EXAM: 09/15/2022 COMPARISON: 09/13/2022 HISTORY: 87-year-old male shortness of breath TECHNIQUE: Single frontal view of the chest is obtained. FINDINGS: Heart upper limits of normal in size. Diffuse interstitial and patchy densities similar to slightly i ncreased. No pleural effusion. IMPRESSION: Bilateral interstitial and patchy opacity slightly worsened from 09/13/2022. Consider possibilities rocha ch as bronchitis or atypical or COVID pneumonia.
[2022-09-15] MEDS: SODIUM CHLORIDE 0.9% 1,000 ML IV SCH (17:39)
[2022-09-15] MEDS: MAGNESIUM OXIDE 400 MG TAB PO SCH (22:07)
[2022-09-15] MEDS: MONTELUKAST 10 MG TAB PO SCH (22:07)
[2022-09-15] MEDS: FAMOTIDINE 20 MG TAB PO SCH (22:07)
[2022-09-15] MEDS: PRAZOSIN 1 MG CAP PO SCH (22:07)
[2022-09-16] MEDS: HEPARIN SODIUM,PORCINE/PF 5,000 UNIT/0.5 ML SYRINGE SQ SCH ×2 (07:59→20:12)
[2022-09-16] MEDS: amLODIPine 5 MG TAB PO SCH (08:01)
[2022-09-16] MEDS: CHOLECALCIFEROL 25 MCG (1000 IU) TABLET PO SCH (08:01)
[2022-09-16] MEDS: ATORVASTATIN 20 MG TAB PO SCH (08:01)
[2022-09-16] MEDS: ASCORBIC ACID 500 MG TAB PO SCH (08:01)
[2022-09-16] MEDS: VIT A,C & E-LUTEIN-MINERALS 1 EACH TAB PO SCH ×2 (08:02→20:13)
[2022-09-16] MEDS: IPRATROPIUM-ALBUTEROL 3 ML NEB INHALATION SCH ×4 (10:02→19:36)
[2022-09-16 10:22] LABS: HCT 36.2 % (39.6-50.0); HGB 12.5 g/dL (13.0-17.0); MCH 33.2 pg (27.0-32.0); MCHC 34.5 g/dL (32.0-37.0); MCV 96.3 fL (80.0-97.0); Mean Platelet Volume 10.7 fL (9.5-12.2); NRBC Per 100 WBC 0 /100 WBCS (0.0-0.0); Platelet Count 254 X 10*3/uL (140-440); RBC 3.76 X 10*6/uL (4.40-5.60); RDW 12.1 % (11.5-14.5)
[2022-09-16 10:34] LABS: African American GFR (CKD) 63.1 (60.0-200.0); Albumin 3.2 g/dL (3.8-4.9); Albumin/Globulin Ratio 1.18 (1.60-3.17); Anion Gap 13.9 mmol/L (10.00-18.00); BUN/Creat Ratio 14.42 Ratio (12.00-20.00); Bilirubin, Conjugated 0.25 mg/dL (0.20-0.40); Bilirubin,Unconjugated 0.44 mg/dL (0.20-1.00); Blood Urea Nitrogen 17.3 mg/dL (9.0-27.0); Calcium 8.6 mg/dL (8.7-10.3); Carbon Dioxide 23.6 mmol/L (20.0-27.5); Globulin 2.7 g/dL (1.6-3.3); Magnesium 1.9 mg/dL (1.5-2.4); Non-African American GFR(CKD) 54.4 (60.0-200.0); Potassium 3.4 mmol/L (3.5-5.5); Total Bilirubin 0.7 mg/dL (0.30-1.20); Total Protein 5.9 g/dL (6.2-8.2)
[2022-09-16] MEDS ORDERED: POTASSIUM CHLORIDE ER 20 MEQ TAB.ER PO STA (12:17)
--- NOTE | 2022-09-16 12:17 | P.PN ---
Subjective Patient is seen in follow-up for acute kidney injury and chronic kidney disease. Renal function improved. Creatinine 1.2. Has been voiding. Denies chest pain or shortness of breath. Currently on room air. Vital signs are stable. General: No acute distress. HEENT: Head exam is unremarkable. LUNGS: Breath sounds decreased. HEART: Rate and Rhythm are regular. ABDOMEN: Soft, no distention. EXTREMITITES: No edema. Objective - Vital Signs Vital signs: Vital Signs Temp 97.6 F 09/16/22 07:29 Pulse 80 09/16/22 11:36 Resp 18 09/16/22 11:36 BP 142/89 09/16/22 07:29 Pulse Ox 93 L 09/16/22 07:29 FiO2 Intake & Output 09/15/22 09/16/22 09/16/22 18:59 06:59 18:59 Intake Total 600 600 Output Total 450 Balance 600 150 Intake: Intake, IV Titration 600 600 Amount Sodium Chloride 0.9% 1, 600 600 000 ml @ 50 mls/hr IV . Q20H [facility] Rx#:[id number] Output: Urine 450 Other: Voiding Method Urinal Urinal # Voids 4 1 - Labs CBC & Chem 7: 09/16/22 06:15 09/16/22 06:15 Labs: Abnormal Lab Results - Last 24 Hours (Table) 09/15/22 09/16/22 09/16/22 Range/Units 16:25 06:15 06:15 RBC 3.76 L (4.40-5.60) X 10*6/uL Hgb 12.5 L (13.0-17.0) g/dL Hct 36.2 L (39.6-50.0) % MCH 33.2 H (27.0-32.0) pg Potassium (3.5-5.5) mmol/L Est GFR (CKD-EPI)NonAf (60.0-200.0) Calcium (8.7-10.3) mg/dL AST (14-35) U/L ALT (10-49) U/L Creatine Kinase (35-257) U/L Total Protein (6.2-8.2) g/dL Albumin (3.8-4.9) g/dL Albumin/Globulin Ratio (1.60-3.17) g/dL Procalcitonin 0.24 H (0.02-0.09) ng/mL RSV (PCR) Detected A (Not Detectd) 09/16/22 Range/Units 06:15 RBC (4.40-5.60) X 10*6/uL Hgb (13.0-17.0) g/dL Hct (39.6-50.0) % MCH (27.0-32.0) pg Potassium 3.4 L (3.5-5.5) mmol/L Est GFR (CKD-EPI)NonAf 54.4 L (60.0-200.0) Calcium 8.6 L (8.7-10.3) mg/dL AST 235 H (14-35) U/L ALT 210 H (10-49) U/L Creatine Kinase 2105 H* (35-257) U/L Total Protein 5.9 L (6.2-8.2) g/dL Albumin 3.2 L (3.8-4.9) g/dL Albumin/Globulin Ratio 1.18 L (1.60-3.17) g/dL Procalcitonin (0.02-0.09) ng/mL RSV (PCR) (Not Detectd) Assessment and Plan Plan: Assessment: 1. Acute kidney injury secondary to ATN secondary to rhabdomyolysis. Renal function improved. Creatinine stable at 1.2 today. Kidney ultrasound from July 2022 showed no evidence of hydronephrosis. 2. Status post fall. No acute fracture noted. 3. 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 4. Hypertension with chronic kidney disease. Stable. 5. Rhabdomyolysis. CK levels trending down. 6. Hypokalemia from poor intake. Magnesium normal. Plan: Hep-Lock IV fluids. Preserved ejection fraction. Avoid nephrotoxins. Continue to monitor renal function and urine output. Replace potassium. Encourage oral intake
[2022-09-16 12:39] LABS: Basophils # (A) 0.04 X 10*3/uL (0.00-0.10); Basophils % (A) 0.5 %; Eosinophils # (A) 0.04 X 10*3/uL (0.04-0.35); Eosinophils % (A) 0.5 %; Immature Grans, Automated 1.1 %; Lymphocytes # (A) 1.28 X 10*3/uL (0.90-5.00); Lymphocytes % (A) 14.7 %; Monocytes # (A) 0.66 X 10*3/uL (0.20-1.00); Monocytes % (A) 7.6 %; Neutrophils # (A) 6.58 X 10*3/uL (1.80-7.70); Neutrophils % (A) 75.6 %; RBC Morphology NORMAL
[2022-09-16] MEDS ORDERED: Potassium Replacement Protocol 1 EACH MISC MISCELLANE PRN (12:41)
--- NOTE | 2022-09-16 15:26 | P.CNPUL ---
History of Present Illness Consult date: 09/16/22 Reason for consult: dyspnea, cough, chest pain, COPD, hypoxemia Chief complaint: Shortness of breath History of present illness: Patient is a 87-year-old male with the multiple complex past medical history brought into emergency department as he was found on the floor for over 24 hours patient felt that he was very weak and fell down on the ground family found him and brought into the hospital for further evaluation, on arrival he was tachypneic tachycardic as ongoing cough with yellowish sputum production, patient isn't having left-sided intermittent pleuritic chest pain significant labs include creatinine of 1.7 with unknown baseline, LFTs were elevated with AST of 752. CK is over 23,000, troponin was 0.09, lipase normal, urine analysis +2 protein and large blood, computed tomography scan of the head and neck no acute process seen, chest x-ray was unremarkable, his pelvic x-ray also unremarkable, EKG shows sinus rhythm with rate of 89 patient post admission rehydrated, also with bronchodilator continuation of home medications and his echocardiogram performed 2 days ago LVH was preserved systolic function, aortic stenosis not seen by some sclerosis was identified, chest x-ray yesterday shows bilateral interstitial and patchy opacities slightly progressed compared to September 13 exam suggestive of the ongoing infectious etiology. Labs today reviewed white cell count is 8.7, hemoglobin is 12.5, platelet count of the 254, sodium is 1:30 and impression 3.4, BUN/creatinine improved to 17.3/1.2 AST and ALT were 235/210 total CK came down to 2105, pro culture nares 0.2, RSV is positive however: Weight 19 as well as influenza A and B were negative Review of Systems All systems: negative Past Medical History Past Medical History: Cancer, COPD, Hyperlipidemia, Hypertension, Renal Disease Additional Past Medical History / Comment(s): Hx skin cancer, hx prostate cancer 15-20 yrs ago. 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 Past Drug Use History: None Reported - Past Family History Mother Family Medical History: No Reported History Medications and Allergies Home Medications Medication Instructions Recorded Confirmed Type Atorvastatin Calcium [Lipitor] 20 mg PO DAILY 12/19/21 09/13/22 History Bumetanide 0.5 mg PO DAILY 12/19/21 09/13/22 History Cholecalciferol [Vitamin D3 (25 25 mcg PO DAILY 12/19/21 09/13/22 History Mcg = 1000 Iu)] Fluticasone Propion/Salmeterol 1 puff INHALATION RT-BID 12/19/21 09/13/22 History [Fluticasone-Salmeterol 250-50] Ginkgo Biloba Monango Extract [Ginkgo] 60 mg PO DAILY 12/19/21 09/13/22 History Magnesium Oxide [Mag-Ox] 500 mg PO HS 12/19/21 09/13/22 History Montelukast Sodium [Singulair] 10 mg PO HS 12/19/21 09/13/22 History Tiotropium 18 Mcg/Puff [Spiriva] 1 puff INHALATION RT-DAILY 12/19/21 09/13/22 History Vit C/E/Zn/Coppr/Lutein/Zeaxan 1 cap PO BID 12/19/21 09/13/22 History [Preservision Areds 2 Softgel] calcitrioL [Calcitriol] 0.25 mcg PO DAILY 12/19/21 09/13/22 History Albuterol Nebulized [Ventolin 2.5 mg INHALATION RT-Q6H PRN 09/13/22 09/13/22 History Nebulized] Ascorbic Acid [Vitamin C with Linda 1,000 mg PO DAILY 09/13/22 09/13/22 History Hips] Multivit-Min/FA/Lycopen/Lutein 1 tab PO DAILY 09/13/22 09/13/22 History [Centrum Silver Men Tablet] Potassium Gluconate [Potassium 99 mg PO DAILY 09/13/22 09/13/22 History Gluconate ER] Prazosin HCl 2 mg PO HS 09/13/22 09/13/22 History amLODIPine [Norvasc] 5 mg PO DAILY 09/13/22 09/13/22 History Allergies Allergy/AdvReac Type Severity Reaction Status Date / Time carbamide peroxide Allergy Rash/Hives Verified 09/13/22 16:08 lisinopril AdvReac Cough Verified 09/13/22 16:08 Physical Exam Vitals: Vital Signs Temp Pulse Pulse Resp BP Pulse Ox 09/16/22 14:00 97.9 F 99 14 108/54 91 L 09/16/22 11:36 80 18 09/16/22 11:27 77 16 09/16/22 08:02 97 13 09/16/22 07:29 97.6 F 97 13 142/89 93 L 09/15/22 22:08 90 20 09/15/22 21:01 88 09/15/22 21:00 99.3 F 90 20 154/65 94 L 09/15/22 20:44 92 09/15/22 16:37 85 09/15/22 16:27 82 Intake and Output 09/16/22 09/16/22 09/16/22 06:59 14:59 22:59 Intake Total 600 Output Total 450 Balance 150 Intake: Intake, IV Titration 600 Amount Sodium Chloride 0.9% 1, 600 000 ml @ 50 mls/hr IV . Q20H [facility] Rx#:[id number] Output: Urine 450 Other: Voiding Method Urinal # Voids 1 - Constitutional General appearance: average body habitus, cooperative, disheveled - EENT Eyes: EOMI, PERRLA Ears: bilateral: normal - Neck Neck: normal ROM Carotids: bilateral: upstroke normal - Respiratory Respiratory: bilateral: wheezing - Cardiovascular Rhythm: regular Heart sounds: normal: S1, S2 - Gastrointestinal General gastrointestinal: normal bowel sounds, soft - Integumentary Integumentary: normal turgor - Neurologic Neurologic: CNII-XII intact - Musculoskeletal Musculoskeletal: gait normal, generalized weakness, strength equal bilaterally - Psychiatric Psychiatric: A&O x's 3, appropriate affect, intact judgment & insight Results - Laboratory Findings CBC and BMP: 09/16/22 06:15 09/16/22 06:15 PT/INR, D-dimer PT 10.3 sec (9.0-12.0) 09/13/22 11:58 INR 1.0 (<1.2) 09/13/22 11:58 Abnormal lab findings: Abnormal Labs 09/13/22 09/13/22 09/13/22 11:58 11:58 11:58 RBC Hgb Hct MCV MCH Plt Count Comment Immature Gran # Lymphocytes # (Manual) 0.66 L Eosinophils # Potassium Chloride 111 H BUN 62 H Creatinine 1.72 H Est GFR (CKD-EPI)AfAm Est GFR (CKD-EPI)NonAf BUN/Creatinine Ratio Glucose 133 H Calcium Magnesium 2.6 H AST 752 H ALT 269 H Creatine Kinase 82374 H* Troponin I 0.091 H* Total Protein Albumin Albumin/Globulin Ratio Procalcitonin Urine Protein Urine Ketones Urine Blood Amorphous Sediment Urine Mucus RSV (PCR) 09/13/22 09/14/22 09/14/22 16:20 05:12 05:12 RBC 3.83 L Hgb 12.7 L Hct 37.6 L MCV 98.2 H MCH 33.2 H Plt Count Comment DECREASED A Immature Gran # Lymphocytes # (Manual) Eosinophils # 0.02 L Potassium Chloride BUN 48.4 H Creatinine Est GFR (CKD-EPI)AfAm 52.4 L Est GFR (CKD-EPI)NonAf 45.2 L BUN/Creatinine Ratio 34.57 H Glucose 118 H Calcium 8.4 L Magnesium AST 451 H ALT 226 H Creatine Kinase 20400 H* Troponin I Total Protein 5.8 L Albumin 3.4 L Albumin/Globulin Ratio 1.42 L Procalcitonin Urine Protein 2+ H Urine Ketones 2+ H Urine Blood Large H Amorphous Sediment Rare H Urine Mucus Occasional H RSV (PCR) 09/14/22 09/15/22 09/15/22 05:12 03:55 16:25 RBC Hgb Hct MCV MCH Plt Count Comment Immature Gran # Lymphocytes # (Manual) Eosinophils # Potassium Chloride BUN 29.0 H Creatinine Est GFR (CKD-EPI)AfAm Est GFR (CKD-EPI)NonAf 54.4 L BUN/Creatinine Ratio 24.17 H Glucose Calcium 8.2 L Magnesium AST ALT Creatine Kinase 5336 H* Troponin I 0.060 H* Total Protein Albumin Albumin/Globulin Ratio Procalcitonin Urine Protein Urine Ketones Urine Blood Amorphous Sediment Urine Mucus RSV (PCR) Detected A 09/16/22 09/16/22 09/16/22 06:15 06:15 06:15 RBC 3.76 L Hgb 12.5 L Hct 36.2 L MCV MCH 33.2 H Plt Count Comment Immature Gran # 0.10 H Lymphocytes # (Manual) Eosinophils # Potassium 3.4 L Chloride BUN Creatinine Est GFR (CKD-EPI)AfAm Est GFR (CKD-EPI)NonAf 54.4 L BUN/Creatinine Ratio Glucose Calcium 8.6 L Magnesium AST 235 H ALT 210 H Creatine Kinase 2105 H* Troponin I Total Protein 5.9 L Albumin 3.2 L Albumin/Globulin Ratio 1.18 L Procalcitonin 0.24 H Urine Protein Urine Ketones Urine Blood Amorphous Sediment Urine Mucus RSV (PCR) - Diagnostic Findings Chest x-ray: report reviewed, image reviewed (Finding as noted above) Assessment and Plan Assessment: Acute pneumonia primarily related to RSV virus however secondary pneumonia cannot be excluded Acute hypoxic respiratory failure due to above Acute rhabdomyolysis and acute kidney injury Elevated liver enzymes Status post fall Plan: Continue to gently rehydrate Will check d-dimer if elevated we will do a computed tomography scan of the chest to rule out pulmonary embolism and lower extremity Doppler to rule out DVT And broad-spectrum antibiotics IV steroids for airway inflammation for short duration Continue bronchodilators Further care plan as per clinical response of the patient Time with Patient: Greater than 30
--- NOTE | 2022-09-16 18:11 | P.PN ---
Subjective This is a pleasant 87 years old male with multiple medical problems as below. Presents because he was found on the floor for 24 hours when the family felt to get hold of him. He'll patient states that he got up from his bed and he felt very weak and fell on the ground, and then he got up again filled 1 more time and he was in the floor for 24 hours before family could find him. Patient somewhat tachypneic and is complaining of from cough with little yellow phlegm. 2 days ago his complaint of from severe left sided chest pain that lasted for 3 hours, currently he denies any chest pain. He denies any headache or dizziness or weakness or numbness. No urgency or dysuria. No abdominal pain or vomiting or diarrhea. as per family patient has stage IV kidney disease and he follow-up with Dr. Woods he has an outside clinic Pt presents to ED today for complaint of fall on . The pt was found today by family on the floor. PT has abasion noted to forehead. Pt denie LOC or thinners. Pt denies injury from fall. Following without losing consciousness Vitas looks stable Has unremarkable CBC and INR Creatinine is elevated at 1.7, unknown baseline Elevated liver enzymes AST 752 and a 50-69 with normal bilirubin [place] 24[address] Elevated troponin 0.09 Lipase normal urinalysis showing 2+ protein and large blood and bone urine RBC less than 1 CT of the head and neck: No acute process, no fracture or dislocation Chest x-ray: No acute process Pelvic x-ray: No acute process Left knee process also no acute process but there is pre-patellar soft tissue edema EKG showing sinus rhythm at 89 with QTC 4:30 with moderate interventricular conduction delay In the emergency room patient received several doses of normal saline boluses Admitted with furnace clerk team consult 09/15/2022 Patient less generalized pain. Denies chest pain. And his rhabdomyolysis is improving with creatinine kinase trending down to 5336. Creatinine back to the reference range on 1.2. However patient is mildly tachypneic today, chest x-ray is ordered Patient remains on gentle hydration, we added Norvasc for better blood pressure control with close monitoring Troponin are not related to cardiac disease and cardiology signed off. 09/16/2022 Patient still awake, denies chest pain is still mildly tachypneic, he has wheezing although it is felt to be coming from the airway but there is some competence of bronchospasm. Patient may benefit from steroids and also there's elements of bilateral pneumonia secondary to RSV to viral infection however bacterial cannot be entirely excluded, procalcitonin is mildly elevated at 0.25 patient might benefit from antibiotics, we will defer management to pulmonary team were consulted. Currently he is saturating 93% on room air Elected patient has CHF. ProBNP is not elevated significantly. Creatinine stable at 1.2 and creatinine kinase coming down to 105. Patient remains on gentle hydration normal saline 50 mL/h The first chemo on the case Objective - Vital Signs Vital signs: Vital Signs Temp 97.6 F 09/16/22 07:29 Pulse 80 09/16/22 11:36 Resp 18 09/16/22 11:36 BP 142/89 09/16/22 07:29 Pulse Ox 93 L 09/16/22 07:29 FiO2 Intake & Output 09/15/22 09/16/22 09/16/22 18:59 06:59 18:59 Intake Total 600 600 Output Total 450 Balance 600 150 Intake: Intake, IV Titration 600 600 Amount Sodium Chloride 0.9% 1, 600 600 000 ml @ 50 mls/hr IV . Q20H [facility] Rx#:[id number] Output: Urine 450 Other: Voiding Method Urinal Urinal # Voids 4 1 - Exam GENERAL: The patient is alert and oriented x3, not in any acute distress. Well developed, well nourished. HEENT: Pupils are round and equally reacting to light. EOMI. No scleral icterus. No conjunctival pallor. Normocephalic, atraumatic. No pharyngeal erythema. No thyromegaly. CARDIOVASCULAR: S1 and S2 present. No murmurs, rubs, or gallops. PULMONARY: Chest is clear to auscultation, no wheezing or crackles. ABDOMEN: Soft, nontender, nondistended, normoactive bowel sounds. No palpable organomegaly. MUSCULOSKELETAL: No joint swelling or deformity. EXTREMITIES: No cyanosis, clubbing, or pedal edema. NEUROLOGICAL: Gross neurological examination did not reveal any focal deficits. SKIN: No rashes. no petechiae. - Labs CBC & Chem 7: 09/16/22 06:15 09/16/22 06:15 Labs: Abnormal Lab Results - Last 24 Hours (Table) 09/15/22 09/16/22 09/16/22 Range/Units 16:25 06:15 06:15 RBC 3.76 L (4.40-5.60) X 10*6/uL Hgb 12.5 L (13.0-17.0) g/dL Hct 36.2 L (39.6-50.0) % MCH 33.2 H (27.0-32.0) pg Potassium (3.5-5.5) mmol/L Est GFR (CKD-EPI)NonAf (60.0-200.0) Calcium (8.7-10.3) mg/dL AST (14-35) U/L ALT (10-49) U/L Creatine Kinase (35-257) U/L Total Protein (6.2-8.2) g/dL Albumin (3.8-4.9) g/dL Albumin/Globulin Ratio (1.60-3.17) g/dL Procalcitonin 0.24 H (0.02-0.09) ng/mL RSV (PCR) Detected A (Not Detectd) 09/16/22 Range/Units 06:15 RBC (4.40-5.60) X 10*6/uL Hgb (13.0-17.0) g/dL Hct (39.6-50.0) % MCH (27.0-32.0) pg Potassium 3.4 L (3.5-5.5) mmol/L Est GFR (CKD-EPI)NonAf 54.4 L (60.0-200.0) Calcium 8.6 L (8.7-10.3) mg/dL AST 235 H (14-35) U/L ALT 210 H (10-49) U/L Creatine Kinase 2105 H* (35-257) U/L Total Protein 5.9 L (6.2-8.2) g/dL Albumin 3.2 L (3.8-4.9) g/dL Albumin/Globulin Ratio 1.18 L (1.60-3.17) g/dL Procalcitonin (0.02-0.09) ng/mL RSV (PCR) (Not Detectd) Assessment and Plan Assessment: rhabdomyolysis Acute kidney injury improving Bilateral pneumonia secondary to RSV, posterior component cannot be ruled out entirely Some elements of the active bronchospasm and to bronchitis elevated tropoin , could be troponin leak from did not supply mismatch and kidney injury, cardiac disease ruled out Transaminitis, related to rhabdomyolysis Hematuria (no RBC ) and proteinuria COPD Hyperlipidemia Hypertension Remote history of cancer 15-20 years ago Plan: Continue with intravenous hydration Follow-up kidney function and creatinine kinase Check a bladder scan Pulmonary team consult Purchasing Specialist team consult Academic Guidance Specialist signed off the case Labs and medication were reviewed.. Continue same treatment. Continue with symptomatic treatment. Resume home medication. Monitor lytes and vitals. DVT and GI prophylaxis. Further recommendations as per clinical course of the patient DVT prophylaxis: Subcutaneous heparin GI Prophylaxis: Pepcid PT/OT: Pending Prognosis is guarded
[2022-09-16] MEDS: SODIUM CHLORIDE 0.9% 1,000 ML IV SCH (19:47)
[2022-09-16] MEDS: methylPREDNISolone SOD SUCCI 40 MG/ML 1 ML VIAL IV SCH (20:12)
[2022-09-16] MEDS: FAMOTIDINE 20 MG TAB PO SCH (20:13)
[2022-09-16] MEDS: PRAZOSIN 1 MG CAP PO SCH (20:13)
[2022-09-16] MEDS: MONTELUKAST 10 MG TAB PO SCH (20:13)
[2022-09-16] MEDS: MAGNESIUM OXIDE 400 MG TAB PO SCH (20:13)
[2022-09-16] MEDS ORDERED: QUEtiapine 25 MG TAB PO SCH (21:00)
[2022-09-17 01:06] LABS: Glucose,Whole Blood 131 mg/dL (70-110)
[2022-09-17] MEDS: methylPREDNISolone SOD SUCCI 40 MG/ML 1 ML VIAL IV SCH ×2 (08:08→21:21)
[2022-09-17] MEDS: IPRATROPIUM-ALBUTEROL 3 ML NEB INHALATION SCH ×4 (08:34→20:24)
[2022-09-17 09:34] LABS: ALT 188 U/L (10-49); AST 126 U/L (14-35); African American GFR (CKD) 65.7 (60.0-200.0); Albumin 3.1 g/dL (3.8-4.9); Albumin/Globulin Ratio 1.07 (1.60-3.17); Alkaline Phosphatase 60 U/L (41-126); Bilirubin, Conjugated <0.20 mg/dL (0.20-0.40); Blood Urea Nitrogen 22.5 mg/dL (9.0-27.0); Calcium 8.8 mg/dL (8.7-10.3); Chloride 105 mmol/L (96-109); Creatine Kinase 748 U/L (35-257); Globulin 2.9 g/dL (1.6-3.3); Glucose 147 mg/dL (70-110); Non-African American GFR(CKD) 56.7 (60.0-200.0); Potassium 4.4 mmol/L (3.5-5.5); Sodium 140 mmol/L (135-145)
[2022-09-17] MEDS: HEPARIN SODIUM,PORCINE/PF 5,000 UNIT/0.5 ML SYRINGE SQ SCH ×2 (09:48→21:20)
[2022-09-17] MEDS: ASCORBIC ACID 500 MG TAB PO SCH (09:48)
[2022-09-17] MEDS: CHOLECALCIFEROL 25 MCG (1000 IU) TABLET PO SCH (09:48)
[2022-09-17] MEDS: VIT A,C & E-LUTEIN-MINERALS 1 EACH TAB PO SCH ×2 (09:48→21:21)
[2022-09-17] MEDS: ATORVASTATIN 20 MG TAB PO SCH (09:48)
[2022-09-17] MEDS: amLODIPine 5 MG TAB PO SCH (09:48)
[2022-09-17 11:13] LABS: Glucose,Whole Blood 155 mg/dL (70-110)
[2022-09-17] MEDS ORDERED: DEXTROSE 50% SYRINGE 50 ML IVP PRN ×2 (11:23)
--- NOTE | 2022-09-17 11:50 | P.PN ---
Subjective Patient is seen in follow-up for acute kidney injury and chronic kidney disease. Renal function stable. Has been voiding. Denies chest pain or shortness of breath. Blood pressure stable. Vital signs are stable. General: No acute distress. HEENT: Head exam is unremarkable. LUNGS: Breath sounds decreased. HEART: Rate and Rhythm are regular. ABDOMEN: Soft, no distention. EXTREMITITES: No edema. Objective - Vital Signs Vital signs: Vital Signs Temp 97.9 F 09/17/22 07:16 Pulse 80 09/17/22 11:40 Resp 13 09/17/22 08:08 BP 119/57 09/17/22 07:16 Pulse Ox 94 L 09/17/22 08:34 FiO2 Intake & Output 09/16/22 09/17/22 09/17/22 18:59 06:59 18:59 Intake Total 400 Output Total 250 Balance 400 -250 Intake: Oral 400 Output: Urine 250 Other: Voiding Method Urinal Urinal Toilet Urinal # Voids 1 575 - Labs CBC & Chem 7: 09/16/22 06:15 09/17/22 06:12 Labs: Abnormal Lab Results - Last 24 Hours (Table) 09/16/22 09/16/22 09/17/22 Range/Units 06:15 17:07 01:05 Immature Gran # 0.10 H (0.00-0.04) X 10*3/uL D-Dimer 5.05 H (<0.60) mg/L FEU Est GFR (CKD-EPI)NonAf (60.0-200.0) Glucose (70-110) mg/dL POC Glucose (mg/dL) 131 H (70-110) mg/dL Conjugated Bilirubin (0.20-0.40) mg/dL AST (14-35) U/L ALT (10-49) U/L Creatine Kinase (35-257) U/L Total Protein (6.2-8.2) g/dL Albumin (3.8-4.9) g/dL Albumin/Globulin Ratio (1.60-3.17) g/dL 09/17/22 09/17/22 Range/Units 06:12 11:11 Immature Gran # (0.00-0.04) X 10*3/uL D-Dimer (<0.60) mg/L FEU Est GFR (CKD-EPI)NonAf 56.7 L (60.0-200.0) Glucose 147 H (70-110) mg/dL POC Glucose (mg/dL) 155 H (70-110) mg/dL Conjugated Bilirubin <0.20 L (0.20-0.40) mg/dL AST 126 H (14-35) U/L ALT 188 H (10-49) U/L Creatine Kinase 748 H (35-257) U/L Total Protein 6.0 L (6.2-8.2) g/dL Albumin 3.1 L (3.8-4.9) g/dL Albumin/Globulin Ratio 1.07 L (1.60-3.17) g/dL Assessment and Plan Plan: Assessment: 1. Acute kidney injury secondary to ATN secondary to rhabdomyolysis. Renal function stable. Creatinine 1.2. Kidney ultrasound from July 2022 showed no evidence of hydronephrosis. 2. Status post fall. No acute fracture noted. 3. 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 4. Hypertension with chronic kidney disease. Stable. 5. Rhabdomyolysis. CK levels trending down. 6. Hypokalemia from poor intake. Magnesium normal. 7. Viral pneumonia being followed by pulmonary. Plan: Remains off IV fluids. Preserved ejection fraction. Avoid nephrotoxins. Continue to monitor renal function and urine output. Encourage oral intake
--- NOTE | 2022-09-17 12:55 | P.PN ---
Subjective This is a pleasant 87 years old male with multiple medical problems as below. Presents because he was found on the floor for 24 hours when the family felt to get hold of him. He'll patient states that he got up from his bed and he felt very weak and fell on the ground, and then he got up again filled 1 more time and he was in the floor for 24 hours before family could find him. Patient somewhat tachypneic and is complaining of from cough with little yellow phlegm. 2 days ago his complaint of from severe left sided chest pain that lasted for 3 hours, currently he denies any chest pain. He denies any headache or dizziness or weakness or numbness. No urgency or dysuria. No abdominal pain or vomiting or diarrhea. as per family patient has stage IV kidney disease and he follow-up with Dr. Woods he has an outside clinic Pt presents to ED today for complaint of fall on . The pt was found today by family on the floor. PT has abasion noted to forehead. Pt denie LOC or thinners. Pt denies injury from fall. Following without losing consciousness Vitas looks stable Has unremarkable CBC and INR Creatinine is elevated at 1.7, unknown baseline Elevated liver enzymes AST 752 and a 50-69 with [place] [address] Elevated troponin 0.09 Lipase normal urinalysis showing 2+ protein and large blood and bone urine RBC less than 1 CT of the head and neck: No acute process, no fracture or dislocation Chest x-ray: No acute process Pelvic x-ray: No acute process Left knee process also no acute process but there is pre-patellar soft tissue edema EKG showing sinus rhythm at 89 with QTC 4:30 with moderate interventricular conduction delay In the emergency room patient received several doses of normal saline boluses Admitted with paint mixer hand team consult 09/15/2022 Patient less generalized pain. Denies chest pain. And his rhabdomyolysis is improving with creatinine kinase trending down to 5336. Creatinine back to the reference range on 1.2. However patient is mildly tachypneic today, chest x-ray is ordered Patient remains on gentle hydration, we added Norvasc for better blood pressure control with close monitoring Troponin are not related to cardiac disease and cardiology signed off. 09/16/2022 Patient still awake, denies chest pain is still mildly tachypneic, he has wheezing although it is felt to be coming from the airway but there is some competence of bronchospasm. Patient may benefit from steroids and also there's elements of bilateral pneumonia secondary to RSV to viral infection however bacterial cannot be entirely excluded, procalcitonin is mildly elevated at 0.25 patient might benefit from antibiotics, we will defer management to pulmonary team were consulted. Currently he is saturating 93% on room air Elected patient has CHF. ProBNP is not elevated significantly. Creatinine stable at 1.2 and creatinine kinase coming down to 105. Patient remains on gentle hydration normal saline 50 mL/h The first chemo on the case 09/17/2012 Patient lying in bed comfortable he denies any pain no dizziness, no dyspnea. No other new complaints. His vital showing oxygen saturation 94% on 2 L oxygen via nasal cannula, oxygen may slightly got worse. Chest x-ray showing bilateral infiltrate thought secondary to RSV pneumonia however bacterial component cannot be entirely excluded. procalcitonin is borderline elevated at 0.4 Pulmonary team on the case and they started patient on Solu-Medrol for tobacco twice daily and ceftriaxone since yesterday. Further pulmonary workup is deferred for pulmonary team Patient remains on oral Bumex, Norvasc for better blood pressure control and no iv fluids today. Objective - Vital Signs Vital signs: Vital Signs Temp 97.9 F 09/17/22 07:16 Pulse 88 09/17/22 08:47 Resp 13 09/17/22 07:16 BP 119/57 09/17/22 07:16 Pulse Ox 94 L 09/17/22 08:34 FiO2 Intake & Output 09/16/22 09/17/22 09/17/22 18:59 06:59 18:59 Intake Total 400 Output Total 250 Balance 400 -250 Intake: Oral 400 Output: Urine 250 Other: Voiding Method Urinal Urinal # Voids 1 575 - Exam GENERAL: The patient is alert and oriented x3, not in any acute distress. Well d eveloped, well nourished. HEENT: Pupils are round and equally reacting to light. EOMI. No scleral icterus. No conjunctival pallor. Normocephalic, atraumatic. No pharyngeal erythema. No thyromegaly. CARDIOVASCULAR: S1 and S2 present. No murmurs, rubs, or gallops. PULMONARY: Chest is clear to auscultation, no wheezing or crackles. ABDOMEN: Soft, nontender, nondistended, normoactive bowel sounds. No palpable organomegaly. MUSCULOSKELETAL: No joint swelling or deformity. EXTREMITIES: No cyanosis, clubbing, or pedal edema. NEUROLOGICAL: Gross neurological examination did not reveal any focal deficits. SKIN: No rashes. no petechiae. - Labs CBC & Chem 7: 09/16/22 06:15 09/17/22 06:12 Labs: Abnormal Lab Results - Last 24 Hours (Table) 09/16/22 09/16/22 09/16/22 Range/Units 06:15 06:15 06:15 Immature Gran # 0.10 H (0.00-0.04) X 10*3/uL D-Dimer (<0.60) mg/L FEU Potassium 3.4 L (3.5-5.5) mmol/L Est GFR (CKD-EPI)NonAf 54.4 L (60.0-200.0) Glucose (70-110) mg/dL POC Glucose (mg/dL) (70-110) mg/dL Calcium 8.6 L (8.7-10.3) mg/dL Conjugated Bilirubin (0.20-0.40) mg/dL AST 235 H (14-35) U/L ALT 210 H (10-49) U/L Creatine Kinase 2105 H* (35-257) U/L Total Protein 5.9 L (6.2-8.2) g/dL Albumin 3.2 L (3.8-4.9) g/dL Albumin/Globulin Ratio 1.18 L (1.60-3.17) g/dL Procalcitonin 0.24 H (0.02-0.09) ng/mL 09/16/22 09/17/22 09/17/22 Range/Units 17:07 01:05 06:12 Immature Gran # (0.00-0.04) X 10*3/uL D-Dimer 5.05 H (<0.60) mg/L FEU Potassium (3.5-5.5) mmol/L Est GFR (CKD-EPI)NonAf 56.7 L (60.0-200.0) Glucose 147 H (70-110) mg/dL POC Glucose (mg/dL) 131 H (70-110) mg/dL Calcium (8.7-10.3) mg/dL Conjugated Bilirubin <0.20 L (0.20-0.40) mg/dL AST 126 H (14-35) U/L ALT 188 H (10-49) U/L Creatine Kinase 748 H (35-257) U/L Total Protein 6.0 L (6.2-8.2) g/dL Albumin 3.1 L (3.8-4.9) g/dL Albumin/Globulin Ratio 1.07 L (1.60-3.17) g/dL Procalcitonin (0.02-0.09) ng/mL Assessment and Plan Assessment: rhabdomyolysis, improving Acute kidney injury improving Bilateral pneumonia secondary to RSV, posterior component cannot be ruled out entirely Some elements of the active bronchospasm and to bronchitis, versus COPD exacerbation elevated tropoin , could be troponin leak from did not supply mismatch and kidney injury, cardiac disease ruled out Transaminitis, related to rhabdomyolysis Hematuria (no RBC ) and proteinuria COPD Hyperlipidemia Hypertension Remote history of cancer 15-20 years ago Plan: Patient profile fluid Follow-up kidney function and creatinine kinase (improving significantly) Pulmonary team consult is appreciated, patient was started on Rocephin and Solu- Medrol. Further pulmonary workup is deferred to pulmonary team Plant Assigner team consult Care Services Manager signed off the case Labs and medication were reviewed.. Continue same treatment. Continue with symptomatic treatment. Resume home medication. Monitor lytes and vitals. DVT and GI prophylaxis. Further recommendations as per clinical course of the patient DVT prophylaxis: Subcutaneous heparin GI Prophylaxis: Pepcid PT/OT: Pending Prognosis is guarded
[2022-09-17] MEDS: INSULIN ASPART (NovoLOG) 100 UNIT/ML VIAL SQ SCH ×3 (13:17→21:21)
[2022-09-17 16:03] LABS: Glucose,Whole Blood 200 mg/dL (70-110)
[2022-09-17 19:46] LABS: Glucose,Whole Blood 205 mg/dL (70-110)
[2022-09-17] MEDS: FAMOTIDINE 20 MG TAB PO SCH (21:21)
[2022-09-17] MEDS: PRAZOSIN 1 MG CAP PO SCH (21:21)
[2022-09-17] MEDS: MAGNESIUM OXIDE 400 MG TAB PO SCH (21:21)
[2022-09-17] MEDS: MONTELUKAST 10 MG TAB PO SCH (21:21)
[2022-09-18 06:02] LABS: Glucose,Whole Blood 174 mg/dL (70-110)
[2022-09-18] MEDS: INSULIN ASPART (NovoLOG) 100 UNIT/ML VIAL SQ SCH ×4 (06:33→21:36)
[2022-09-18] MEDS: IPRATROPIUM-ALBUTEROL 3 ML NEB INHALATION SCH ×4 (08:08→21:17)
[2022-09-18] MEDS: VIT A,C & E-LUTEIN-MINERALS 1 EACH TAB PO SCH ×2 (09:37→21:36)
[2022-09-18] MEDS: methylPREDNISolone SOD SUCCI 40 MG/ML 1 ML VIAL IV SCH ×2 (09:37→21:36)
[2022-09-18] MEDS: HEPARIN SODIUM,PORCINE/PF 5,000 UNIT/0.5 ML SYRINGE SQ SCH ×2 (09:38→21:36)
[2022-09-18] MEDS: ASCORBIC ACID 500 MG TAB PO SCH (09:38)
[2022-09-18] MEDS: CHOLECALCIFEROL 25 MCG (1000 IU) TABLET PO SCH (09:38)
[2022-09-18] MEDS: amLODIPine 5 MG TAB PO SCH (09:38)
[2022-09-18] MEDS: ATORVASTATIN 20 MG TAB PO SCH (09:38)
[2022-09-18 10:39] LABS: Basophils # (A) 0.03 X 10*3/uL (0.00-0.10); Basophils % (A) 0.2 %; Eosinophils # (A) 0 X 10*3/uL (0.04-0.35); Eosinophils % (A) 0 %; HCT 36.2 % (39.6-50.0); HGB 12.2 g/dL (13.0-17.0); Immature Grans, Automated 1.7 %; Lymphocytes # (A) 0.88 X 10*3/uL (0.90-5.00); Lymphocytes % (A) 5.2 %; MCH 32.4 pg (27.0-32.0); MCHC 33.7 g/dL (32.0-37.0); Mean Platelet Volume 10.1 fL (9.5-12.2); Monocytes # (A) 0.69 X 10*3/uL (0.20-1.00); Monocytes % (A) 4.1 %; NRBC Per 100 WBC 0 /100 WBCS (0.0-0.0); Neutrophils # (A) 14.97 X 10*3/uL (1.80-7.70); Neutrophils % (A) 88.8 %; Platelet Count 317 X 10*3/uL (140-440); RBC 3.77 X 10*6/uL (4.40-5.60); WBC 16.85 X 10*3/uL (4.50-10.00)
[2022-09-18 10:49] LABS: African American GFR (CKD) 57.3 (60.0-200.0); Anion Gap 10.7 mmol/L (10.00-18.00); BUN/Creat Ratio 20.38 Ratio (12.00-20.00); Blood Urea Nitrogen 26.5 mg/dL (9.0-27.0); Carbon Dioxide 25.3 mmol/L (20.0-27.5); Non-African American GFR(CKD) 49.4 (60.0-200.0); Potassium 3.9 mmol/L (3.5-5.5)
[2022-09-18 11:52] LABS: Glucose,Whole Blood 172 mg/dL (70-110)
--- NOTE | 2022-09-18 11:56 | P.PN ---
Subjective Patient is seen in follow-up for acute kidney injury and chronic kidney disease. Renal function stable. Has been voiding. Denies chest pain or shortness of breath. Blood pressure stable. Sitting up in chair. Vital signs are stable. General: No acute distress. HEENT: Head exam is unremarkable. LUNGS: Breath sounds decreased. HEART: Rate and Rhythm are regular. ABDOMEN: Soft, no distention. EXTREMITITES: No edema. Objective - Vital Signs Vital signs: Vital Signs Temp 98.0 F 09/18/22 08:00 Pulse 81 09/18/22 11:51 Resp 18 09/18/22 08:00 BP 150/66 09/18/22 08:00 Pulse Ox 92 L 09/18/22 08:11 FiO2 Intake & Output 09/17/22 09/18/22 09/18/22 18:59 06:59 18:59 Intake Total 650 Balance 650 Intake: Oral 650 Other: Voiding Method Toilet Toilet Urinal # Voids 2 4 - Labs CBC & Chem 7: 09/18/22 06:47 09/18/22 06:47 Labs: Abnormal Lab Results - Last 24 Hours (Table) 09/17/22 09/17/22 09/18/22 Range/Units 16:02 19:44 06:01 WBC (4.50-10.00) X 10*3/uL RBC (4.40-5.60) X 10*6/uL Hgb (13.0-17.0) g/dL Hct (39.6-50.0) % MCH (27.0-32.0) pg Immature Gran # (0.00-0.04) X 10*3/uL Neutrophils # (1.80-7.70) X 10*3/uL Lymphocytes # (0.90-5.00) X 10*3/uL Eosinophils # (0.04-0.35) X 10*3/uL Est GFR (CKD-EPI)AfAm (60.0-200.0) Est GFR (CKD-EPI)NonAf (60.0-200.0) BUN/Creatinine Ratio (12.00-20.00) Ratio Glucose (70-110) mg/dL POC Glucose (mg/dL) 200 H 205 H 174 H (70-110) mg/dL 09/18/22 09/18/22 09/18/22 Range/Units 06:47 06:47 11:51 WBC 16.85 H (4.50-10.00) X 10*3/uL RBC 3.77 L (4.40-5.60) X 10*6/uL Hgb 12.2 L (13.0-17.0) g/dL Hct 36.2 L (39.6-50.0) % MCH 32.4 H (27.0-32.0) pg Immature Gran # 0.28 H (0.00-0.04) X 10*3/uL Neutrophils # 14.97 H (1.80-7.70) X 10*3/uL Lymphocytes # 0.88 L (0.90-5.00) X 10*3/uL Eosinophils # 0 L (0.04-0.35) X 10*3/uL Est GFR (CKD-EPI)AfAm 57.3 L (60.0-200.0) Est GFR (CKD-EPI)NonAf 49.4 L (60.0-200.0) BUN/Creatinine Ratio 20.38 H (12.00-20.00) Ratio Glucose 157 H (70-110) mg/dL POC Glucose (mg/dL) 172 H (70-110) mg/dL Assessment and Plan Plan: Assessment: 1. Acute kidney injury secondary to ATN secondary to rhabdomyolysis. Renal function stable. Creatinine 1.3. Kidney ultrasound from July 2022 showed no evidence of hydronephrosis. 2. Status post fall. No acute fracture noted. 3. 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 4. Hypertension with chronic kidney disease. Stable. 5. Rhabdomyolysis. CK levels trending down. 6. Hypokalemia from poor intake. Magnesium normal. 7. Viral pneumonia being followed by pulmonary. 8. Chronic kidney disease mineral bone disease maintained on calcitriol. Plan: Remains off IV fluids. Preserved ejection fraction. Avoid nephrotoxins. Continue to monitor renal function and urine output. Encourage oral intake. Follow up outpatient 1 week post discharge.
[2022-09-18] MEDS: ACETAMINOPHEN TAB 325 MG TAB PO PRN (12:08)
[2022-09-18 13:09] VITALS: BMI 25.1
[2022-09-18 16:55] LABS: Glucose,Whole Blood 161 mg/dL (70-110)
[2022-09-18 20:09] LABS: Glucose,Whole Blood 174 mg/dL (70-110)
--- NOTE | 2022-09-18 20:39 | P.PN ---
Subjective Progress Note Date: 09/18/22 87 years old male with multiple medical problems as below. Presents because he was found on the floor for 24 hours when the family felt to get hold of him. He'll patient states that he got up from his bed and he felt very weak and fell on the ground, and then he got up again filled 1 more time and he was in the floor for 24 hours before family could find him. Patient somewhat tachypneic and is complaining of from cough with little yellow phlegm. 2 days ago his complaint of from severe left sided chest pain that lasted for 3 hours, currently he denies any chest pain. He denies any headache or dizziness or weakness or numbness. No urgency or dysuria. No abdominal pain or vomiting or diarrhea. as per family patient has stage IV kidney disease and he follow-up with Dr. Woods he has an outside clinic Pt presents to ED today for complaint of fall on . The pt was found today by family on the floor. PT has abasion noted to forehead. Pt denie LOC or thinners. Pt denies injury from fall. Following without losing consciousness Objective - Vital Signs Vital signs: Vital Signs Temp 98.0 F 09/18/22 08:00 Pulse 81 09/18/22 11:51 Resp 18 09/18/22 08:00 BP 150/66 09/18/22 08:00 Pulse Ox 92 L 09/18/22 08:11 FiO2 Intake & Output 09/17/22 09/18/22 09/18/22 18:59 06:59 18:59 Intake Total 650 Balance 650 Weight 79.379 kg Intake: Oral 650 Other: Voiding Method Toilet Toilet Urinal # Voids 2 4 - Exam GENERAL: The patient is alert and oriented x3, not in any acute distress. Well developed, well nourished. HEENT: Pupils are round and equally reacting to light. EOMI. No scleral icterus. No conjunctival pallor. Normocephalic, atraumatic. No pharyngeal erythema. No thyromegaly. CARDIOVASCULAR: S1 and S2 present. No murmurs, rubs, or gallops. PULMONARY: Chest is clear to auscultation, no wheezing or crackles. ABDOMEN: Soft, nontender, nondistended, normoactive bowel sounds. No palpable organomegaly. MUSCULOSKELETAL: No joint swelling or deformity. EXTREMITIES: No cyanosis, clubbing, or pedal edema. NEUROLOGICAL: Gross neurological examination did not reveal any focal deficits. SKIN: No rashes. no petechiae. - Labs CBC & Chem 7: 09/18/22 06:47 09/18/22 06:47 Labs: Abnormal Lab Results - Last 24 Hours (Table) 09/17/22 09/17/22 09/18/22 Range/Units 16:02 19:44 06:01 WBC (4.50-10.00) X 10*3/uL RBC (4.40-5.60) X 10*6/uL Hgb (13.0-17.0) g/dL Hct (39.6-50.0) % MCH (27.0-32.0) pg Immature Gran # (0.00-0.04) X 10*3/uL Neutrophils # (1.80-7.70) X 10*3/uL Lymphocytes # (0.90-5.00) X 10*3/uL Eosinophils # (0.04-0.35) X 10*3/uL Est GFR (CKD-EPI)AfAm (60.0-200.0) Est GFR (CKD-EPI)NonAf (60.0-200.0) BUN/Creatinine Ratio (12.00-20.00) Ratio Glucose (70-110) mg/dL POC Glucose (mg/dL) 200 H 205 H 174 H (70-110) mg/dL 09/18/22 09/18/22 09/18/22 Range/Units 06:47 06:47 11:51 WBC 16.85 H (4.50-10.00) X 10*3/uL RBC 3.77 L (4.40-5.60) X 10*6/uL Hgb 12.2 L (13.0-17.0) g/dL Hct 36.2 L (39.6-50.0) % MCH 32.4 H (27.0-32.0) pg Immature Gran # 0.28 H (0.00-0.04) X 10*3/uL Neutrophils # 14.97 H (1.80-7.70) X 10*3/uL Lymphocytes # 0.88 L (0.90-5.00) X 10*3/uL Eosinophils # 0 L (0.04-0.35) X 10*3/uL Est GFR (CKD-EPI)AfAm 57.3 L (60.0-200.0) Est GFR (CKD-EPI)NonAf 49.4 L (60.0-200.0) BUN/Creatinine Ratio 20.38 H (12.00-20.00) Ratio Glucose 157 H (70-110) mg/dL POC Glucose (mg/dL) 172 H (70-110) mg/dL Assessment and Plan Assessment: rhabdomyolysis, improving Acute kidney injury improving Bilateral pneumonia secondary to RSV, posterior component cannot be ruled out entirely Some elements of the active bronchospasm and to bronchitis, versus COPD exacerbation elevated tropoin , could be troponin leak from did not supply mismatch and kidney injury, cardiac disease ruled out Transaminitis, related to rhabdomyolysis Hematuria (no RBC ) and proteinuria COPD Hyperlipidemia Hypertension Remote history of cancer 15-20 years ago Plan: Patient profile fluid Follow-up kidney function and creatinine kinase (improving significantly) Pulmonary team consult is appreciated, patient was started on Rocephin and Solu- Medrol. Further pulmonary workup is deferred to pulmonary team [employer] Developer team consult Retail Director signed off the case Labs and medication were reviewed.. Continue same treatment. Continue with symptomatic treatment. Resume home medication. Monitor lytes and vitals. DVT and GI prophylaxis. Further recommendations as per clinical course of the patient DVT prophylaxis: Subcutaneous heparin GI Prophylaxis: Pepcid PT/OT: Pending Prognosis is guarded
[2022-09-18] MEDS: MONTELUKAST 10 MG TAB PO SCH (21:36)
[2022-09-18] MEDS: MAGNESIUM OXIDE 400 MG TAB PO SCH (21:36)
[2022-09-18] MEDS: FAMOTIDINE 20 MG TAB PO SCH (21:36)
[2022-09-18] MEDS: PRAZOSIN 1 MG CAP PO SCH (21:37)
[2022-09-19 06:20] LABS: Glucose,Whole Blood 283 mg/dL (70-110)
[2022-09-19] MEDS: INSULIN ASPART (NovoLOG) 100 UNIT/ML VIAL SQ SCH ×4 (06:27→21:41)
[2022-09-19] MEDS: IPRATROPIUM-ALBUTEROL 3 ML NEB INHALATION SCH ×4 (08:49→20:02)
[2022-09-19] MEDS: VIT A,C & E-LUTEIN-MINERALS 1 EACH TAB PO SCH ×2 (10:54→21:40)
[2022-09-19] MEDS: CHOLECALCIFEROL 25 MCG (1000 IU) TABLET PO SCH (10:55)
[2022-09-19] MEDS: ATORVASTATIN 20 MG TAB PO SCH (10:55)
[2022-09-19] MEDS: HEPARIN SODIUM,PORCINE/PF 5,000 UNIT/0.5 ML SYRINGE SQ SCH ×2 (10:55→21:41)
[2022-09-19] MEDS: amLODIPine 5 MG TAB PO SCH (10:55)
[2022-09-19] MEDS: ASCORBIC ACID 500 MG TAB PO SCH (10:55)
[2022-09-19] MEDS: methylPREDNISolone SOD SUCCI 40 MG/ML 1 ML VIAL IV SCH ×2 (10:55→21:40)
--- NOTE | 2022-09-19 11:03 | P.PN ---
Subjective Patient is seen in follow-up for acute kidney injury and chronic kidney disease. Renal function stable as of yesterday. Has been voiding. Denies chest pain or shortness of breath. Blood pressure stable. Vital signs are stable. General: No acute distress. HEENT: Head exam is unremarkable. LUNGS: Breath sounds decreased. HEART: Rate and Rhythm are regular. ABDOMEN: Soft, no distention. EXTREMITITES: No edema. Objective - Vital Signs Vital signs: Vital Signs Temp 97.4 F L 09/19/22 08:00 Pulse 76 09/19/22 09:00 Resp 18 09/19/22 08:00 BP 108/61 09/19/22 08:00 Pulse Ox 95 09/19/22 08:00 FiO2 Intake & Output 09/18/22 09/19/22 09/19/22 18:59 06:59 18:59 Weight 79.379 kg Other: Voiding Method Toilet Toilet # Voids 6 4 - Labs CBC & Chem 7: 09/18/22 06:47 09/18/22 06:47 Labs: Abnormal Lab Results - Last 24 Hours (Table) 09/18/22 09/18/22 09/18/22 Range/Units 11:51 16:53 20:08 POC Glucose (mg/dL) 172 H 161 H 174 H (70-110) mg/dL Creatine Kinase (55-170) U/L 09/19/22 09/19/22 Range/Units 06:18 06:31 POC Glucose (mg/dL) 283 H (70-110) mg/dL Creatine Kinase 240 H (55-170) U/L Assessment and Plan Plan: Assessment: 1. Acute kidney injury secondary to ATN secondary to rhabdomyolysis. Renal function stable. Creatinine 1.3 yesterday. Kidney ultrasound from July 2022 showed no evidence of hydronephrosis. 2. Status post fall. No acute fracture noted. 3. 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 4. Hypertension with chronic kidney disease. Stable. 5. Rhabdomyolysis. CK levels trending down. 6. Hypokalemia from poor intake. Magnesium normal. 7. Viral pneumonia being followed by pulmonary. 8. Chronic kidney disease mineral bone disease maintained on calcitriol. Plan: Remains off IV fluids. Preserved ejection fraction. Avoid nephrotoxins. Continue to monitor renal function and urine output. Encourage oral intake. Follow up outpatient 1 week post discharge.
[2022-09-19 11:25] LABS: Glucose,Whole Blood 185 mg/dL (70-110)
--- NOTE | 2022-09-19 14:05 | P.PN ---
Subjective Progress Note Date: 09/17/22 Principal diagnosis: Acute pneumonia primarily related to RSV virus however secondary pneumonia cannot be excluded Acute hypoxic respiratory failure due to above Acute rhabdomyolysis and acute kidney injury Elevated liver enzymes Status post fall 09/17/2022 patient seen eval reexamined, remains on 2 L oxygen, slightly short of breath, chest x-ray stable, patient is being monitor observe for RSV pneumonia bacterial component cannot be excluded, patient is on broad-spectrum antibiotics and IV steroids tolerating well and remains on diuretics Patient is a 87-year-old male with the multiple complex past medical history brought into emergency department as he was found on the floor for over 24 hours patient felt that he was very weak and fell down on the ground family found him and brought into the hospital for further evaluation, on arrival he was tachypneic tachycardic as ongoing cough with yellowish sputum production, patient isn't having left-sided intermittent pleuritic chest pain significant labs include creatinine of 1.7 with unknown baseline, LFTs were elevated with AST of 752. CK is over 23,000, troponin was 0.09, lipase normal, urine analysis +2 protein and large blood, computed tomography scan of the head and neck no acute process seen, chest x-ray was unremarkable, his pelvic x-ray also unremarkable, EKG shows sinus rhythm with rate of 89 patient post admission rehydrated, also with bronchodilator continuation of home medications and his echocardiogram performed 2 days ago LVH was preserved systolic function, aortic stenosis not seen by some sclerosis was identified, chest x-ray yesterday shows bilateral interstitial and patchy opacities slightly progressed compared to September 13 exam suggestive of the ongoing infectious etiology. Labs today reviewed white cell count is 8.7, hemoglobin is 12.5, platelet count of the 254, sodium is 1:30 and impression 3.4, BUN/creatinine improved to 17.3/1.2 AST and ALT were 235/210 total CK came down to 2105, pro culture nares 0.2, RSV is positive however: Weight 19 as well as influenza A and B were negative Objective - Vital Signs Vital signs: Vital Signs Temp 97.4 F L 09/17/22 13:55 Pulse 104 H 09/17/22 13:55 Resp 15 09/17/22 13:55 BP 111/57 09/17/22 13:55 Pulse Ox 91 L 09/17/22 13:55 FiO2 Intake & Output 09/16/22 09/17/22 09/17/22 18:59 06:59 18:59 Intake Total 400 Output Total 250 Balance 400 -250 Intake: Oral 400 Output: Urine 250 Other: Voiding Method Urinal Urinal Toilet Urinal # Voids 1 575 - Exam - Constitutional General appearance: average body habitus, cooperative, disheveled - EENT Eyes: EOMI, PERRLA Ears: bilateral: normal - Neck Neck: normal ROM Carotids: bilateral: upstroke normal - Respiratory Respiratory: bilateral: wheezing - Cardiovascular Rhythm: regular Heart sounds: normal: S1, S2 - Gastrointestinal General gastrointestinal: normal bowel sounds, soft - Integumentary Integumentary: normal turgor - Neurologic Neurologic: CNII-XII intact - Musculoskeletal Musculoskeletal: gait normal, generalized weakness, strength equal bilaterally - Psychiatric Psychiatric: A&O x's 3, appropriate affect, intact judgment & insight - Labs CBC & Chem 7: 09/18/22 06:47 09/18/22 06:47 Labs: Abnormal Lab Results - Last 24 Hours (Table) 09/16/22 09/17/22 09/17/22 Range/Units 17:07 01:05 06:12 D-Dimer 5.05 H (<0.60) mg/L FEU Est GFR (CKD-EPI)NonAf 56.7 L (60.0-200.0) Glucose 147 H (70-110) mg/dL POC Glucose (mg/dL) 131 H (70-110) mg/dL Conjugated Bilirubin <0.20 L (0.20-0.40) mg/dL AST 126 H (14-35) U/L ALT 188 H (10-49) U/L Creatine Kinase 748 H (35-257) U/L Total Protein 6.0 L (6.2-8.2) g/dL Albumin 3.1 L (3.8-4.9) g/dL Albumin/Globulin Ratio 1.07 L (1.60-3.17) g/dL 09/17/22 Range/Units 11:11 D-Dimer (<0.60) mg/L FEU Est GFR (CKD-EPI)NonAf (60.0-200.0) Glucose (70-110) mg/dL POC Glucose (mg/dL) 155 H (70-110) mg/dL Conjugated Bilirubin (0.20-0.40) mg/dL AST (14-35) U/L ALT (10-49) U/L Creatine Kinase (35-257) U/L Total Protein (6.2-8.2) g/dL Albumin (3.8-4.9) g/dL Albumin/Globulin Ratio (1.60-3.17) g/dL Assessment and Plan Assessment: Acute pneumonia primarily related to RSV virus however secondary pneumonia cannot be excluded Acute hypoxic respiratory failure due to above Acute rhabdomyolysis and acute kidney injury Elevated liver enzymes Status post fall Plan: Continue to gently rehydrate Noted d-dimer elevated likely related to his ongoing inflammation, however thromboembolism cannot be excluded due to elevated creatinine and consider VQ scan and duplex ultrasound the lower extremity And broad-spectrum antibiotics IV steroids for airway inflammation for short duration Continue bronchodilators Further care plan as per clinical response of the patient Time with Patient: Greater than 30
--- NOTE | 2022-09-19 14:06 | P.PN ---
Subjective Progress Note Date: 09/19/22 Principal diagnosis: Acute pneumonia primarily related to RSV virus however secondary pneumonia cannot be excluded Acute hypoxic respiratory failure due to above Acute rhabdomyolysis and acute kidney injury Elevated liver enzymes Status post fall 09/19/2022, patient seen eval reexamined during the rounds labs reviewed medications reviewed care plan discussed family present at bedside, patient is afebrile 95% oxygen saturation on room air, she remains on bronchodilator IV steroids and broad-spectrum antibiotics tolerating well 09/17/2022 patient seen eval reexamined, remains on 2 L oxygen, slightly short of breath, chest x-ray stable, patient is being monitor observe for RSV pneumonia bacterial component cannot be excluded, patient is on broad-spectrum antibiotics and IV steroids tolerating well and remains on diuretics Patient is a 87-year-old male with the multiple complex past medical history brought into emergency department as he was found on the floor for over 24 hours patient felt that he was very weak and fell down on the ground family found him and brought into the hospital for further evaluation, on arrival he was tachypneic tachycardic as ongoing cough with yellowish sputum production, patient isn't having left-sided intermittent pleuritic chest pain significant labs include creatinine of 1.7 with unknown baseline, LFTs were elevated with AST of 752. CK is over 23,000, troponin was 0.09, lipase normal, urine analysis +2 protein and large blood, computed tomography scan of the head and neck no acute process seen, chest x-ray was unremarkable, his pelvic x-ray also unremarkable, EKG shows sinus rhythm with rate of 89 patient post admission rehydrated, also with bronchodilator continuation of home medications and his echocardiogram performed 2 days ago LVH was preserved systolic function, aortic stenosis not seen by some sclerosis was identified, chest x-ray yesterday shows bilateral interstitial and patchy opacities slightly progressed compared to September 13 exam suggestive of the ongoing infectious etiology. Labs today reviewed white cell count is 8.7, hemoglobin is 12.5, platelet count of the 254, sodium is 1:30 and impression 3.4, BUN/creatinine improved to 17.3/1.2 AST and ALT were 235/210 total CK came down to 2105, pro culture nares 0.2, RSV is positive however: Weight 19 as well as influenza A and B were negative Objective - Vital Signs Vital signs: Vital Signs Temp 97.4 F L 09/19/22 08:00 Pulse 96 09/19/22 12:14 Resp 18 09/19/22 08:00 BP 108/61 09/19/22 08:00 Pulse Ox 95 09/19/22 08:00 FiO2 Intake & Output 09/18/22 09/19/22 09/19/22 18:59 06:59 18:59 Weight 79.379 kg Other: Voiding Method Toilet Toilet Urinal # Voids 6 4 1 # Bowel Movements 1 - Exam - Constitutional General appearance: average body habitus, cooperative, disheveled - EENT Eyes: EOMI, PERRLA Ears: bilateral: normal - Neck Neck: normal ROM Carotids: bilateral: upstroke normal - Respiratory Respiratory: bilateral: wheezing - Cardiovascular Rhythm: regular Heart sounds: normal: S1, S2 - Gastrointestinal General gastrointestinal: normal bowel sounds, soft - Integumentary Integumentary: normal turgor - Neurologic Neurologic: CNII-XII intact - Musculoskeletal Musculoskeletal: gait normal, generalized weakness, strength equal bilaterally - Psychiatric Psychiatric: A&O x's 3, appropriate affect, intact judgment & insight - Labs CBC & Chem 7: 09/18/22 06:47 09/18/22 06:47 Labs: Abnormal Lab Results - Last 24 Hours (Table) 09/18/22 09/18/22 09/19/22 Range/Units 16:53 20:08 06:18 POC Glucose (mg/dL) 161 H 174 H 283 H (70-110) mg/dL Creatine Kinase (55-170) U/L 09/19/22 09/19/22 Range/Units 06:31 11:23 POC Glucose (mg/dL) 185 H (70-110) mg/dL Creatine Kinase 240 H (55-170) U/L Assessment and Plan Assessment: Acute pneumonia primarily related to RSV virus however secondary pneumonia cannot be excluded Acute hypoxic respiratory failure due to above Acute rhabdomyolysis and acute kidney injury Elevated liver enzymes Status post fall Plan: Continue to gently rehydrate Noted d-dimer elevated likely related to his ongoing inflammation, however thromboembolism cannot be excluded due to elevated creatinine and consider VQ scan and duplex ultrasound the lower extremity, noted that there were not ordered we will order them And broad-spectrum antibiotics IV steroids for airway inflammation for short duration Continue bronchodilators Further care plan as per clinical response of the patient Time with Patient: Greater than 30
[2022-09-19 16:36] LABS: Glucose,Whole Blood 211 mg/dL (70-110)
--- NOTE | 2022-09-19 18:54 | P.PN ---
Subjective Progress Note Date: 09/19/22 Principal diagnosis: Acute renal injury Acute rhabdomyolysis Bilateral pneumonia secondary to RSV Elevated troponin 87 years old male with multiple medical problems as below. Presents because he was found on the floor for 24 hours when the family felt to get hold of him. He'll patient states that he got up from his bed and he felt very weak and fell on the ground, and then he got up again filled 1 more time and he was in the floor for 24 hours before family could find him. Patient somewhat tachypneic and is complaining of from cough with little yellow phlegm. 2 days ago his complaint of from severe left sided chest pain that lasted for 3 hours, currently he denies any chest pain. He denies any headache or dizziness or weakness or numbness. No urgency or dysuria. No abdominal pain or vomiting or diarrhea. as per family patient has stage IV kidney disease and he follow-up with Dr. Woods he has an outside clinic Pt presents to ED today for complaint of fall on . The pt was found today by family on the floor. PT has abasion noted to forehead. Pt denie LOC or thinners. Pt denies injury from fall. Following without losing consciousness 09/19/2022 Patient is seen and evaluated in room at bedside, patient is afebrile 95% oxygen saturation on room air, she remains on bronchodilator IV steroids and broad- spectrum antibiotics tolerating well Continue with IV fluids; monitor renal function and electrolytes -- His scan ordered and pending to rule out PE Objective - Vital Signs Vital signs: Vital Signs Temp 97.4 F L 09/19/22 08:00 Pulse 96 09/19/22 12:14 Resp 18 09/19/22 08:00 BP 108/61 09/19/22 08:00 Pulse Ox 95 09/19/22 08:00 FiO2 Intake & Output 09/18/22 09/19/22 09/19/22 18:59 06:59 18:59 Weight 79.379 kg Other: Voiding Method Toilet Toilet Urinal # Voids 6 4 - Exam GENERAL: The patient is alert and oriented x3, not in any acute distress. Well developed, well nourished. HEENT: Pupils are round and equally reacting to light. EOMI. No scleral icterus. No conjunctival pallor. Normocephalic, atraumatic. No pharyngeal erythema. No thyromegaly. CARDIOVASCULAR: S1 and S2 present. No murmurs, rubs, or gallops. PULMONARY: Chest is clear to auscultation, no wheezing or crackles. ABDOMEN: Soft, nontender, nondistended, normoactive bowel sounds. No palpable organomegaly. MUSCULOSKELETAL: No joint swelling or deformity. EXTREMITIES: No cyanosis, clubbing, or pedal edema. NEUROLOGICAL: Gross neurological examination did not reveal any focal deficits. SKIN: No rashes. no petechiae. - Labs CBC & Chem 7: 09/18/22 06:47 09/18/22 06:47 Labs: Abnormal Lab Results - Last 24 Hours (Table) 09/18/22 09/18/22 09/19/22 Range/Units 16:53 20:08 06:18 POC Glucose (mg/dL) 161 H 174 H 283 H (70-110) mg/dL Creatine Kinase (55-170) U/L 09/19/22 09/19/22 Range/Units 06:31 11:23 POC Glucose (mg/dL) 185 H (70-110) mg/dL Creatine Kinase 240 H (55-170) U/L Assessment and Plan Assessment: rhabdomyolysis, improving Acute kidney injury improving Bilateral pneumonia secondary to RSV, posterior component cannot be ruled out entirely Some elements of the active bronchospasm and to bronchitis, versus COPD exacerbation elevated tropoin , could be troponin leak from did not supply mismatch and kidney injury, cardiac disease ruled out Transaminitis, related to rhabdomyolysis Hematuria (no RBC ) and proteinuria COPD Hyperlipidemia Hypertension Remote history of cancer 15-20 years ago Plan: Patient profile fluid Follow-up kidney function and creatinine kinase (improving significantly) Pulmonary team consult is appreciated, patient was started on Rocephin and Solu- Medrol. Further pulmonary workup is deferred to pulmonary team Garment [employer]er Hand team consult Manager Paid signed off the case Labs and medication were reviewed.. Continue same treatment. Continue with symptomatic treatment. Resume home medication. Monitor lytes and vitals. DVT and GI prophylaxis. Further recommendations as per clinical course of the patient DVT prophylaxis: Subcutaneous heparin GI Prophylaxis: Pepcid PT/OT: Pending Prognosis is guarded
[2022-09-19 21:17] LABS: Glucose,Whole Blood 152 mg/dL (70-110)
[2022-09-19] MEDS: MAGNESIUM OXIDE 400 MG TAB PO SCH (21:40)
[2022-09-19] MEDS: MELATONIN 5 MG TABLET PO SCH (21:40)
[2022-09-19] MEDS: FAMOTIDINE 20 MG TAB PO SCH (21:40)
[2022-09-19] MEDS: MONTELUKAST 10 MG TAB PO SCH (21:40)
[2022-09-19] MEDS: PRAZOSIN 1 MG CAP PO SCH (21:40)
--- NOTE | 2022-09-19 22:54 | US ---
EXAMINATION TYPE: US venous doppler duplex LE BI DATE OF EXAM: 09/19/2022 3:52 PM COMPARISON: NONE CLINICAL HISTORY: dvt. no swelling, no pain, RSV SIDE PERFORMED: Bilateral TECHNIQUE: The lower extremity deep venous system is examined utilizing real time linear array sonog gracy with graded compression, doppler sonography and color-flow sonography. VESSELS IMAGED: Common Femoral Vein Deep Femoral Vein Greater Saphenous Vein * Femoral Vein Popliteal Vein Small Saphenous Vein * Proximal Calf Veins (* superficial vessels) Right Leg: Negative for DVT Left Leg: Negative for DVT IMPRESSION: No evidence of deep vein thrombosis in the legs.
[2022-09-20 06:27] LABS: Glucose,Whole Blood 174 mg/dL (70-110)
--- NOTE | 2022-09-20 08:23 | NM ---
EXAMINATION TYPE: NM pul vent and perfuse DATE OF EXAM: 09/20/2022 COMPARISON: NONE HISTORY: pulmonary embolism TECHNIQUE: Utilizing inhalation of 38.7 mCi Tc 99m DTPA aerosol and intravenous injection of 5.2 mCi of Tc 99m MAA, ventilation and perfusion images are acquired post injection in multiple projections. FINDINGS: There is central accumulation of radiotracer on the ventilation portion of the study compatible with COPD. On the perfusion portion of the study and there are a few matched perfusion defects. No definit e mismatch defects seen. IMPRESSION: Low to intermediate probability for pulmonary embolism.
[2022-09-20] MEDS: IPRATROPIUM-ALBUTEROL 3 ML NEB INHALATION SCH ×4 (08:26→21:18)
[2022-09-20] MEDS: HEPARIN SODIUM,PORCINE/PF 5,000 UNIT/0.5 ML SYRINGE SQ SCH ×2 (08:44→20:59)
[2022-09-20] MEDS: CHOLECALCIFEROL 25 MCG (1000 IU) TABLET PO SCH (08:44)
[2022-09-20] MEDS: INSULIN ASPART (NovoLOG) 100 UNIT/ML VIAL SQ SCH ×4 (08:44→20:52)
[2022-09-20] MEDS: ASCORBIC ACID 500 MG TAB PO SCH (08:44)
[2022-09-20] MEDS: ATORVASTATIN 20 MG TAB PO SCH (08:45)
[2022-09-20] MEDS: VIT A,C & E-LUTEIN-MINERALS 1 EACH TAB PO SCH ×2 (08:45→20:59)
[2022-09-20] MEDS: amLODIPine 5 MG TAB PO SCH (08:45)
[2022-09-20] MEDS: methylPREDNISolone SOD SUCCI 40 MG/ML 1 ML VIAL IV SCH ×2 (09:31→20:59)
--- NOTE | 2022-09-20 10:54 | P.PN ---
Subjective Patient is seen in follow-up for acute kidney injury and chronic kidney disease. Creatinine 1.3 dated 09/18/2022. Has been voiding. Denies chest pain or shortness of breath. Blood pressure stable. Sitting up in chair. On room air. No active complaints. Vital signs are stable. General: No acute distress. HEENT: Head exam is unremarkable. LUNGS: Breath sounds decreased. HEART: Rate and Rhythm are regular. ABDOMEN: Soft, no distention. EXTREMITITES: No edema. Objective - Vital Signs Vital signs: Vital Signs Temp 98.4 F 09/20/22 07:58 Pulse 86 09/20/22 08:41 Resp 17 09/20/22 07:58 BP 148/76 09/20/22 07:58 Pulse Ox 90 L 09/20/22 07:58 FiO2 Intake & Output 09/19/22 09/20/22 09/20/22 18:59 06:59 18:59 Intake Total 250 Balance 250 Intake: Oral 250 Other: Voiding Method Urinal Urinal Toilet # Voids 3 5 # Bowel Movements 1 - Labs CBC & Chem 7: 09/18/22 06:47 09/18/22 06:47 Labs: Abnormal Lab Results - Last 24 Hours (Table) 09/19/22 09/19/22 09/19/22 Range/Units 11:23 16:34 21:15 POC Glucose (mg/dL) 185 H 211 H 152 H (70-110) mg/dL 09/20/22 Range/Units 06:26 POC Glucose (mg/dL) 174 H (70-110) mg/dL Assessment and Plan Plan: Assessment: 1. Acute kidney injury secondary to ATN secondary to rhabdomyolysis. Renal function stable. Creatinine 1.3 dated 09/18/2022. Kidney ultrasound from July 2022 showed no evidence of hydronephrosis. 2. Status post fall. No acute fracture noted. 3. 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 4. Hypertension with chronic kidney disease. Stable. 5. Rhabdomyolysis. CK levels trending down. 6. Hypokalemia from poor intake. Magnesium normal. 7. Viral pneumonia being followed by pulmonary. 8. Chronic kidney disease mineral bone disease maintained on calcitriol. Plan: Remains off IV fluids. Preserved ejection fraction. Avoid nephrotoxins. Continue to monitor renal function and urine output. Encourage oral intake. Follow up outpatient 1 week post discharge.
[2022-09-20 11:39] LABS: Glucose,Whole Blood 153 mg/dL (70-110)
[2022-09-20 16:44] LABS: Glucose,Whole Blood 235 mg/dL (70-110)
[2022-09-20 17:17] LABS: Basophils % (A) 0 %; Eosinophils % (A) 0 %; HCT 39.2 % (39.0-53.0); HGB 13.2 gm/dL (13.0-17.5); Lymphocytes # (A) 0.8 k/uL (1.0-4.8); Lymphocytes % (A) 4 %; MCH 32.4 pg (25.0-35.0); MCHC 33.6 g/dL (31.0-37.0); MCV 96.6 fL (80.0-100.0); Mean Platelet Volume 8.5; Monocytes # (A) 0.9 k/uL (0-1.0); Monocytes % (A) 5 %; Neutrophils # (A) 17.3 k/uL (1.3-7.7); Neutrophils % (A) 90 %; Platelet Count 349 k/uL (150-450); RBC 4.06 m/uL (4.30-5.90); RDW 11.7 % (11.5-15.5); WBC 19.3 k/uL (3.8-10.6)
[2022-09-20 17:30] LABS: Potassium 4.5 mmol/L (3.5-5.1)
[2022-09-20 17:31] LABS: African American GFR (CKD) 63 (>60 ml/min/1.73 sqM); Anion Gap 6 mmol/L; Blood Urea Nitrogen 40 mg/dL (9-20); Calcium 8.7 mg/dL (8.4-10.2); Carbon Dioxide 28 mmol/L (22-30); Chloride 102 mmol/L (98-107); Glucose 195 mg/dL (74-99); Non-African American GFR(CKD) 54 (>60 ml/min/1.73 sqM); Sodium 136 mmol/L (137-145)
--- NOTE | 2022-09-20 18:54 | P.PN ---
Subjective Progress Note Date: 09/20/22 Principal diagnosis: Acute renal injury Acute rhabdomyolysis Bilateral pneumonia secondary to RSV Elevated troponin 87 years old male with multiple medical problems as below. Presents because he was found on the floor for 24 hours when the family felt to get hold of him. He'll patient states that he got up from his bed and he felt very weak and fell on the ground, and then he got up again filled 1 more time and he was in the floor for 24 hours before family could find him. Patient somewhat tachypneic and is complaining of from cough with little yellow phlegm. 2 days ago his complaint of from severe left sided chest pain that lasted for 3 hours, currently he denies any chest pain. He denies any headache or dizziness or weakness or numbness. No urgency or dysuria. No abdominal pain or vomiting or diarrhea. as per family patient has stage IV kidney disease and he follow-up with Dr. Woods he has an outside clinic Pt presents to ED today for complaint of fall on . The pt was found today by family on the floor. PT has abasion noted to forehead. Pt denie LOC or thinners. Pt denies injury from fall. Following without losing consciousness 09/19/2022 Patient is seen and evaluated in room at bedside, patient is afebrile 95% oxygen saturation on room air, she remains on bronchodilator IV steroids and broad- spectrum antibiotics tolerating well Continue with IV fluids; monitor renal function and electrolytes -- His scan ordered and pending to rule out PE 09/20/2022 Patient is seen and evaluated in room at bedside; discussed with nursing staff; no specific complaints reported; patient has fair oral intake; denying any chest shortness of breath Vital signs are reviewed and stable with temperature of 98.4, pulse 86, respirations 17 and blood pressure 148/76 Patient remains on IV fluids for acute renal injury related to ATN secondary to rhabdomyolysis; we will plan to continue to avoid nephrotoxins; monitor strict YOVANA's and daily weights Objective - Vital Signs Vital signs: Vital Signs Temp 97.5 F L 09/20/22 14:00 Pulse 92 09/20/22 14:00 Resp 17 09/20/22 14:00 BP 114/53 09/20/22 14:00 Pulse Ox 94 L 09/20/22 14:00 FiO2 Intake & Output 09/19/22 09/20/2222 18:59 06:59 18:59 Intake Total 250 Balance 250 Intake: Oral 250 Other: Voiding Method Urinal Urinal Toilet # Voids 3 5 # Bowel Movements 1 - Exam GENERAL: The patient is alert and oriented x3, not in any acute distress. Well developed, well nourished. HEENT: Pupils are round and equally reacting to light. EOMI. No scleral icterus. No conjunctival pallor. Normocephalic, atraumatic. No pharyngeal erythema. No thyromegaly. CARDIOVASCULAR: S1 and S2 present. No murmurs, rubs, or gallops. PULMONARY: Chest is clear to auscultation, no wheezing or crackles. ABDOMEN: Soft, nontender, nondistended, normoactive bowel sounds. No palpable organomegaly. MUSCULOSKELETAL: No joint swelling or deformity. EXTREMITIES: No cyanosis, clubbing, or pedal edema. NEUROLOGICAL: Gross neurological examination did not reveal any focal deficits. SKIN: No rashes. no petechiae. - Labs CBC & Chem 7: 09/20/22 16:43 09/20/22 16:43 Labs: Abnormal Lab Results - Last 24 Hours (Table) 09/19/22 09/19/22 09/20/22 Range/Units 16:34 21:15 06:26 POC Glucose (mg/dL) 211 H 152 H 174 H (70-110) mg/dL 09/20/22 Range/Units 11:38 POC Glucose (mg/dL) 153 H (70-110) mg/dL Assessment and Plan Assessment: rhabdomyolysis, improving Acute kidney injury improving Bilateral pneumonia secondary to RSV, posterior component cannot be ruled out entirely Some elements of the active bronchospasm and to bronchitis, versus COPD exacerbation elevated tropoin , could be troponin leak from did not supply mismatch and kidney injury, cardiac disease ruled out Transaminitis, related to rhabdomyolysis Hematuria (no RBC ) and proteinuria COPD Hyperlipidemia Hypertension Remote history of cancer 15-20 years ago Plan: Patient profile fluid Follow-up kidney function and creatinine kinase (improving significantly) Pulmonary team consult is appreciated, patient was started on Rocephin and Solu- Medrol. Further pulmonary workup is deferred to pulmonary team Director Corporate team consult Principal Technical Architect signed off the case Labs and medication were reviewed.. Continue same treatment. Continue with symptomatic treatment. Resume home medication. Monitor lytes and vitals. DVT and GI prophylaxis. Further recommendations as per clinical course of the patient DVT prophylaxis: Subcutaneous heparin GI Prophylaxis: Pepcid PT/OT: Pending Prognosis is guarded
[2022-09-20 20:49] LABS: Glucose,Whole Blood 149 mg/dL (70-110)
[2022-09-20] MEDS: MONTELUKAST 10 MG TAB PO SCH (20:59)
[2022-09-20] MEDS: PRAZOSIN 1 MG CAP PO SCH (20:59)
[2022-09-20] MEDS: MAGNESIUM OXIDE 400 MG TAB PO SCH (20:59)
[2022-09-20] MEDS: FAMOTIDINE 20 MG TAB PO SCH (20:59)
[2022-09-20] MEDS: MELATONIN 5 MG TABLET PO SCH (20:59)
[2022-09-21 06:14] LABS: Glucose,Whole Blood 164 mg/dL (70-110)
[2022-09-21] MEDS: INSULIN ASPART (NovoLOG) 100 UNIT/ML VIAL SQ SCH ×4 (06:32→20:39)
[2022-09-21] MEDS: IPRATROPIUM-ALBUTEROL 3 ML NEB INHALATION SCH ×4 (08:34→19:22)
[2022-09-21 09:03] LABS: African American GFR (CKD) 57.3 (60.0-200.0); Anion Gap 9.8 mmol/L (10.00-18.00); BUN/Creat Ratio 28.92 Ratio (12.00-20.00); Blood Urea Nitrogen 37.6 mg/dL (9.0-27.0); Calcium 9.3 mg/dL (8.7-10.3); Carbon Dioxide 29.2 mmol/L (20.0-27.5); Magnesium 2.2 mg/dL (1.5-2.4); Non-African American GFR(CKD) 49.4 (60.0-200.0); Potassium 4.8 mmol/L (3.5-5.5)
[2022-09-21] MEDS: ASCORBIC ACID 500 MG TAB PO SCH (09:05)
[2022-09-21] MEDS: CHOLECALCIFEROL 25 MCG (1000 IU) TABLET PO SCH (09:06)
[2022-09-21] MEDS: methylPREDNISolone SOD SUCCI 40 MG/ML 1 ML VIAL IV SCH (09:06)
[2022-09-21] MEDS: ATORVASTATIN 20 MG TAB PO SCH (09:06)
[2022-09-21] MEDS: VIT A,C & E-LUTEIN-MINERALS 1 EACH TAB PO SCH ×2 (09:06→20:38)
[2022-09-21] MEDS: amLODIPine 5 MG TAB PO SCH (09:06)
[2022-09-21] MEDS: HEPARIN SODIUM,PORCINE/PF 5,000 UNIT/0.5 ML SYRINGE SQ SCH ×2 (09:07→20:38)
[2022-09-21 09:21] LABS: Basophils # (A) 0.04 X 10*3/uL (0.00-0.10); Basophils % (A) 0.2 %; Eosinophils # (A) 0 X 10*3/uL (0.04-0.35); Eosinophils % (A) 0 %; HCT 39.7 % (39.6-50.0); HGB 13.2 g/dL (13.0-17.0); Immature Grans, Automated 3.1 %; Lymphocytes # (A) 1.04 X 10*3/uL (0.90-5.00); Lymphocytes % (A) 5.5 %; MCH 32.9 pg (27.0-32.0); MCHC 33.2 g/dL (32.0-37.0); Mean Platelet Volume 10.5 fL (9.5-12.2); Monocytes # (A) 0.83 X 10*3/uL (0.20-1.00); Monocytes % (A) 4.4 %; NRBC Per 100 WBC 0 /100 WBCS (0.0-0.0); Neutrophils # (A) 16.57 X 10*3/uL (1.80-7.70); Neutrophils % (A) 86.8 %; Platelet Count 351 X 10*3/uL (140-440); RBC 4.01 X 10*6/uL (4.40-5.60); RDW 12.2 % (11.5-14.5); WBC 19.08 X 10*3/uL (4.50-10.00)
--- NOTE | 2022-09-21 12:00 | P.PN ---
Subjective Patient is seen in follow-up for acute kidney injury and chronic kidney disease. Renal function stable. Has been voiding. Denies chest pain or shortness of breath. Blood pressure stable. Sitting up in chair. On room air. No active complaints. Vital signs are stable. General: No acute distress. HEENT: Head exam is unremarkable. LUNGS: Breath sounds decreased. HEART: Rate and Rhythm are regular. ABDOMEN: Soft, no distention. EXTREMITITES: No edema. Objective - Vital Signs Vital signs: Vital Signs Temp 98.6 F 09/21/22 07:35 Pulse 88 09/21/22 11:51 Resp 18 09/21/22 09:05 BP 123/60 09/21/22 07:35 Pulse Ox 96 09/21/22 07:35 FiO2 Intake & Output 09/20/22 09/21/22 09/21/22 18:59 06:59 18:59 Other: Voiding Method Toilet Toilet Toilet Diaper Diaper # Voids 5 1 - Labs CBC & Chem 7: 09/21/22 04:32 09/21/22 04:32 Labs: Abnormal Lab Results - Last 24 Hours (Table) 09/20/22 09/20/22 09/20/22 Range/Units 16:43 16:43 16:43 WBC 19.3 H (3.8-10.6) k/uL RBC 4.06 L (4.30-5.90) m/uL MCV (80.0-97.0) fL MCH (27.0-32.0) pg Immature Gran # (0.00-0.04) X 10*3/uL Neutrophils # 17.3 H (1.3-7.7) k/uL Lymphocytes # 0.8 L (1.0-4.8) k/uL Eosinophils # (0.04-0.35) X 10*3/uL Sodium 136 L (137-145) mmol/L Carbon Dioxide (20.0-27.5) mmol/L Anion Gap (10.00-18.00) mmol/L BUN 40 H (9-20) mg/dL Est GFR (CKD-EPI)AfAm (60.0-200.0) Est GFR (CKD-EPI)NonAf (60.0-200.0) BUN/Creatinine Ratio (12.00-20.00) Ratio Glucose 195 H (74-99) mg/dL POC Glucose (mg/dL) 235 H (70-110) mg/dL 09/20/22 09/21/22 09/21/22 Range/Units 20:47 04:32 04:32 WBC 19.08 H (3.8-10.6) k/uL RBC 4.01 L (4.30-5.90) m/uL MCV 99.0 H (80.0-97.0) fL MCH 32.9 H (27.0-32.0) pg Immature Gran # 0.60 H (0.00-0.04) X 10*3/uL Neutrophils # 16.57 H (1.3-7.7) k/uL Lymphocytes # (1.0-4.8) k/uL Eosinophils # 0 L (0.04-0.35) X 10*3/uL Sodium (137-145) mmol/L Carbon Dioxide 29.2 H (20.0-27.5) mmol/L Anion Gap 9.80 L (10.00-18.00) mmol/L BUN 37.6 H (9-20) mg/dL Est GFR (CKD-EPI)AfAm 57.3 L (60.0-200.0) Est GFR (CKD-EPI)NonAf 49.4 L (60.0-200.0) BUN/Creatinine Ratio 28.92 H (12.00-20.00) Ratio Glucose 165 H (74-99) mg/dL POC Glucose (mg/dL) 149 H (70-110) mg/dL 09/21/22 Range/Units 06:13 WBC (3.8-10.6) k/uL RBC (4.30-5.90) m/uL MCV (80.0-97.0) fL MCH (27.0-32.0) pg Immature Gran # (0.00-0.04) X 10*3/uL Neutrophils # (1.3-7.7) k/uL Lymphocytes # (1.0-4.8) k/uL Eosinophils # (0.04-0.35) X 10*3/uL Sodium (137-145) mmol/L Carbon Dioxide (20.0-27.5) mmol/L Anion Gap (10.00-18.00) mmol/L BUN (9-20) mg/dL Est GFR (CKD-EPI)AfAm (60.0-200.0) Est GFR (CKD-EPI)NonAf (60.0-200.0) BUN/Creatinine Ratio (12.00-20.00) Ratio Glucose (74-99) mg/dL POC Glucose (mg/dL) 164 H (70-110) mg/dL Assessment and Plan Plan: Assessment: 1. Acute kidney injury secondary to ATN secondary to rhabdomyolysis. Renal function stable. Creatinine 1.3 today. Kidney ultrasound from July 2022 showed no evidence of hydronephrosis. 2. Status post fall. No acute fracture noted. 3. 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 4. Hypertension with chronic kidney disease. Stable. 5. Rhabdomyolysis. CK levels trending down. 6. Hypokalemia from poor intake. Replace. No normal. Magnesium normal. 7. Viral pneumonia being followed by pulmonary. 8. Chronic kidney disease mineral bone disease maintained on calcitriol. Plan: Remains off IV fluids. Preserved ejection fraction. Avoid nephrotoxins. Continue to monitor renal function and urine output. Encourage oral intake. Follow up outpatient 1 week post discharge.
[2022-09-21 12:06] LABS: Glucose,Whole Blood 225 mg/dL (70-110)
--- NOTE | 2022-09-21 12:57 | XR ---
EXAMINATION TYPE: XR chest 1V portable DATE OF EXAM: 09/21/2022 12:53 PM COMPARISON: Chest radiographs from 09/15/2022 TECHNIQUE: XR chest 1V portable Portable AP radiograph of the chest. CLINICAL INDICATION:Male, 87 years old with history of pneumonia; FINDINGS: Lungs/Pleura: Improved aeration of the lungs with increased interstitial lung markings. There is no e vidence of pleural effusion, focal consolidation, or pneumothorax. Pulmonary vascularity: Unremarkable. Heart/mediastinum: Cardiomediastinal silhouette is unremarkable. Musculoskeletal: Degeneration changes of the right shoulder are unchanged possible joint body noted. Degeneration of the shoulders. IMPRESSION: Improved aeration of the lungs on today's exam with persistent interstitial prominence.
[2022-09-21] MEDS: methylPREDNISolone SOD SUCCI 125 MG/2 ML VIAL IV SCH ×2 (15:51→20:38)
[2022-09-21] MEDS: ACETAMINOPHEN TAB 325 MG TAB PO PRN (15:52)
[2022-09-21 16:53] LABS: Glucose,Whole Blood 182 mg/dL (70-110)
[2022-09-21 18:35] VITALS: RESP 17
[2022-09-21 20:25] LABS: Glucose,Whole Blood 185 mg/dL (70-110)
[2022-09-21] MEDS: MAGNESIUM OXIDE 400 MG TAB PO SCH (20:38)
[2022-09-21] MEDS: MONTELUKAST 10 MG TAB PO SCH (20:38)
[2022-09-21] MEDS: MELATONIN 5 MG TABLET PO SCH (20:38)
[2022-09-21] MEDS: FAMOTIDINE 20 MG TAB PO SCH (20:38)
[2022-09-21] MEDS: PRAZOSIN 1 MG CAP PO SCH (20:38)
[2022-09-22] MEDS: methylPREDNISolone SOD SUCCI 125 MG/2 ML VIAL IV SCH ×3 (03:19→16:07)
[2022-09-22] MEDS: IPRATROPIUM-ALBUTEROL 3 ML NEB INHALATION SCH ×2 (05:16→11:58)
--- NOTE | 2022-09-22 06:11 | P.CONS ---
History of Present Illness - Reason for Consult Consult date: 09/21/22 RSV Requesting physician: Suyapa Hatfield - Chief Complaint weakness x few days - History of Present Illness History of Present Illness : Patient is a 87-year-old male with a past medical history significant for COPD hyperlipidemia hypertension history of prostate cancer presenting to the ER about 8 days ago after apparently the patient was found to be on the floor for 24 hours patient mention he was feeling so weak unable to get up patient also complaining of increasing shortness of breath he did have some cough and yellow sputum production however no high-grade fever on presentation to the hospital the patient was afebrile and no fever has been recorded subsequently patient did have normal white count on admission however the white count has been slowly trending up and is up to 19,000 today did have a normal BUN and creatinine on admission the BUN is trending up puracol plus mildly elevated 0.24 on 09/16/2022 and did have elevated D-dimer urine has been negative patient RSV PCR came back positive on 09/15/2022 and the patient has been managed by admitting and pulmonary status in addition to the nephrology patient did have a chest x-ray on admission no active cardiopulmonary disease process COPD changes chest x-ray was repeated this morning shows improved aeration of the lungs with persistent interstitial prominence patient did have a venous Doppler dose has been negative for DVT and VQ scan completed yesterday morning low probability for PE, infectious disease was consulted today on 09/21/2022 for RSV that was positive on 09/15/2022, patient is currently afebrile the patient mentioned his breathing comfortably and has been on room air patient denies having any chest pain patient denies have any worsening cough or sputum production. Denies having any nausea or vomiting no abdominal pain no diarrhea Review of system: CONSTITUTIONAL: Positive for weakness denies fever. EYES: No complaint. ENT: No complaint. RESPIRATORY as per history of present illness CARDIOVASCULAR: No complaint. GENITOURINARY: No complaint. GASTROINTESTINAL: No complaint. MUSCULOSKELETAL: No complaint. INTEGUMENTARY : No complaint. PSYCHOLOGIC: No complaint. ENDOCRINE: No complaint. NEUROLOGIC: No complaint. Past medical history : Reviewed, documented below Past surgical history : Reviewed, documented below Social history: Reviewed, documented below Medications: Reviewed, as documented below EXAMINATION: Vital sigans= Reviewed and documented below GENERAL DESCRIPTION: Elderly male lying in bed, no distress. No tachypnea or accessory muscle of respiration use. HEENT: Shows Pallor , no scleral icterus. Oral mucous membrane is dry. NECK: Trachea central, no thyromegaly. LUNGS: Unlabored breathing. Coarse breath sounds bilaterally HEART: S1, S2, regular rate and rhythm. ABDOMEN: Soft, no tenderness , guarding or rigidity EXTREMITIES: No edema feet SKIN: No rash, no masses palpable. NEUROLOGICAL: The patient is awake, alert, oriented x3, mood and affect normal. LABS AND RADIOLOGY: Reviewed results see below Assessment : 1patient presented to hospital with weakness which is likely multifactorial in this patient who do have a positive RSV PCR on admission patient chest x-ray did not show any acute cardiopulmonary disease patient did not have any fever during this hospital stay and is currently not hypoxic treatment will be mostly supportive. 2patient with elevated white count more likely steroid effect as the patient has been on Solu-Medrol since 09/16/2022 Plan: 1-no need for antiviral or any specific treatment for RSV at this point 2-we will repeat his inflammatory markers keeping in mind his elevated white count the clinic suspicious low for secondary bacterial pneumonia 3-contact precautions We will follow on clinical condition and cultures to further adjust medication if needed Thank you for this consultation we will follow the patient along with you Past Medical History Past Medical History: Cancer, COPD, Hyperlipidemia, Hypertension, Renal Disease Additional Past Medical History / Comment(s): Hx skin cancer, hx prostate cancer 15-20 yrs ago. 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 Past Drug Use History: None Reported - Past Family History Mother Family Medical History: No Reported History Medications and Allergies Home Medications Medication Instructions Recorded Confirmed Type Atorvastatin Calcium [Lipitor] 20 mg PO DAILY 12/19/21 09/13/22 History Bumetanide 0.5 mg PO DAILY 12/19/21 09/13/22 History Cholecalciferol [Vitamin D3 (25 25 mcg PO DAILY 12/19/21 09/13/22 History Mcg = 1000 Iu)] Fluticasone Propion/Salmeterol 1 puff INHALATION RT-BID 12/19/21 09/13/22 History [Fluticasone-Salmeterol 250-50] Ginkgo Biloba [place] Extract [Ginkgo] 60 mg PO DAILY 12/19/21 09/13/22 History Magnesium Oxide [Mag-Ox] 500 mg PO HS 12/19/21 09/13/22 History Montelukast Sodium [Singulair] 10 mg PO HS 12/19/21 09/13/22 History Tiotropium 18 Mcg/Puff [Spiriva] 1 puff INHALATION RT-DAILY 12/19/21 09/13/22 History Vit C/E/Zn/Coppr/Lutein/Zeaxan 1 cap PO BID 12/19/21 09/13/22 History [Preservision Areds 2 Softgel] calcitrioL [Calcitriol] 0.25 mcg PO DAILY 12/19/21 09/13/22 History Albuterol Nebulized [Ventolin 2.5 mg INHALATION RT-Q6H PRN 09/13/22 09/13/22 History Nebulized] Ascorbic Acid [Vitamin C with Linda 1,000 mg PO DAILY 09/13/22 09/13/22 History Hips] Multivit-Min/FA/Lycopen/Lutein 1 tab PO DAILY 09/13/22 09/13/22 History [Centrum Silver Men Tablet] Potassium Gluconate [Potassium 99 mg PO DAILY 09/13/22 09/13/22 History Gluconate ER] Prazosin HCl 2 mg PO HS 09/13/22 09/13/22 History amLODIPine [Norvasc] 5 mg PO DAILY 09/13/22 09/13/22 History Allergies Allergy/AdvReac Type Severity Reaction Status Date / Time carbamide peroxide Allergy Rash/Hives Verified 09/13/22 16:08 lisinopril AdvReac Cough Verified 09/13/22 16:08 Physical Exam Vitals: Vital Signs Temp Pulse Pulse Resp BP BP Pulse Ox 09/21/22 11:51 88 09/21/22 11:42 80 09/21/22 09:05 18 09/21/22 08:44 92 09/21/22 08:36 88 09/21/22 07:35 98.6 F 77 19 123/60 96 09/21/22 02:00 97.4 F L 78 18 138/67 95 09/20/22 21:29 89 09/20/22 21:18 90 09/20/22 20:58 124/68 09/20/22 20:05 98.5 F 88 19 130/66 93 L 09/20/22 17:23 86 09/20/22 17:13 85 09/20/22 14:00 97.5 F L 92 17 114/53 94 L 09/20/22 13:03 88 09/20/22 12:52 88 Intake and Output 09/20/22 09/21/22 09/21/22 22:59 06:59 14:59 Other: Voiding Method Toilet Toilet Diaper Diaper # Voids 5 1 Results CBC & Chem 7: 09/21/22 04:32 09/21/22 04:32 Labs: Abnormal Lab Results - Last 24 Hours (Table) 09/20/22 09/20/22 09/20/22 Range/Units 16:43 16:43 16:43 WBC 19.3 H (3.8-10.6) k/uL RBC 4.06 L (4.30-5.90) m/uL MCV (80.0-97.0) fL MCH (27.0-32.0) pg Immature Gran # (0.00-0.04) X 10*3/uL Neutrophils # 17.3 H (1.3-7.7) k/uL Lymphocytes # 0.8 L (1.0-4.8) k/uL Eosinophils # (0.04-0.35) X 10*3/uL Sodium 136 L (137-145) mmol/L Carbon Dioxide (20.0-27.5) mmol/L Anion Gap (10.00-18.00) mmol/L BUN 40 H (9-20) mg/dL Est GFR (CKD-EPI)AfAm (60.0-200.0) Est GFR (CKD-EPI)NonAf (60.0-200.0) BUN/Creatinine Ratio (12.00-20.00) Ratio Glucose 195 H (74-99) mg/dL POC Glucose (mg/dL) 235 H (70-110) mg/dL 09/20/22 09/21/22 09/21/22 Range/Units 20:47 04:32 04:32 WBC 19.08 H (3.8-10.6) k/uL RBC 4.01 L (4.30-5.90) m/uL MCV 99.0 H (80.0-97.0) fL MCH 32.9 H (27.0-32.0) pg Immature Gran # 0.60 H (0.00-0.04) X 10*3/uL Neutrophils # 16.57 H (1.3-7.7) k/uL Lymphocytes # (1.0-4.8) k/uL Eosinophils # 0 L (0.04-0.35) X 10*3/uL Sodium (137-145) mmol/L Carbon Dioxide 29.2 H (20.0-27.5) mmol/L Anion Gap 9.80 L (10.00-18.00) mmol/L BUN 37.6 H (9-20) mg/dL Est GFR (CKD-EPI)AfAm 57.3 L (60.0-200.0) Est GFR (CKD-EPI)NonAf 49.4 L (60.0-200.0) BUN/Creatinine Ratio 28.92 H (12.00-20.00) Ratio Glucose 165 H (74-99) mg/dL POC Glucose (mg/dL) 149 H (70-110) mg/dL 09/21/22 Range/Units 06:13 WBC (3.8-10.6) k/uL RBC (4.30-5.90) m/uL MCV (80.0-97.0) fL MCH (27.0-32.0) pg Immature Gran # (0.00-0.04) X 10*3/uL Neutrophils # (1.3-7.7) k/uL Lymphocytes # (1.0-4.8) k/uL Eosinophils # (0.04-0.35) X 10*3/uL Sodium (137-145) mmol/L Carbon Dioxide (20.0-27.5) mmol/L Anion Gap (10.00-18.00) mmol/L BUN (9-20) mg/dL Est GFR (CKD-EPI)AfAm (60.0-200.0) Est GFR (CKD-EPI)NonAf (60.0-200.0) BUN/Creatinine Ratio (12.00-20.00) Ratio Glucose (74-99) mg/dL POC Glucose (mg/dL) 164 H (70-110) mg/dL
[2022-09-22 06:26] LABS: Glucose,Whole Blood 178 mg/dL (70-110)
[2022-09-22] MEDS: INSULIN ASPART (NovoLOG) 100 UNIT/ML VIAL SQ SCH ×2 (06:44→12:30)
--- NOTE | 2022-09-22 07:04 | PN ---
PROGRESS NOTE DATE OF SERVICE: 09/21/2022 SUBJECTIVE: This 87-year-old gentleman, who was admitted with acute abdomen, has acute renal injury, also had bilateral pneumonia secondary to RSV. The patient is being closely monitored. No chest pain. No palpitation. OBJECTIVE: VITAL SIGNS: Pulse is 80, blood pressure is 123/60, respirations 19. HEENT: Conjunctivae normal. NECK: No JVD. CARDIOVASCULAR: S1, S2. RESPIRATION: Breath sounds diminished at the bases. A few scattered rhonchi. ABDOMEN: Soft. NERVOUS SYSTEM: Diffusely weak. LABORATORY DATA: Reviewed. ASSESSMENT: 1. Acute rhabdomyolysis with acute renal injury, present on admission. 2. Bilateral pneumonia secondary to respiratory syncytial virus. 3. Gait dysfunction. 4. History of fall. 5. Chronic obstructive pulmonary disease. 6. Multiple medical issues. RECOMMENDATIONS: In this 87-year-old gentleman, who presented with multiple complex medical issues, we will monitor the patient closely. I would recommend a repeat chest x-ray. Continue the rest of medications. PT/OT evaluation, possible ECF rehab. Closely follow with Pulmonary. The patient is on broad spectrum IV antibiotics. Further recommendations to follow. MMODL / IJN: [id number] /
[2022-09-22 08:56] VITALS: BP 121/64; TEMP 98
[2022-09-22 09:02] LABS: HGB 12.8 g/dL (13.0-17.0); MCH 32.4 pg (27.0-32.0); MCHC 32.8 g/dL (32.0-37.0); MCV 98.7 fL (80.0-97.0); Mean Platelet Volume 10.6 fL (9.5-12.2); NRBC Per 100 WBC 0 /100 WBCS (0.0-0.0); Platelet Count 332 X 10*3/uL (140-440); RBC 3.95 X 10*6/uL (4.40-5.60); RDW 12.1 % (11.5-14.5); WBC 24.27 X 10*3/uL (4.50-10.00)
[2022-09-22 09:22] LABS: African American GFR (CKD) 57.3 (60.0-200.0); Albumin 3.3 g/dL (3.8-4.9); Albumin/Globulin Ratio 1.32 (1.60-3.17); Anion Gap 13.4 mmol/L (10.00-18.00); BUN/Creat Ratio 31.31 Ratio (12.00-20.00); Blood Urea Nitrogen 40.7 mg/dL (9.0-27.0); Calcium 9.4 mg/dL (8.7-10.3); Carbon Dioxide 27.6 mmol/L (20.0-27.5); Globulin 2.5 g/dL (1.6-3.3); Non-African American GFR(CKD) 49.4 (60.0-200.0); Potassium 4.5 mmol/L (3.5-5.5); Total Bilirubin 0.4 mg/dL (0.30-1.20); Total Protein 5.8 g/dL (6.2-8.2)
[2022-09-22] MEDS: ATORVASTATIN 20 MG TAB PO SCH (09:45)
[2022-09-22] MEDS: amLODIPine 5 MG TAB PO SCH (09:45)
[2022-09-22] MEDS: CHOLECALCIFEROL 25 MCG (1000 IU) TABLET PO SCH (09:45)
[2022-09-22] MEDS: VIT A,C & E-LUTEIN-MINERALS 1 EACH TAB PO SCH (09:45)
[2022-09-22] MEDS: HEPARIN SODIUM,PORCINE/PF 5,000 UNIT/0.5 ML SYRINGE SQ SCH (09:45)
[2022-09-22] MEDS: ASCORBIC ACID 500 MG TAB PO SCH (09:45)
[2022-09-22 09:56] LABS: Basophils # (A) 0.07 X 10*3/uL (0.00-0.10); Basophils % (A) 0.3 %; Eosinophils # (A) 0 X 10*3/uL (0.04-0.35); Eosinophils % (A) 0 %; Immature Grans, Automated 2.3 %; Lymphocytes # (A) 0.99 X 10*3/uL (0.90-5.00); Lymphocytes % (A) 4.1 %; Monocytes # (A) 0.59 X 10*3/uL (0.20-1.00); Monocytes % (A) 2.4 %; Neutrophils # (A) 22.07 X 10*3/uL (1.80-7.70); Neutrophils % (A) 90.9 %
[2022-09-22 09:57] LABS: RBC Morphology NORMAL
--- NOTE | 2022-09-22 12:01 | P.PN ---
Subjective Patient is seen for follow-up for acute kidney injury and top of chronic kidney disease. No significant complaints today Renal function is stable with creatinine staying at about 1.3 mg/dL. Admission creatinine was 1.7. Currently not on any IV fluids or diuretics. Objective - Vital Signs Vital signs: Vital Signs Temp 98.0 F 09/22/22 08:00 Pulse 85 09/22/22 08:00 Resp 17 09/22/22 08:00 BP 121/64 09/22/22 08:00 Pulse Ox 92 L 09/22/22 08:00 FiO2 Intake & Output 09/21/22 09/22/22 09/22/22 18:59 06:59 18:59 Weight 79.379 kg Other: Voiding Method Toilet Toilet Diaper Diaper # Voids 2 3 - Exam Patient is awake, comfortable, no acute distress Examination of the heart S1 and S2 Examination lungs bilateral breath sounds are heard next and abdomen is soft, nontender Examination of lower extremity shows no significant edema - Labs CBC & Chem 7: 09/22/22 05:22 09/22/22 05:22 Labs: Abnormal Lab Results - Last 24 Hours (Table) 09/21/22 09/21/22 09/21/22 Range/Units 12:04 16:52 20:24 WBC (4.50-10.00) X 10*3/uL RBC (4.40-5.60) X 10*6/uL Hgb (13.0-17.0) g/dL Hct (39.6-50.0) % MCV (80.0-97.0) fL MCH (27.0-32.0) pg Immature Gran # (0.00-0.04) X 10*3/uL Neutrophils # (1.80-7.70) X 10*3/uL Eosinophils # (0.04-0.35) X 10*3/uL Carbon Dioxide (20.0-27.5) mmol/L BUN (9.0-27.0) mg/dL Est GFR (CKD-EPI)AfAm (60.0-200.0) Est GFR (CKD-EPI)NonAf (60.0-200.0) BUN/Creatinine Ratio (12.00-20.00) Ratio Glucose (70-110) mg/dL POC Glucose (mg/dL) 225 H 182 H 185 H (70-110) mg/dL AST (14-35) U/L ALT (10-49) U/L Total Protein (6.2-8.2) g/dL Albumin (3.8-4.9) g/dL Albumin/Globulin Ratio (1.60-3.17) g/dL 09/22/22 09/22/22 09/22/22 Range/Units 05:22 05:22 06:25 WBC 24.27 H (4.50-10.00) X 10*3/uL RBC 3.95 L (4.40-5.60) X 10*6/uL Hgb 12.8 L (13.0-17.0) g/dL Hct 39.0 L (39.6-50.0) % MCV 98.7 H (80.0-97.0) fL MCH 32.4 H (27.0-32.0) pg Immature Gran # 0.55 H (0.00-0.04) X 10*3/uL Neutrophils # 22.07 H (1.80-7.70) X 10*3/uL Eosinophils # 0 L (0.04-0.35) X 10*3/uL Carbon Dioxide 27.6 H (20.0-27.5) mmol/L BUN 40.7 H (9.0-27.0) mg/dL Est GFR (CKD-EPI)AfAm 57.3 L (60.0-200.0) Est GFR (CKD-EPI)NonAf 49.4 L (60.0-200.0) BUN/Creatinine Ratio 31.31 H (12.00-20.00) Ratio Glucose 162 H (70-110) mg/dL POC Glucose (mg/dL) 178 H (70-110) mg/dL AST 40 H (14-35) U/L ALT 125 H (10-49) U/L Total Protein 5.8 L (6.2-8.2) g/dL Albumin 3.3 L (3.8-4.9) g/dL Albumin/Globulin Ratio 1.32 L (1.60-3.17) g/dL Assessment and Plan Assessment: 1. Acute kidney injury secondary to ATN secondary to rhabdomyolysis. Renal function stable. Creatinine 1.3 today. Kidney ultrasound from July 2022 showed no evidence of hydronephrosis. 2. Status post fall. No acute fracture noted. 3. 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 4. Hypertension with chronic kidney disease. Stable. 5. Rhabdomyolysis. CK levels trending down. 6. Hypokalemia from poor intake. Replace. No normal. Magnesium normal. 7. Viral pneumonia being followed by pulmonary. 8. Chronic kidney disease mineral bone disease maintained on calcitriol. Plan: Continue current dose of calcitriol Continue off of IV fluids and diuretics for now Follow-up in the office in 1-2 weeks post discharge.
[2022-09-22 12:09] VITALS: PULSE 81
[2022-09-22 12:12] LABS: Glucose,Whole Blood 185 mg/dL (70-110)
--- NOTE | 2022-09-24 02:40 | P.DS ---
Providers Date of admission: 09/13/22 14:27 Expected date of discharge: 09/22/22 Attending physician: Chris Valentine MD Consults: 09/13/22 14:22 Consult Physician Routine Consulting Provider: Natasha Ray Consult Reason/Comments: rhabdomyolysis Do you want consulting provider notified?: Yes 09/14/22 06:24 Consult Physician Urgent Consulting Provider: Ekaterina Chavira Consult Reason/Comments: high troponin Do you want consulting provider notified?: Yes 09/15/22 17:36 Consult Physician Urgent Consulting Provider: Rosales Valentine Consult Reason/Comments: b/l pulmonary infilterates Do you want consulting provider notified?: Yes 09/21/22 10:15 Consult Physician Routine Consulting Provider: Shante Cardona Consult Reason/Comments: RSV Do you want consulting provider notified?: Yes Primary care physician: Physician Nonstaff Hospital Course: Final diagnosis Acute rhabdomyolysis with acute renal injury present on admission Bilateral pneumonia secondary to respiratory RSV Gait dysfunction History of fall Chronic obstructive pulmonary disease GI prophylaxis DVT prophylaxis Discharge disposition Patient is being discharged in a stable condition with guarded prognosis to home. Patient will follow-up with [facility] in the outpatient setting upon discharge. Patient is to continue with prednisone taper and close outpatient follow-up with pulmonary. Total time taken is greater than 35 minutes. Hospital course This is a 87-year-old male who was recently admitted with increased weakness and acute kidney injury with rhabdomyolysis with recent fall and being closely monitored. Patient was also evaluated and monitored by pulmonary for bilateral pneumonia secondary to RSV. Infectious disease following as well. Patient reports to feeling improved and adamant about going home. Patient denies any shortness of breath. Patient refusing any form a rehab along with family at bedside and patient will be going home. She has been cleared by pulmonary. Currently no reports of chest pain, shortness of breath, or palpitations. Patient is afebrile. No reports of nausea or vomiting and patient is tolerating diet. Patient will be discharged home today. Guarded prognosis. Physical exam: Gen: This is a 87-year-old male awake, alert and oriented 3, well-developed, well-nourished, elderly-appearing HEENT: Head is atraumatic, normocephalic. Pupils equal, round. Sclerae is anicteric. NECK: Supple. No JVD. No lymphadenopathy. No thyromegaly. LUNGS: Diminished breath sounds bilaterally with no wheezing and some mild scattered rhonchi noted No intercostal retractions. HEART: S1, S2 are muffled ABDOMEN: Soft. Bowel sounds are present. No masses. No tenderness. EXTREMITIES: No pedal edema. No calf tenderness. NEUROLOGICAL: Patient is awake, alert and oriented x3. Cranial nerves 2 through 12 are grossly intact. Please refer to medication reconciliation sheet for a list of medications. The impression and plan of care has been dictated by Rafaela Umana, Nurse Practitioner as directed. Dr. Liu MD I have performed a history and examination and MDM of this patient, discussed the same with the dictator, and agree with the dictator's assessment and plan as written ,documented as a scribe. Based on total visit time, I have performed more than 50% of the visit. Patient Condition at Discharge: Fair Plan - Discharge Summary Discharge Rx Participant: Yes New Discharge Prescriptions: New Ipratropium-Albuterol Nebulize [Duoneb 0.5 mg-3 mg/3 ml Soln] 3 ml INHALATION RT-QID #120 each Acetaminophen Tab [Tylenol] 325 mg PO Q6HR PRN tab PRN Reason: Fever And/ Or Pain predniSONE 10 mg PO DIRECTED #30 tab Continue Cholecalciferol [Vitamin D3 (25 Mcg = 1000 Iu)] 25 mcg PO DAILY calcitrioL [Calcitriol] 0.25 mcg PO DAILY Vit C/E/Zn/Coppr/Lutein/Zeaxan [Preservision Areds 2 Softgel] 1 cap PO BID Ginkgo Biloba [place] Extract [Ginkgo] 60 mg PO DAILY Albuterol Nebulized [Ventolin Nebulized] 2.5 mg INHALATION RT-Q6H PRN PRN Reason: Shortness Of Breath Prazosin HCl 2 mg PO HS Ascorbic Acid [Vitamin C with Linda Hips] 1,000 mg PO DAILY Tiotropium 18 Mcg/Puff [Spiriva] 1 puff INHALATION RT-DAILY Montelukast Sodium [Singulair] 10 mg PO HS Magnesium Oxide [Mag-Ox] 500 mg PO HS Fluticasone Propion/Salmeterol [Fluticasone-Salmeterol 250-50] 1 puff INHALATION RT-BID Atorvastatin Calcium [Lipitor] 20 mg PO DAILY Multivit-Min/FA/Lycopen/Lutein [Centrum Silver Men Tablet] 1 tab PO DAILY amLODIPine [Norvasc] 5 mg PO DAILY Discontinued Bumetanide 0.5 mg PO DAILY Potassium Gluconate [Potassium Gluconate ER] 99 mg PO DAILY Discharge Medication List Atorvastatin Calcium [Lipitor] 20 mg PO DAILY 12/19/21 [History] Cholecalciferol [Vitamin D3 (25 Mcg = 1000 Iu)] 25 mcg PO DAILY 12/19/21 [History] Fluticasone Propion/Salmeterol [Fluticasone-Salmeterol 250-50] 1 puff INHALATION RT-BID 12/19/21 [History] Ginkgo Biloba [place] Extract [Ginkgo] 60 mg PO DAILY 12/19/21 [History] Magnesium Oxide [Mag-Ox] 500 mg PO HS 12/19/21 [History] Montelukast Sodium [Singulair] 10 mg PO HS 12/19/21 [History] Tiotropium 18 Mcg/Puff [Spiriva] 1 puff INHALATION RT-DAILY 12/19/21 [History] Vit C/E/Zn/Coppr/Lutein/Zeaxan [Preservision Areds 2 Softgel] 1 cap PO BID 12/19/21 [History] calcitrioL [Calcitriol] 0.25 mcg PO DAILY 12/19/21 [History] Albuterol Nebulized [Ventolin Nebulized] 2.5 mg INHALATION RT-Q6H PRN 09/13/22 [History] Ascorbic Acid [Vitamin C with Linda Hips] 1,000 mg PO DAILY 09/13/22 [History] Multivit-Min/FA/Lycopen/Lutein [Centrum Silver Men Tablet] 1 tab PO DAILY 09/13/22 [History] Prazosin HCl 2 mg PO HS 09/13/22 [History] amLODIPine [Norvasc] 5 mg PO DAILY 09/13/22 [History] Acetaminophen Tab [Tylenol] 325 mg PO Q6HR PRN tab 09/22/22 [Rx] Ipratropium-Albuterol Nebulize [Duoneb 0.5 mg-3 mg/3 ml Soln] 3 ml INHALATION RT-QID #120 each 09/22/22 [Rx] predniSONE 10 mg PO DIRECTED #30 tab 09/22/22 [Rx] Follow up Appointment(s)/Referral(s): Natasha Ray MD [STAFF PHYSICIAN] - 11/18/22 9:00 am Dick Pino MD [STAFF PHYSICIAN] - 1 Week (office will call with appointment time ) None,Stated [REFERRING] - 1-2 days Vivian Montalvo MD [STAFF PHYSICIAN] - 09/29/22 2:30 pm Ambulatory/Diagnostic Orders: Complete Blood Count w/diff [LAB.AMB] Time Frame: 3 Days, Location: None Selected Patient Instructions/Handouts: Respiratory Syncytial Virus (DC) Activity/Diet/Wound Care/Special Instructions: [facility] will assign homecare, you will need to call them Activity Limited until follow-up Recommend follow-up at the [facility] in [place] this week Follow-up with cardiology outpatient Follow-up with pulmonary outpatient Continue taking medications as prescribed Discharge Disposition: HOME SELF-CARE
== END 2022-09-22 16:31 | disposition home or self-care (01) | DRG 564 ==
LOC: EC 11:30 → 5NMEDONC 14:27 → 4SSUR 09-15 18:52
PROVIDERS: ADMIT Internal Medicine; ATTEND Internal Medicine
DX: T79.6XXA Traumatic ischemia of muscle, initial encounter (principal); J12.1 Respiratory syncytial virus pneumonia; J96.01 Acute respiratory failure with hypoxia; N17.0 Acute kidney failure with tubular necrosis; I13.0 Hypertensive heart and chronic kidney disease with heart failure and stage 1 through stage 4 chronic kidney disease, or unspecified chronic kidney disease; I24.9 Acute ischemic heart disease, unspecified; J44.0 Chronic obstructive pulmonary disease with (acute) lower respiratory infection; Z87.891 Personal history of nicotine dependence; I50.9 Heart failure, unspecified; E78.5 Hyperlipidemia, unspecified; E87.6 Hypokalemia; I45.9 Conduction disorder, unspecified; I70.0 Atherosclerosis of aorta; J98.01 Acute bronchospasm; R74.01 Elevation of levels of liver transaminase levels; R26.9 Unspecified abnormalities of gait and mobility; E83.9 Disorder of mineral metabolism, unspecified; R77.8 Other specified abnormalities of plasma proteins; N18.32 Chronic kidney disease, stage 3b; R31.9 Hematuria, unspecified; W01.0XXA Fall on same level from slipping, tripping and stumbling without subsequent striking against object, initial encounter; Y92.009 Unspecified place in unspecified non-institutional (private) residence as the place of occurrence of the external cause; S00.01XA Abrasion of scalp, initial encounter; Z20.822 Contact with and (suspected) exposure to COVID-19; Z79.01 Long term (current) use of anticoagulants; Z79.51 Long term (current) use of inhaled steroids; Z79.899 Other long term (current) drug therapy; Z85.46 Personal history of malignant neoplasm of prostate; Z85.828 Personal history of other malignant neoplasm of skin; Z60.2 Problems related to living alone; Z71.3 Dietary counseling and surveillance; Z88.8 Allergy status to other drugs, medicaments and biological substances
CPT/HCPCS: 36415; 70450; 71045; 71046; 72125; 72170; 78582; 80048; 80053; 80076; 81001; 82550; 83605; 83690; 83735; 83880; 84145; 84484; 85025; 85379; 85610; 85730; 87636; 93005; 93306; 93970; 94640; 94760; 96360; 96361; 99285

== ENCOUNTER → 2023-09-13 | Outpatient (CLI) | payer OTHER ==
--- NOTE | 2023-09-13 09:58 | US ---
EXAMINATION TYPE: US kidneys/renal and bladder DATE OF EXAM: 09/13/2023 COMPARISON: 08/03/2023 CLINICAL INDICATION: Male, 88 years old with history of N18.32 CHRONIC KIDNEY DISEASE, STAGE 3B; CKD EXAM MEASUREMENTS: Right Kidney: 9.7 x 4.2 x 3.9 cm Left Kidney: 10.5 x 5.0 x 4.4 cm Right Kidney: echogenic. thin renal cortex. anechoic area = 2.0 x 1.8 x 2.0 cm Left Kidney: echogenic Bladder: appears wnl Bilateral Jets seen: yes There is no evidence for hydronephrosis at this point in time. No nephrolithiasis is seen. No mandie s are identified. The urinary bladder is anechoic. Bilateral ureteral jets are seen. IMPRESSION: 1. No evidence for acute process. 2. Medical renal disease with increased echotexture of the renal cortex. Cortical medullary differen tiation is maintained. 3. Minimally complicated right cyst.
== END | disposition home or self-care (01) ==
LOC: RADUSWWP 09:16
PROVIDERS: ATTEND Internal Medicine
DX: N28.1 Cyst of kidney, acquired (principal); N18.32 Chronic kidney disease, stage 3b
CPT/HCPCS: 76770